=== PATIENT | male | born 1945 | race Caucasian/White ===

== ENCOUNTER 2018-12-28 10:47 | Emergency (ER) | payer MEDICARE, OTHER ==
[2018-12-28] MEDS ORDERED: Dextrose 50% Abboject 50 ML SYRINGE ONE (11:57)
[2018-12-28] MEDS ORDERED: Octreotide Acetate 100 MCG/ML VIAL ONE (12:07)
== END 2018-12-28 15:05 | disposition home or self-care (01) ==
LOC: ERS 10:47
DX: E11.649 Type 2 diabetes mellitus with hypoglycemia without coma (principal); I10 Essential (primary) hypertension; Z79.899 Other long term (current) drug therapy; Z79.4 Long term (current) use of insulin
CPT/HCPCS: 82962; J2354; 36416; 96372; 96374

== ENCOUNTER 2019-04-11 09:42 | Inpatient (IN) | payer MEDICARE, OTHER ==
[2019-04-11 11:02] LABS: Bacteria/HPF None Seen HPF (None Seen); Bilirubin Negative (Negative); Blood, Urine 1+ (Negative); Clarity Clear (Clear); Glucose, Urine (Dipstick) Greater than 1000 mg/dL (Negative); Leukocyte Negative Leu/uL (Negative); Nitrite Negative (Negative); Protein, Urine (Dipstick) 100 mg/dL (Neg-Trace); RBC/HPF 0-3 HPF (0-3); Squamous Epithelial 0-3 HPF (0-3); Urobilinogen Normal mg/dL (Less than 2); WBC/HPF 0-3 HPF (0-3)
[2019-04-11 11:43] LABS: #Eosinphils 0.1 thou/uL (0.0-0.7); #Lymphocytes 1.2 thou/uL (1.20-3.40); #Monocytes 0.7 thou/uL (0.11-0.59); %Basophils 0.4 % (0.0-1.0); %Eosinophils 0.9 % (0.0-10.0); %Lymphocytes 17.1 % (21.0-51.0); %Monocytes 10.6 % (0.0-10.0); %Neutrophils 71.1 % (42.0-75.0); Hemoglobin 13.8 g/dL (14.0-18.0); Mean Corpuscular HGB CONC 34.3 g/dL (32.0-36.0); Mean Corpuscular Volume 96.2 fL (78.0-98.0); Platelet Count 202 thou/uL (130-400); RBC Distribution Width 13.9 % (11.5-14.5)
--- NOTE | 2019-04-11 11:47 | CT ---
NONCONTRAST CT HEAD: Date: 04/11/19 HISTORY: Altered mental status. Recent fall. COMPARISON: 12/05/10. FINDINGS: Diminished attenuation is seen in the periventricular white matter, which is nonspecific, but likely attributable to chronic small vessel ischemic changes, which do appear progressed when compared to th e prior exam. There is a low density area in the left parietal lobe. While this could potentially rep resent volume averaging through a sulcus, this is worrisome for a small focal area of encephalomalaci a, likely related to remote area of infarction. There is no evidence of an acute cortical infarction, hemorrhage, mass effect, or midline shift. There is mild cerebral volume loss. The ventricular syste m is normal in size, shape, and position for the degree of sulcal atrophy. Calvarial structures have a normal appearance. The visualized paranasal sinuses and mastoid air cells are clear. IMPRESSION: No acute intracranial abnormality is demonstrated. POS: [facility]
[2019-04-11 12:14] LABS: ALT (SGPT) 13 U/L (8-55); AST (SGOT) 13 U/L (5-34); Albumin 3.5 g/dL (3.4-4.8); Alcohol Less than 10 mg/dL (Less than 10); Alkaline Phosphatase 85 U/L (40-150); Anion Gap 24 mmol/L (10-20); BUN (Urea Nitrogen) 12 mg/dL (8.4-25.7); Bilirubin, Total 0.8 mg/dL (0.2-1.2); CK (CPK) 80 U/L (30-200); Calc. Creatinine Clearance 0 mL/min (70-130); Calcium 8.8 mg/dL (7.8-10.44); Carbon Dioxide 15 mmol/L (23-31); Chloride 101 mmol/L (98-107); Estimated GFR-MDRD 56; Globulin 3.1 g/dL (2.4-3.5); Glucose 441 mg/dL (83-110); Protein, Total 6.6 g/dL (5.8-8.1); Sodium 137 mmol/L (136-145)
--- NOTE | 2019-04-11 12:16 | RAD ---
XR Chest 1 View Portable History: Trauma Comparison: Radiograph 2017 Findings: Heart size is enlarged. Mild pulmonary venous congestion. No pneumothorax. No effusion. No acute osseous abnormality. Impression: Cardiomegaly and pulmonary venous congestion.
[2019-04-11 12:20] LABS: Potassium 2.8 mmol/L (3.5-5.1)
[2019-04-11 12:26] LABS: CKMB 3.9 ng/mL (0-6.6)
[2019-04-11] MEDS ORDERED: Lorazepam 2 MG/ML VIAL ONE (13:07)
[2019-04-11] MEDS ORDERED: Insulin Regular 300 UNITS/3 ML VIAL ONE (13:30)
--- NOTE | 2019-04-11 13:36 | RAD ---
XR Wrist 3 Rt View STANDARD History: Wrist pain Comparison: None. Findings: No acute fracture or malalignment. Mild narrowing of the radiocarpal joint. Small wrist nick nt effusion. Impression: No acute fracture or malalignment. Mild radiocarpal joint space narrowing, degenerative i n nature.
[2019-04-11] MEDS ORDERED: HUMULIN R 100 UNITS in Sodium Chloride 0.9% 100 ML IVPB SCH (14:15)
--- NOTE | 2019-04-11 14:32 | HP ---
PRIMARY CARE PHYSICIAN: Gilberto Bell MD CHIEF COMPLAINT: "I fell at home." HISTORY OF PRESENT ILLNESS: Mr. Gray is a pleasant 73-year-old gentleman, who was brought in via EMS. Apparently, his called because he had a fall. The patient is a bit altered and therefore, it is unclear how reliable his history is. He knows where he is and what year it is, but he does not follow commands all the time and sometimes he will have a long delay when answering questions and does not always answer them. But apparently, he has a history of diabetes mellitus and hypertension and he was becoming lightheaded and falling. The patient says that he has been feeling unsteady for the last couple of weeks. He also notes trouble with his urine. He says that when he feels the urge to go to the bathroom, he has to go right then, but then he will not make it in time and will notice a lot of dribbling down his leg. He also says that he has been extremely thirsty for the last few weeks, but denies any fevers or chills or nausea or vomiting. He is unable to tell me how much insulin he normally takes for his diabetes, nor he is able to answer the question whether or not he has missed any doses, but when he arrived in the emergency room, his blood glucose was in the 400s. His CO2 level was low and he had a high anion gap. He is being admitted for DKA. The patient also had a CT scan of the head, which was negative and also had a chest x-ray showing some mild pulmonary vascular congestion. REVIEW OF SYSTEMS: CONSTITUTIONAL: The patient denies any fevers or chills. No night sweats. No weight loss. HEENT: He does admit to some mild headache, but no visual changes. No sore throat. No rhinorrhea. No neck pain. No adenopathy. PULMONARY: No hemoptysis. No cough. No wheezing. CARDIOVASCULAR: He denies any chest pain. No shortness of breath. No PND. No orthopnea. GASTROINTESTINAL: No abdominal pain. No nausea. No vomiting. No change in bowels. GENITOURINARY: He does admit to some urinary frequency and difficulty controlling his bladder. No dysuria. No hematuria. MUSCULOSKELETAL: No muscle pains, weakness, or joint pains. NEUROLOGIC: No focal weakness or numbness. No seizures. PSYCHIATRIC: No symptoms of anxiety or depression. SKIN AND INTEGUMENT: No skin changes. No rash. ENDOCRINE: He does admit to polyuria and polydipsia. PAST MEDICAL HISTORY: Significant for diabetes mellitus type 2 as well as hypertension. PAST SURGICAL HISTORY: He has had a cholecystectomy as well as surgery for an ingrown toe nail. ALLERGIES: NO KNOWN DRUG ALLERGIES. SOCIAL HISTORY: He is . He is a nonsmoker. He occasionally drinks. He has 2 children. FAMILY HISTORY: Negative for any heritable diseases. CURRENT MEDICATIONS: Unknown. PHYSICAL EXAMINATION: GENERAL: He is alert, but he is a bit disoriented even though he is able to tell me where he is and what he thought it was 2019, but he did know the month. He does appear altered and confused. VITAL SIGNS: The blood pressure was 183/92, heart rate 70, respiratory rate of 16, and temperature is 98.3. HEENT: His pupils are equal, round, and reactive to light. Extraocular muscles are intact. His sclerae are anicteric. Throat, there is no erythema. No exudates. NECK: No adenopathy. No bruits. LUNGS: Clear to auscultation. There is an occasional rhonchi, but no wheezing. No rales. CARDIOVASCULAR: He has a normal S1 and S2. There is no S3 or S4. No murmurs, clicks, or rubs. ABDOMEN: Soft. It is nontender and nondistended. Positive for bowel sounds. There is no rebound or guarding. EXTREMITIES: He has trace calf edema. No calf tenderness, however. No joint effusions. He does appear to have a scar on the knee, possibly a surgical scar. NEUROLOGIC: His cranial nerves II through XII are intact and his muscle strength is 5/5. SKIN AND INTEGUMENT: He has some excoriations on his right upper extremity with some mild erythema surrounding them. Multiple scratches and on his feet, he has mycotic nails and then excoriation under the plantar aspect of the right foot. LABORATORY DATA: The urinalysis was significant for glucose as well as ketones. On the CBC, the white blood cell count is 7.0, hemoglobin is 13.8, hematocrit is 40.4, and platelet count is 202. Sodium is 137, potassium 2.8, chloride is 101, CO2 is 15, BUN of 12, creatinine 1.26, and glucose is 441. Troponin is 0.040. Natriuretic peptide is 215, and hydroxybutyrate was 7.32. ASSESSMENT AND PLAN: 1. This is a pleasant 73-year-old gentleman, who presents with generalized weakness and falls as well as elevated blood glucose and elevated anion gap. He is a technically in diabetic ketoacidosis and with his alterations, which is unclear whether or not this is new or not, he will be treated as such and admitted to the [facility], started on the insulin drip protocol for diabetic ketoacidosis. 2. With regard to hypertension, for now, we will place him on p.r.n. medications for elevated blood pressure. Once he is more stabilized, then we can consider an MABEL inhibitor. We will also need to reconcile and restart his home medications as well. 3. Metabolic encephalopathy. This is likely due to the current illness. However, there he could have some baseline dementia as he does not appear to be very well cared for. This may be a chronic ongoing problem and for this reason, we will consult Case Management to see if we can investigate his home situation and he may need some additional help at home such as home health. Job ID: [id number]
[2019-04-11] MEDS ORDERED: Sodium Chloride 0.9% 1,000 ML IV PRN ×4 (16:50)
[2019-04-11] MEDS ORDERED: cloNIDine 0.1 MG TAB PO PRN (16:50)
[2019-04-11] MEDS ORDERED: NS 0.9% w/ 20 MEQ KCL 1,000 ML IV PRN ×2 (16:50)
[2019-04-11] MEDS ORDERED: CCU Electrolyte Replacement 1 EACH IVPB ONE (16:50)
[2019-04-11] MEDS ORDERED: Ondansetron PF 4 MG/2 ML Vial IVP PRN (16:50)
[2019-04-11] MEDS ORDERED: Dextrose 5 %-0.45 % NaCl 1,000 ML IV PRN (16:50)
[2019-04-11] MEDS ORDERED: Ondansetron ODT 4 MG TAB PO PRN (16:50)
[2019-04-11] MEDS ORDERED: Magnesium Oxide 400 MG TAB PO PRN ×2 (16:55)
[2019-04-11] MEDS ORDERED: Potassium Phosphate 9 MMOL in Sodium Chloride 0.9% 100 ML IVPB PRN (16:55)
[2019-04-11] MEDS ORDERED: Potassium Chloride 40 MEQ in Premix Bag 1 BAG IVPB PRN (16:55)
[2019-04-11] MEDS ORDERED: Potassium Phosphate 12 MMOL in Sodium Chloride 0.9% 250 ML 250 ML IV PRN (16:55)
[2019-04-11] MEDS ORDERED: PHOS-NAK 1 PKT PACK PO PRN ×2 (16:55)
[2019-04-11] MEDS ORDERED: Potassium Chloride 20 MEQ TAB PO PRN (16:55)
[2019-04-11] MEDS ORDERED: CCU ELECTROLYTE REPLACEMENT PROTOCOL FS PRN (16:55)
[2019-04-11] MEDS ORDERED: Potassium Phosphate 15 MMOL in Sodium Chloride 0.9% 250 ML 250 ML IV PRN (16:55)
[2019-04-11] MEDS ORDERED: Multivitamins, Adult 10 ML in Sodium Chloride 0.9% 500 ML IV SCH (17:15)
[2019-04-11 17:25] LABS: Anion Gap 23 mmol/L (10-20); BUN (Urea Nitrogen) 10 mg/dL (8.4-25.7); Calc. Creatinine Clearance 0 mL/min (70-130); Calcium 9.1 mg/dL (7.8-10.44); Carbon Dioxide 13 mmol/L (23-31); Chloride 106 mmol/L (98-107); Estimated GFR-MDRD 64; Glucose 166 mg/dL (83-110); Sodium 139 mmol/L (136-145)
[2019-04-11] MEDS: Lorazepam 2 MG/ML VIAL SLOW IVP PRN ×2 (17:31→23:42)
[2019-04-11 17:37] LABS: Potassium 2.9 mmol/L (3.5-5.1)
[2019-04-11] MEDS: Thiamine HCl 200 MG/2 ML VIAL SLOW IVP SCH (18:25)
[2019-04-11] MEDS: D5 1/2 NS w/20 mEq KCL 1,000 ML IV PRN ×2 (18:31→22:51)
[2019-04-11] MEDS: hydrALAZINE 20 MG/ML VIAL SLOW IVP PRN (19:22)
[2019-04-11] MEDS ORDERED: Acetaminophen 1,000 MG in Premix Bag 1 BAG IVPB SCH (20:45)
[2019-04-11] MEDS ORDERED: Metoprolol Tartrate 5 MG/5 ML VIAL IVP SCH (20:45)
[2019-04-11] MEDS ORDERED: Potassium Chloride 40 MEQ in Sodium Chloride 0.9% 500 ML IVPB SCH (21:00)
[2019-04-11 22:19] LABS: Anion Gap 24 mmol/L (10-20); BUN (Urea Nitrogen) 10 mg/dL (8.4-25.7); Calc. Creatinine Clearance 85 mL/min (70-130); Calcium 9.1 mg/dL (7.8-10.44); Carbon Dioxide 10 mmol/L (23-31); Chloride 107 mmol/L (98-107); Estimated GFR-MDRD 59; Glucose 289 mg/dL (83-110); Sodium 138 mmol/L (136-145)
[2019-04-11 22:22] LABS: Potassium 2.9 mmol/L (3.5-5.1)
[2019-04-11] MEDS: Famotidine 20 MG TAB PO SCH (22:24)
[2019-04-11] MEDS: Vancomycin HCl 1.5 GM in Sodium Chloride 0.9% 250 ML 300 ML IVPB SCH (22:55)
[2019-04-12 01:17] LABS: Anion Gap 18 mmol/L (10-20); BUN (Urea Nitrogen) 9 mg/dL (8.4-25.7); Calc. Creatinine Clearance 91 mL/min (70-130); Calcium 9.4 mg/dL (7.8-10.44); Carbon Dioxide 15 mmol/L (23-31); Chloride 111 mmol/L (98-107); Estimated GFR-MDRD 63; Glucose 178 mg/dL (83-110); Sodium 141 mmol/L (136-145)
[2019-04-12] MEDS: Piperacillin/Tazobactam 3.375 GM in Sodium Chloride 0.9% 100 ML IVPB SCH ×4 (01:17→18:23)
[2019-04-12 01:21] LABS: Potassium 2.9 mmol/L (3.5-5.1)
[2019-04-12] MEDS: Potassium Chloride 40 MEQ in Sodium Chloride 0.9% 250 ML 250 ML IVPB PRN ×2 (01:49→08:27)
[2019-04-12] MEDS: D5 1/2 NS w/20 mEq KCL 1,000 ML IV PRN ×5 (02:50→22:40)
[2019-04-12] MEDS: HUMULIN R 100 UNITS in Sodium Chloride 0.9% 100 ML IVPB SCH (03:05)
[2019-04-12] MEDS: Lorazepam 2 MG/ML VIAL SLOW IVP PRN ×2 (05:20→10:07)
[2019-04-12 06:08] LABS: #Lymphocytes 1.6 thou/uL (1.20-3.40); #Monocytes 1.3 thou/uL (0.11-0.59); #Neutrophils 9.3 thou/uL (1.40-6.50); %Eosinophils 0.1 % (0.0-10.0); %Lymphocytes 13.4 % (21.0-51.0); %Monocytes 10.6 % (0.0-10.0); %Neutrophils 75.8 % (42.0-75.0); Hemoglobin 12.9 g/dL (14.0-18.0); Mean Corpuscular HGB CONC 34.3 g/dL (32.0-36.0); Mean Corpuscular Hemoglobin 32.9 pg (27.0-31.0); Mean Corpuscular Volume 95.9 fL (78.0-98.0); Mean Platelet Volume 6.9 fL (7.4-10.4); Platelet Count 232 thou/uL (130-400); RBC Distribution Width 14.1 % (11.5-14.5); Red Blood Cell (RBC) Count 3.93 mill/uL (4.70-6.10); White Blood Cell (WBC) Count 12.3 thou/uL (4.8-10.8)
[2019-04-12 06:31] LABS: Anion Gap 14 mmol/L (10-20); BUN (Urea Nitrogen) 10 mg/dL (8.4-25.7); Calc. Creatinine Clearance 105 mL/min (70-130); Calcium 8.9 mg/dL (7.8-10.44); Carbon Dioxide 16 mmol/L (23-31); Chloride 113 mmol/L (98-107); Estimated GFR-MDRD 71; Glucose 203 mg/dL (83-110); Magnesium 1.2 mg/dL (1.6-2.6); Sodium 140 mmol/L (136-145)
[2019-04-12 06:32] LABS: Phosphorus 1.6 mg/dL (2.3-4.7)
[2019-04-12 06:36] LABS: Potassium 2.5 mmol/L (3.5-5.1)
[2019-04-12] MEDS: Magnesium 2 GM/50 ML 2 GM in Premix Bag 1 BAG IVPB PRN (06:46)
[2019-04-12] MEDS ORDERED: Magnesium Sulfate 3 GM in Sodium Chloride 0.9% 100 ML IVPB SCH (07:45)
[2019-04-12] MEDS: Potassium Chloride 20 MEQ in Sodium Chloride 0.9% 250 ML 250 ML IVPB SCH ×2 (08:55→15:03)
[2019-04-12 08:59] LABS: Actual Bicarbonate (HCO3a) 19.2 mEq/L (22-28); Base Excess (BEa) -5.1 mEq/L (-2.0 to +3.0); CO2 Tension 33.8 mmHg (35.0-45.0); Calcium, Ionized 1.22 mmol/L (1.12-1.30); Carboxyhemoglobin (COHb) 0.8 gm% (0.0-3.0); Hemoglobin (Hb) 14.1 g/dL (14.0-18.0); Potassium - ABG Lab 2.73 mmol/L (3.70-5.30); pH, Arterial 7.37 (7.35-7.45)
[2019-04-12 09:01] LABS: Puncture Site RR
[2019-04-12] MEDS: Enoxaparin Sodium 40 MG/0.4 ML SYRINGE SC SCH (10:08)
[2019-04-12] MEDS: Famotidine 20 MG TAB PO SCH ×2 (10:09→22:10)
[2019-04-12] MEDS: Vancomycin HCl 1.5 GM in Sodium Chloride 0.9% 250 ML 300 ML IVPB SCH ×2 (10:22→22:09)
--- NOTE | 2019-04-12 11:19 | CON ---
DATE OF CONSULTATION: HISTORY OF PRESENT ILLNESS: Dillon Tyson is a 73-year-old gentleman, who is in the MICU. Reason for consultation, he is encephalopathic, presented to the hospital yesterday with uncontrolled diabetes and hypertension after became lightheaded and apparently falling down. Blood sugar 320. Unable to give any history at this stage. Apparently, his is in the hospital. PAST MEDICAL HISTORY: Pertinent for apparently diabetes, hypertension, possibly some unknown pulmonary issues. PAST SURGICAL HISTORY: Cholecystectomy. SOCIAL HISTORY: History of alcohol intake. No smoking. From the history that we get, admitting physician apparently spoke to him at length. MEDICATIONS: His home medicine has included unknown medication. ALLERGIES: NOT KNOWN. REVIEW OF SYSTEMS: Otherwise unobtainable. Of note, the patient is clearly encephalopathic. Better contact family members to get additional information. He was last here in the ER in December. At that time, reviewing his medical records reveal that he presented with some swelling of his legs. They are painful. Right knee contusion was done. Once again, there was no list of his home medication at that time. PHYSICAL EXAMINATION: VITAL SIGNS: Blood pressure 154/75, temperature 97, pulse 101, and respirations 18. CHEST: Decreased breath sounds. No wheezing. CARDIAC: Normal S1 and S2. No gallops. ABDOMEN: No masses. EXTREMITIES: Trace edema. LABORATORY DATA: White count 12,000, hemoglobin and hematocrit of 12 and 37, platelet count is normal. PO2 is 81, pCO2 of 30, pH is 7.37. Glucose and lytes are normal. Potassium 2.5. Blood culture, gram-positive cocci. DIAGNOSTIC STUDIES: Chest x-ray shows no acute infiltrates. He had an x-ray taken of his wrist, which shows no acute fractures. He had a CT done of his brain, which showed no acute renal abnormality. Some low-density in left parietal lobe. ASSESSMENT: Metabolic encephalopathy, gram-positive sepsis, diabetes, obesity, and sleep apnea. PLAN: I will minimize any kind of sedation on the patient, needs to be covered for gram-positive sepsis. Continue diabetic care. Supportive care. We will try and get information from family as they arrive. This is a 70-minute consultation note, 50% direct patient care. Job ID: [id number]
[2019-04-12 13:22] LABS: Potassium 2.7 mmol/L (3.5-5.1)
--- NOTE | 2019-04-12 14:44 | PDOC.PN ---
- Subjective Encounter Start Date: 04/12/19 Encounter Start Time: 10:30 Subjective: pt up in bed very confused - Objective Resuscitation Status - Order Detail: 04/11/19 13:40 Resuscitation Status Routine Resuscitation Status: FULL: Full Resuscitation Vital Signs & Weight: Vital Signs (12 hours) Temp BP Pulse Ox 04/12/19 12:06 165/97 H 04/12/19 10:42 98.6 F 04/12/19 08:13 99 04/12/19 08:00 154/75 H 04/12/19 07:07 97.0 F L 04/12/19 05:15 99.2 F 04/12/19 04:39 100.7 F H Weight Weight 248 lb 11.2 oz Most Recent Monitor Data Heart Rate from ECG 78 NIBP 163/87 NIBP BP-Mean 112 Respiration from ECG 25 SpO2 100 I&O: 04/11/19 04/12/19 04/13/19 06:59 06:59 06:59 Intake Total 4050 1550 Output Total 2375 1100 Balance 1675 450 Result Diagrams: 04/12/19 05:52 04/12/19 12:35 Additional Labs: Accuchecks 04/12/19 04/12/19 04/12/19 14:01 13:18 11:49 POC Glucose 223 H 202 H 257 H 04/12/19 04/12/19 04/12/19 11:15 09:55 08:57 POC Glucose 225 H 224 H 215 H 04/12/19 04/12/19 04/12/19 07:08 05:26 04:18 POC Glucose 227 H 177 H 150 H 04/12/19 04/12/19 04/12/19 03:16 02:38 01:24 POC Glucose 123 H 125 H 172 H 04/12/19 04/11/19 04/11/19 00:41 23:26 22:20 POC Glucose 194 H 245 H 281 H 04/11/19 04/11/19 04/11/19 21:24 20:23 19:06 POC Glucose 308 H 291 H 250 H 04/11/19 04/11/19 04/11/19 18:40 17:45 16:32 POC Glucose 227 H 200 H 222 H 04/11/19 14:48 POC Glucose 387 H Phys Exam - Physical Examination Neck: no nodes, no JVD, supple, full ROM Respiratory: no wheezing, no rales, no rhonchi, wheezing present, clear to auscultation bilateral Cardiovascular: RRR, no significant murmur, no rub, gallop, irregular Gastrointestinal: soft, non-tender, no distention, positive bowel sounds Dx/Plan (1) Acute metabolic encephalopathy Code(s): G93.41 - METABOLIC ENCEPHALOPATHY Status: Acute (2) Bacteremia Code(s): R78.81 - BACTEREMIA Status: Acute (3) Alcohol abuse Code(s): F10.10 - ALCOHOL ABUSE, UNCOMPLICATED Status: Acute (4) Hypokalemia Code(s): E87.6 - HYPOKALEMIA Status: Acute (5) Hypomagnesemia Code(s): E83.42 - HYPOMAGNESEMIA Status: Acute (6) Dehydration Code(s): E86.0 - DEHYDRATION Status: Acute - Plan will continue iv abx, pt very confused not sure if he is drinking -: pt appears very dehydration -: unable to obtain any history * . Review of Systems - Review of Systems Other: unable to obtain - Medications/Allergies Allergies/Adverse Reactions: Allergies Allergy/AdvReac Type Severity Reaction Status Date / Time No Known Allergies Allergy Unverified 04/11/19 14:06 Medications: Current Medications Acetaminophen (Tylenol) 650 mg PO Q4H PRN PRN Reason: Headache/Fever/Mild Pain (1-3) Clonidine (Catapres) 0.1 mg PO Q4H PRN PRN Reason: SBP >= 180 Enoxaparin Sodium (Lovenox) 40 mg SC 0900 [facility] Last Admin: 04/12/19 10:08 Dose: Not Given Famotidine (Pepcid) 20 mg PO BID [facility] Last Admin: 04/12/19 10:09 Dose: Not Given Hydralazine HCl (Apresoline) 10 mg SLOW IVP Q4H PRN PRN Reason: SBP > 180 and HR < 70 Last Admin: 04/11/19 19:22 Dose: 10 mg Dextrose/Sodium Chloride (D5 1/2 Ns) 1,000 mls @ 250 mls/hr IV .Q4H PRN; Protocol PRN Reason: Step 4 of DKA Protocol Potassium Chloride/Dextrose/Sod Cl (D5 1/2 Ns W/20 Meq Kcl) 1,000 mls @ 250 mls /hr IV .Q4H PRN; Protocol PRN Reason: Step 4 of DKA Protocol Last Admin: 04/12/19 10:23 Dose: 1,000 mls Insulin Human Regular 100 (units/ Sodium Chloride) 101 mls @ 0 mls/hr IVPB INF CHASE; Protocol Last Admin: 04/12/19 03:05 Dose: 101 mls Sodium Chloride (Normal Saline 0.9%) 1,000 mls @ 500 mls/hr IV .Q2H PRN; Protocol PRN Reason: Step 1 of DKA Protocol Sodium Chloride (Normal Saline 0.9%) 1,000 mls @ 1,000 mls/hr IV .Q1H PRN; Protocol PRN Reason: Step 1 of DKA Protocol Sodium Chloride (Normal Saline 0.9%) 1,000 mls @ 250 mls/hr IV .Q4H PRN; Protocol PRN Reason: SEE STEP 3 OF DKA PROTOCOL Sodium Chloride (Normal Saline 0.9%) 1,000 mls @ 500 mls/hr IV .Q2H PRN; Protocol PRN Reason: Step 2 of DKA Protocol Potassium Chloride/Sodium Chloride (Ns 0.9% W/ 20 Meq Kcl) 1,000 mls @ 500 mls/ hr IV .Q2H PRN; Protocol PRN Reason: Step 2 of DKA Protocol Potassium Chloride/Sodium Chloride (Ns 0.9% W/ 20 Meq Kcl) 1,000 mls @ 250 mls/ hr IV .Q4H PRN; Protocol PRN Reason: SEE STEP 3 OF DKA PROTOCOL Potassium Chloride 40 meq/ (Sodium Chloride) 270 mls @ 135 mls/hr IVPB ASDIR PRN PRN Reason: FOR SERUM K+ 2.5 - 3.5 Last Admin: 04/12/19 08:27 Dose: 270 mls Potassium Chloride 40 meq/ (Device) 100 mls @ 50 mls/hr IVPB ASDIR PRN PRN Reason: FOR SERUM K+ 2.5 - 3.5 Magnesium Sulfate 1 gm/ Sodium (Chloride) 102 mls @ 102 mls/hr IV PRN PRN PRN Reason: MAG LEVEL 1.4 - 2.0 Magnesium Sulfate 2 gm/ Device 50 mls @ 50 mls/hr IVPB ASDIR PRN PRN Reason: MAGNESIUM < 1.4 Last Admin: 04/12/19 06:46 Dose: 50 mls Potassium Phosphate 9 mmol/ (Sodium Chloride) 103 mls @ 25.75 mls/hr IVPB ASDIR PRN PRN Reason: Phosphate 1.0-1.8 Last Admin: 04/12/19 08:27 Dose: 103 mls Potassium Phosphate 12 mmol/ (Sodium Chloride) 254 mls @ 63.5 mls/hr IV ASDIR PRN PRN Reason: Serum phosphate 0.5-0.9 Potassium Phosphate 15 mmol/ (Sodium Chloride) 255 mls @ 63.75 mls/hr IV ASDIR PRN PRN Reason: Serum Phos < 0.5 Piperacillin Sod/Tazobactam (Sod 3.375 gm/ Sodium Chloride) 100 mls @ 200 mls/ hr IVPB Q6HR [facility] Last Admin: 04/12/19 12:04 Dose: 100 mls Vancomycin HCl 1.5 gm/ Sodium (Chloride) 300 mls @ 200 mls/hr IVPB 1000,2200 [facility] Last Admin: 04/12/19 10:22 Dose: 300 mls Lorazepam (Ativan) 1 mg SLOW IVP Q4H PRN PRN Reason: Anxiety/Agitation Last Admin: 04/12/19 10:07 Dose: 1 mg Magnesium Oxide (Magnesium Oxide) 400 mg PO BIDPRN PRN PRN Reason: FOR SERUM MAG 1.4 - 2.0 Magnesium Oxide (Magnesium Oxide) 800 mg PO PRN PRN PRN Reason: FOR SERUM MAG < 1.4 Miscellaneous Medication (Phos-Nak) 1 pkt PO TIDPRN PRN PRN Reason: FOR PHOS LEVEL 1.0 - 1.8 Miscellaneous Medication (Phos-Nak) 2 pkt PO TIDPRN PRN PRN Reason: FOR PHOS LEVEL 0.5 - 1.0 Miscellaneous Medication (Pharmacy To Dose) 1 each IVPB PRN PRN PRN Reason: EMPIRIC Ccu Electrolyte (Replacement Protocol) 0 each FS PRN PRN PRN Reason: FOR ELECTROLYTE REPLACEMENT Ondansetron HCl (Zofran Odt) 4 mg PO Q6H PRN PRN Reason: Nausea/Vomiting Ondansetron HCl (Zofran) 4 mg IVP Q6H PRN PRN Reason: Nausea/Vomiting Potassium Chloride (K-Dur) 40 meq PO ASDIR PRN PRN Reason: FOR SERUM K+ 2.5 - 3.5 Potassium Chloride (Klor-Con) 40 meq PER TUBE ASDIR PRN PRN Reason: FOR SERUM K+ 2.5-3.5 Thiamine HCl (Thiamine Hcl) 100 mg SLOW IVP Q24HR [facility] Last Admin: 04/11/19 18:25 Dose: 100 mg
[2019-04-12] MEDS: Thiamine HCl 200 MG/2 ML VIAL SLOW IVP SCH (18:19)
[2019-04-12] MEDS: Atorvastatin Calcium 40 MG TAB PO SCH (22:09)
[2019-04-13] MEDS: HUMULIN R 100 UNITS in Sodium Chloride 0.9% 100 ML IVPB SCH (01:02)
[2019-04-13] MEDS: Piperacillin/Tazobactam 3.375 GM in Sodium Chloride 0.9% 100 ML IVPB SCH ×5 (01:07→23:44)
[2019-04-13] MEDS: D5 1/2 NS w/20 mEq KCL 1,000 ML IV PRN ×5 (02:45→23:44)
[2019-04-13 05:13] LABS: Anion Gap 12 mmol/L (10-20); BUN (Urea Nitrogen) 5 mg/dL (8.4-25.7); Calc. Creatinine Clearance 119 mL/min (70-130); Calcium 8.9 mg/dL (7.8-10.44); Carbon Dioxide 19 mmol/L (23-31); Chloride 113 mmol/L (98-107); Estimated GFR-MDRD 82; Glucose 163 mg/dL (83-110); Magnesium 1.3 mg/dL (1.6-2.6); Sodium 141 mmol/L (136-145)
[2019-04-13 05:24] LABS: Potassium 2.5 mmol/L (3.5-5.1)
[2019-04-13] MEDS: Magnesium 2 GM/50 ML 2 GM in Premix Bag 1 BAG IVPB PRN (05:34)
[2019-04-13 09:18] LABS: Vancomycin, Trough 24.3 ug/mL
[2019-04-13] MEDS: Famotidine 20 MG TAB PO SCH ×2 (09:45→19:57)
[2019-04-13] MEDS: Enoxaparin Sodium 40 MG/0.4 ML SYRINGE SC SCH (09:45)
[2019-04-13] MEDS: Aspirin Chewable 81 MG TAB PO SCH (09:45)
[2019-04-13] MEDS ORDERED: Potassium Phosphate 12 MMOL in Sodium Chloride 0.9% 100 ML IVPB SCH (10:15)
[2019-04-13 10:30] LABS: ALT (SGPT) 13 U/L (8-55); AST (SGOT) 25 U/L (5-34); Alkaline Phosphatase 68 U/L (40-150); Bilirubin, Direct 0.5 mg/dL (0.1-0.3); Protein, Total 6.2 g/dL (5.8-8.1)
--- NOTE | 2019-04-13 13:47 | PDOC.PN ---
- Subjective Encounter Start Date: 04/13/19 Encounter Start Time: 10:30 Subjective: pt up in bed more alert than yestarday - Objective Resuscitation Status - Order Detail: 04/11/19 13:40 Resuscitation Status Routine Resuscitation Status: FULL: Full Resuscitation Vital Signs & Weight: Vital Signs (12 hours) Temp Pulse Ox 04/13/19 11:08 98.1 F 04/13/19 08:00 97 04/13/19 07:32 98.0 F 04/13/19 03:57 97.8 F Weight Admit Weight 237 lb 14.4 oz Weight 254 lb 4.8 oz Most Recent Monitor Data Heart Rate from ECG 70 NIBP 143/81 NIBP BP-Mean 101 Respiration from ECG 27 SpO2 100 I&O: 04/12/19 04/13/19 04/14/19 06:59 06:59 06:59 Intake Total 4050 8100 1750 Output Total 2375 6225 Balance 1675 1875 1750 Result Diagrams: 04/12/19 05:52 04/13/19 04:25 Additional Labs: Accuchecks 04/13/19 04/13/19 04/13/19 13:03 12:26 11:17 POC Glucose 201 H 203 H 180 H 04/13/19 04/13/19 04/13/19 10:04 09:04 08:02 POC Glucose 173 H 190 H 166 H 04/13/19 04/13/19 04/13/19 07:02 05:52 05:02 POC Glucose 171 H 159 H 159 H 04/13/19 04/13/19 04/13/19 04:06 03:05 02:04 POC Glucose 162 H 168 H 173 H 04/13/19 04/12/19 04/12/19 01:08 23:02 21:57 POC Glucose 177 H 152 H 157 H 04/12/19 04/12/19 04/12/19 21:26 19:51 19:05 POC Glucose 145 H 172 H 159 H 04/12/19 04/12/19 04/12/19 17:48 16:07 14:57 POC Glucose 162 H 163 H 164 H 04/12/19 14:01 POC Glucose 223 H Phys Exam - Physical Examination Neck: no nodes, no JVD, supple, full ROM Respiratory: no wheezing, no rales, no rhonchi, wheezing present, clear to auscultation bilateral Cardiovascular: RRR, no significant murmur, no rub, gallop, irregular Gastrointestinal: soft, non-tender, no distention, positive bowel sounds Musculoskeletal: no edema, pulses present, edema present Dx/Plan (1) Acute metabolic encephalopathy Code(s): G93.41 - METABOLIC ENCEPHALOPATHY Status: Acute (2) Bacteremia Code(s): R78.81 - BACTEREMIA Status: Acute (3) Alcohol abuse Code(s): F10.10 - ALCOHOL ABUSE, UNCOMPLICATED Status: Acute (4) Hypokalemia Code(s): E87.6 - HYPOKALEMIA Status: Acute (5) Hypomagnesemia Code(s): E83.42 - HYPOMAGNESEMIA Status: Acute (6) Dehydration Code(s): E86.0 - DEHYDRATION Status: Acute - Plan will continue abx for now -: will replace electrolytes for now -: will advance diet * . Review of Systems - Review of Systems Respiratory: negative: Cough, Dry, Shortness of Breath, Hemoptysis, SOB with Excertion, Pleuritic Pain, Sputum, Wheezing Cardiovascular: negative: chest pain, palpitations, orthopnea, paroxysmal nocturnal dyspnea, edema, light headedness, other Gastrointestinal: negative: Nausea, Vomiting, Abdominal Pain, Diarrhea, Constipation, Melena, Hematochezia, Other - Medications/Allergies Allergies/Adverse Reactions: Allergies Allergy/AdvReac Type Severity Reaction Status Date / Time No Known Allergies Allergy Unverified 04/11/19 14:06 Medications: Current Medications Acetaminophen (Tylenol) 650 mg PO Q4H PRN PRN Reason: Headache/Fever/Mild Pain (1-3) Aspirin (Aspirin Chewable) 81 mg PO DAILY [facility] Last Admin: 04/13/19 09:45 Dose: 81 mg Atorvastatin Calcium (Lipitor) 40 mg PO HS [facility] Last Admin: 04/12/19 22:09 Dose: Not Given Clonidine (Catapres) 0.1 mg PO Q4H PRN PRN Reason: SBP >= 180 Enoxaparin Sodium (Lovenox) 40 mg SC 0900 [facility] Last Admin: 04/13/19 09:45 Dose: 40 mg Famotidine (Pepcid) 20 mg PO BID [facility] Last Admin: 04/13/19 09:45 Dose: 20 mg Hydralazine HCl (Apresoline) 10 mg SLOW IVP Q4H PRN PRN Reason: SBP > 180 and HR < 70 Last Admin: 04/11/19 19:22 Dose: 10 mg Dextrose/Sodium Chloride (D5 1/2 Ns) 1,000 mls @ 250 mls/hr IV .Q4H PRN; Protocol PRN Reason: Step 4 of DKA Protocol Potassium Chloride/Dextrose/Sod Cl (D5 1/2 Ns W/20 Meq Kcl) 1,000 mls @ 250 mls /hr IV .Q4H PRN; Protocol PRN Reason: Step 4 of DKA Protocol Last Admin: 04/13/19 06:39 Dose: 1,000 mls Insulin Human Regular 100 (units/ Sodium Chloride) 101 mls @ 0 mls/hr IVPB INF CHASE; Protocol Last Admin: 04/13/19 01:02 Dose: 101 mls Sodium Chloride (Normal Saline 0.9%) 1,000 mls @ 500 mls/hr IV .Q2H PRN; Protocol PRN Reason: Step 1 of DKA Protocol Sodium Chloride (Normal Saline 0.9%) 1,000 mls @ 1,000 mls/hr IV .Q1H PRN; Protocol PRN Reason: Step 1 of DKA Protocol Sodium Chloride (Normal Saline 0.9%) 1,000 mls @ 250 mls/hr IV .Q4H PRN; Protocol PRN Reason: SEE STEP 3 OF DKA PROTOCOL Sodium Chloride (Normal Saline 0.9%) 1,000 mls @ 500 mls/hr IV .Q2H PRN; Protocol PRN Reason: Step 2 of DKA Protocol Potassium Chloride/Sodium Chloride (Ns 0.9% W/ 20 Meq Kcl) 1,000 mls @ 500 mls/ hr IV .Q2H PRN; Protocol PRN Reason: Step 2 of DKA Protocol Potassium Chloride/Sodium Chloride (Ns 0.9% W/ 20 Meq Kcl) 1,000 mls @ 250 mls/ hr IV .Q4H PRN; Protocol PRN Reason: SEE STEP 3 OF DKA PROTOCOL Potassium Chloride 40 meq/ (Sodium Chloride) 270 mls @ 135 mls/hr IVPB ASDIR PRN PRN Reason: FOR SERUM K+ 2.5 - 3.5 Last Admin: 04/12/19 08:27 Dose: 270 mls Potassium Chloride 40 meq/ (Device) 100 mls @ 50 mls/hr IVPB ASDIR PRN PRN Reason: FOR SERUM K+ 2.5 - 3.5 Magnesium Sulfate 1 gm/ Sodium (Chloride) 102 mls @ 102 mls/hr IV PRN PRN PRN Reason: MAG LEVEL 1.4 - 2.0 Magnesium Sulfate 2 gm/ Device 50 mls @ 50 mls/hr IVPB ASDIR PRN PRN Reason: MAGNESIUM < 1.4 Last Admin: 04/13/19 05:34 Dose: 50 mls Potassium Phosphate 9 mmol/ (Sodium Chloride) 103 mls @ 25.75 mls/hr IVPB ASDIR PRN PRN Reason: Phosphate 1.0-1.8 Last Admin: 04/12/19 08:27 Dose: 103 mls Potassium Phosphate 12 mmol/ (Sodium Chloride) 254 mls @ 63.5 mls/hr IV ASDIR PRN PRN Reason: Serum phosphate 0.5-0.9 Potassium Phosphate 15 mmol/ (Sodium Chloride) 255 mls @ 63.75 mls/hr IV ASDIR PRN PRN Reason: Serum Phos < 0.5 Piperacillin Sod/Tazobactam (Sod 3.375 gm/ Sodium Chloride) 100 mls @ 200 mls/ hr IVPB Q6HR [facility] Last Admin: 04/13/19 10:43 Dose: 100 mls Potassium Phosphate 12 mmol/ (Sodium Chloride) 104 mls @ 25 mls/hr IVPB ONE [facility] Stop: 04/13/19 16:00 Last Admin: 04/13/19 10:42 Dose: 104 mls Vancomycin HCl 1.5 gm/ Sodium (Chloride) 300 mls @ 200 mls/hr IVPB 1000,2200 [facility] Lorazepam (Ativan) 1 mg SLOW IVP Q4H PRN PRN Reason: Anxiety/Agitation Last Admin: 04/12/19 10:07 Dose: 1 mg Magnesium Oxide (Magnesium Oxide) 400 mg PO BIDPRN PRN PRN Reason: FOR SERUM MAG 1.4 - 2.0 Magnesium Oxide (Magnesium Oxide) 800 mg PO PRN PRN PRN Reason: FOR SERUM MAG < 1.4 Miscellaneous Medication (Phos-Nak) 1 pkt PO TIDPRN PRN PRN Reason: FOR PHOS LEVEL 1.0 - 1.8 Miscellaneous Medication (Phos-Nak) 2 pkt PO TIDPRN PRN PRN Reason: FOR PHOS LEVEL 0.5 - 1.0 Miscellaneous Medication (Pharmacy To Dose) 1 each IVPB PRN PRN PRN Reason: EMPIRIC Ccu Electrolyte (Replacement Protocol) 0 each FS PRN PRN PRN Reason: FOR ELECTROLYTE REPLACEMENT Ondansetron HCl (Zofran Odt) 4 mg PO Q6H PRN PRN Reason: Nausea/Vomiting Ondansetron HCl (Zofran) 4 mg IVP Q6H PRN PRN Reason: Nausea/Vomiting Potassium Chloride (K-Dur) 40 meq PO ASDIR PRN PRN Reason: FOR SERUM K+ 2.5 - 3.5 Potassium Chloride (Klor-Con) 40 meq PER TUBE ASDIR PRN PRN Reason: FOR SERUM K+ 2.5-3.5 Last Admin: 04/13/19 06:33 Dose: 40 meq Thiamine HCl (Thiamine Hcl) 100 mg SLOW IVP Q24HR [facility] Last Admin: 04/12/19 18:19 Dose: 100 mg
[2019-04-13] MEDS: Vancomycin HCl 1.5 GM in Sodium Chloride 0.9% 250 ML 300 ML IVPB SCH (16:20)
[2019-04-13] MEDS: Thiamine HCl 200 MG/2 ML VIAL SLOW IVP SCH (18:06)
[2019-04-13] MEDS: Atorvastatin Calcium 40 MG TAB PO SCH (19:57)
--- NOTE | 2019-04-13 20:12 | PRG ---
DATE OF SERVICE: 04/13/2019 SUBJECTIVE: Mr. Gray had no complaints. He is awaken from sleep. OBJECTIVE: VITAL SIGNS: His blood pressure is 168/75 this afternoon, 176/100 this evening. Heart rate in the 70s, respiratory rate is in the 20s. LUNGS: Clear. HEART: Regular rhythm. ABDOMEN: Soft. EXTREMITIES: Without edema. LABORATORY DATA: There is no new lab except blood glucoses which are all less than 200. Liver enzymes and bilirubin were normal this morning. He did have a potassium of 2.5 at 4:30 this morning. Sodium 141, chloride 113, bicarb 19, BUN 5, and creatinine 0.9. IMPRESSION: 1. Encephalopathy. 2. Diabetes. 3. Hypertension. 4. Hyperglycemia. 5. Hyperchloremic acidosis, ? renal tubular acidosis associated with diabetes. Apparently, his mental status has improved since admission. It is unclear to me what his baseline functional status is. He has a normal anion gap at this time. He has 2/2 blood cultures positive for staph. He may need a PICC depending on sensitivities. He is probably stable to move out of the intermediate care unit at some point. Job ID: [id number] MTDD
[2019-04-13 21:55] LABS: Vancomycin, Trough 17.6 ug/mL
[2019-04-13] MEDS ORDERED: Vancomycin HCl 1.5 GM in Sodium Chloride 0.9% 250 ML 300 ML IVPB SCH (22:00)
[2019-04-14] MEDS: Vancomycin HCl 1.25 GM in Sodium Chloride 0.9% 250 ML 250 ML IVPB SCH ×2 (00:14→11:44)
[2019-04-14] MEDS: HUMULIN R 100 UNITS in Sodium Chloride 0.9% 100 ML IVPB SCH (00:14)
[2019-04-14 05:18] LABS: #Eosinphils 0.3 thou/uL (0.0-0.7); #Lymphocytes 1.9 thou/uL (1.20-3.40); #Monocytes 1.2 thou/uL (0.11-0.59); #Neutrophils 6.6 thou/uL (1.40-6.50); %Basophils 0.4 % (0.0-1.0); %Monocytes 11.4 % (0.0-10.0); %Neutrophils 66.2 % (42.0-75.0); Hemoglobin 15.1 g/dL (14.0-18.0); Mean Corpuscular HGB CONC 33.8 g/dL (32.0-36.0); Mean Corpuscular Hemoglobin 32.9 pg (27.0-31.0); Mean Corpuscular Volume 97.2 fL (78.0-98.0); Mean Platelet Volume 7.2 fL (7.4-10.4); Platelet Count 203 thou/uL (130-400); RBC Distribution Width 14.9 % (11.5-14.5); Red Blood Cell (RBC) Count 4.61 mill/uL (4.70-6.10)
[2019-04-14 05:41] LABS: Anion Gap 13 mmol/L (10-20); BUN (Urea Nitrogen) 6 mg/dL (8.4-25.7); Calc. Creatinine Clearance 78 mL/min (70-130); Calcium 8.5 mg/dL (7.8-10.44); Carbon Dioxide 16 mmol/L (23-31); Chloride 117 mmol/L (98-107); Estimated GFR-MDRD 49; Glucose 136 mg/dL (83-110); Potassium 2.8 mmol/L (3.5-5.1); Sodium 143 mmol/L (136-145)
[2019-04-14] MEDS: Piperacillin/Tazobactam 3.375 GM in Sodium Chloride 0.9% 100 ML IVPB SCH ×4 (06:18→23:28)
[2019-04-14] MEDS: Famotidine 20 MG TAB PO SCH ×2 (08:04→20:15)
[2019-04-14] MEDS: Lorazepam 2 MG/ML VIAL SLOW IVP PRN (08:04)
[2019-04-14] MEDS: Aspirin Chewable 81 MG TAB PO SCH (08:04)
[2019-04-14] MEDS: D5 1/2 NS w/20 mEq KCL 1,000 ML IV PRN (08:04)
[2019-04-14] MEDS: Enoxaparin Sodium 40 MG/0.4 ML SYRINGE SC SCH (08:05)
[2019-04-14] MEDS ORDERED: Dextrose 5% in Water 1,000 ML IV PRN (09:28)
[2019-04-14] MEDS ORDERED: Dextrose 50% Abboject 50 ML SYRINGE SLOW IVP PRN (09:28)
[2019-04-14] MEDS ORDERED: Potassium Chloride 20 MEQ in Premix Bag 1 BAG IVPB SCH ×2 (09:30→10:00)
[2019-04-14 09:56] LABS: Magnesium 1.7 mg/dL (1.6-2.6); Phosphorus 2.8 mg/dL (2.3-4.7)
[2019-04-14] MEDS: Potassium Chloride 40 MEQ in Sodium Chloride 0.45% 1,000 ML IV SCH (11:42)
[2019-04-14] MEDS: Insulin Glargine 8 UNITS in Pre-Filled Syringe 1 EACH SC SCH (12:04)
--- NOTE | 2019-04-14 15:22 | PRG ---
DATE OF SERVICE: 04/14/2019 SUBJECTIVE: Dillon Gray remains stable. He is quicker to answer questions today. He is more alert. OBJECTIVE: VITAL SIGNS: He is afebrile. Heart rate is 82, respiratory rate is in the 20s, oximetry is in the high 90s. LUNGS: Clear. HEART: Regular rhythm. ABDOMEN: Soft and nontender. EXTREMITIES: Without asymmetry or edema. LABORATORY DATA: White count is 10, hemoglobin is 15.1, and platelets are 203,000. Sodium 143, potassium 2.8, chloride 117, bicarb 16, BUN 6, creatinine 1.43. Creatinine was 0.91 yesterday. Intake and output were positive IMPRESSION: Staphylococcus hominis bacteremia, likely a skin source. His blood cultures need to be repeated to make sure that he has converted to negative. He needs an echocardiogram. Certainly, it could be endocarditis. Infectious Disease consult might be considered to determine duration of antibiotic therapy. It is very likely he will end up needing a PICC line. He is stable to move out of the intermediate care unit in my opinion. Hopefully, his hyperchloremic acidosis will correct with administration of more free water. We will sign off on transfer out of the intermediate care unit. Job ID: [id number]
--- NOTE | 2019-04-14 15:54 | PDOC.PN ---
- Subjective Encounter Start Date: 04/14/19 Encounter Start Time: 11:45 Subjective: pt up in bed more awake - Objective Resuscitation Status - Order Detail: 04/11/19 13:40 Resuscitation Status Routine Resuscitation Status: FULL: Full Resuscitation Vital Signs & Weight: Vital Signs (12 hours) Temp Pulse Ox 04/14/19 11:13 97.7 F 04/14/19 08:00 97 04/14/19 07:33 97.4 F L Weight Admit Weight 237 lb 14.4 oz Weight 256 lb 8 oz Most Recent Monitor Data Heart Rate from ECG 82 NIBP 142/85 NIBP BP-Mean 104 Respiration from ECG 30 SpO2 99 I&O: 04/13/19 04/14/19 04/15/19 06:59 06:59 06:59 Intake Total 8100 9320 1750 Output Total 6225 5275 Balance 1875 4045 1750 Result Diagrams: 04/14/19 04:50 04/14/19 04:50 Additional Labs: Accuchecks 04/14/19 04/14/19 04/14/19 12:10 10:08 09:07 POC Glucose 288 H 202 H 185 H 04/14/19 04/14/19 04/14/19 06:54 06:02 05:07 POC Glucose 131 H 119 H 146 H 04/14/19 04/14/19 04/14/19 04:10 03:05 02:03 POC Glucose 117 H 187 H 215 H 04/14/19 04/14/19 04/13/19 01:09 00:07 23:04 POC Glucose 245 H 247 H 246 H 04/13/19 04/13/19 04/13/19 22:04 21:01 20:07 POC Glucose 220 H 210 H 219 H 04/13/19 04/13/19 04/13/19 18:15 17:09 16:05 POC Glucose 192 H 169 H 148 H 04/12/19 04/12/19 08:00 06:17 POC Glucose 233 H 202 H Phys Exam - Physical Examination Neck: no nodes, no JVD, supple, full ROM Respiratory: no wheezing, no rales, no rhonchi, wheezing present, clear to auscultation bilateral Cardiovascular: RRR, no significant murmur, no rub, gallop, irregular Gastrointestinal: soft, non-tender, no distention, positive bowel sounds Dx/Plan (1) Acute metabolic encephalopathy Code(s): G93.41 - METABOLIC ENCEPHALOPATHY Status: Acute (2) Bacteremia Code(s): R78.81 - BACTEREMIA Status: Acute (3) Alcohol abuse Code(s): F10.10 - ALCOHOL ABUSE, UNCOMPLICATED Status: Acute (4) Hypokalemia Code(s): E87.6 - HYPOKALEMIA Status: Acute (5) Hypomagnesemia Code(s): E83.42 - HYPOMAGNESEMIA Status: Acute (6) Dehydration Code(s): E86.0 - DEHYDRATION Status: Acute - Plan will replace electrolytes -: ebonieletty david will consult ID, not sure if po abx would work -: pt was very ill on admission. will continue ativan for alcohol withdrawal * . Review of Systems - Review of Systems Respiratory: negative: Cough, Dry, Shortness of Breath, Hemoptysis, SOB with Excertion, Pleuritic Pain, Sputum, Wheezing Cardiovascular: negative: chest pain, palpitations, orthopnea, paroxysmal nocturnal dyspnea, edema, light headedness, other Gastrointestinal: negative: Nausea, Vomiting, Abdominal Pain, Diarrhea, Constipation, Melena, Hematochezia, Other - Medications/Allergies Allergies/Adverse Reactions: Allergies Allergy/AdvReac Type Severity Reaction Status Date / Time No Known Allergies Allergy Unverified 04/11/19 14:06 Medications: Current Medications Acetaminophen (Tylenol) 650 mg PO Q4H PRN PRN Reason: Headache/Fever/Mild Pain (1-3) Aspirin (Aspirin Chewable) 81 mg PO DAILY [facility] Last Admin: 04/14/19 08:04 Dose: 81 mg Atorvastatin Calcium (Lipitor) 40 mg PO HS [facility] Last Admin: 04/13/19 19:57 Dose: 40 mg Clonidine (Catapres) 0.1 mg PO Q4H PRN PRN Reason: SBP >= 180 Dextrose/Water (Dextrose 50%) 25 gm SLOW IVP PRN PRN PRN Reason: Hypoglycemia Enoxaparin Sodium (Lovenox) 40 mg SC 0900 [facility] Last Admin: 04/14/19 08:05 Dose: 40 mg Famotidine (Pepcid) 20 mg PO BID [facility] Last Admin: 04/14/19 08:04 Dose: 20 mg Glucagon (Glucagon) 1 mg IM PRN PRN PRN Reason: Hypoglycemia Hydralazine HCl (Apresoline) 10 mg SLOW IVP Q4H PRN PRN Reason: SBP > 180 and HR < 70 Last Admin: 04/11/19 19:22 Dose: 10 mg Sodium Chloride (Normal Saline 0.9%) 1,000 mls @ 500 mls/hr IV .Q2H PRN; Protocol PRN Reason: Step 1 of DKA Protocol Sodium Chloride (Normal Saline 0.9%) 1,000 mls @ 1,000 mls/hr IV .Q1H PRN; Protocol PRN Reason: Step 1 of DKA Protocol Sodium Chloride (Normal Saline 0.9%) 1,000 mls @ 250 mls/hr IV .Q4H PRN; Protocol PRN Reason: SEE STEP 3 OF DKA PROTOCOL Sodium Chloride (Normal Saline 0.9%) 1,000 mls @ 500 mls/hr IV .Q2H PRN; Protocol PRN Reason: Step 2 of DKA Protocol Potassium Chloride/Sodium Chloride (Ns 0.9% W/ 20 Meq Kcl) 1,000 mls @ 500 mls/ hr IV .Q2H PRN; Protocol PRN Reason: Step 2 of DKA Protocol Potassium Chloride/Sodium Chloride (Ns 0.9% W/ 20 Meq Kcl) 1,000 mls @ 250 mls/ hr IV .Q4H PRN; Protocol PRN Reason: SEE STEP 3 OF DKA PROTOCOL Potassium Chloride 40 meq/ (Sodium Chloride) 270 mls @ 135 mls/hr IVPB ASDIR PRN PRN Reason: FOR SERUM K+ 2.5 - 3.5 Last Admin: 04/12/19 08:27 Dose: 270 mls Potassium Chloride 40 meq/ (Device) 100 mls @ 50 mls/hr IVPB ASDIR PRN PRN Reason: FOR SERUM K+ 2.5 - 3.5 Magnesium Sulfate 1 gm/ Sodium (Chloride) 102 mls @ 102 mls/hr IV PRN PRN PRN Reason: MAG LEVEL 1.4 - 2.0 Magnesium Sulfate 2 gm/ Device 50 mls @ 50 mls/hr IVPB ASDIR PRN PRN Reason: MAGNESIUM < 1.4 Last Admin: 04/13/19 05:34 Dose: 50 mls Potassium Phosphate 9 mmol/ (Sodium Chloride) 103 mls @ 25.75 mls/hr IVPB ASDIR PRN PRN Reason: Phosphate 1.0-1.8 Last Admin: 04/12/19 08:27 Dose: 103 mls Potassium Phosphate 12 mmol/ (Sodium Chloride) 254 mls @ 63.5 mls/hr IV ASDIR PRN PRN Reason: Serum phosphate 0.5-0.9 Potassium Phosphate 15 mmol/ (Sodium Chloride) 255 mls @ 63.75 mls/hr IV ASDIR PRN PRN Reason: Serum Phos < 0.5 Piperacillin Sod/Tazobactam (Sod 3.375 gm/ Sodium Chloride) 100 mls @ 200 mls/ hr IVPB Q6HR [facility] Last Admin: 04/14/19 12:27 Dose: 100 mls Vancomycin HCl 1.25 gm/ Sodium (Chloride) 250 mls @ 166.667 mls/hr IVPB 1100, 2300 [facility] Last Admin: 04/14/19 11:44 Dose: 250 mls Insulin Glargine 8 units/ (Miscellaneous Medication) 0.08 mls @ 0 mls/hr SC QAM [facility] Last Admin: 04/14/19 12:04 Dose: 0.08 mls Potassium Chloride 40 meq/ (Sodium Chloride) 1,020 mls @ 75 mls/hr IV .[id number] [facility] Last Admin: 04/14/19 11:42 Dose: 1,020 mls Dextrose/Water (D5w) 1,000 mls @ 0 mls/hr IV .Q0M PRN PRN Reason: Hypoglycemia Lorazepam (Ativan) 1 mg SLOW IVP Q4H PRN PRN Reason: Anxiety/Agitation Last Admin: 04/14/19 08:04 Dose: 1 mg Magnesium Oxide (Magnesium Oxide) 400 mg PO BIDPRN PRN PRN Reason: FOR SERUM MAG 1.4 - 2.0 Magnesium Oxide (Magnesium Oxide) 800 mg PO PRN PRN PRN Reason: FOR SERUM MAG < 1.4 Miscellaneous Medication (Phos-Nak) 1 pkt PO TIDPRN PRN PRN Reason: FOR PHOS LEVEL 1.0 - 1.8 Miscellaneous Medication (Phos-Nak) 2 pkt PO TIDPRN PRN PRN Reason: FOR PHOS LEVEL 0.5 - 1.0 Miscellaneous Medication (Pharmacy To Dose) 1 each IVPB PRN PRN PRN Reason: EMPIRIC Ccu Electrolyte (Replacement Protocol) 0 each FS PRN PRN PRN Reason: FOR ELECTROLYTE REPLACEMENT Ondansetron HCl (Zofran Odt) 4 mg PO Q6H PRN PRN Reason: Nausea/Vomiting Ondansetron HCl (Zofran) 4 mg IVP Q6H PRN PRN Reason: Nausea/Vomiting Potassium Chloride (K-Dur) 40 meq PO ASDIR PRN PRN Reason: FOR SERUM K+ 2.5 - 3.5 Last Admin: 04/14/19 06:18 Dose: 40 meq Potassium Chloride (Klor-Con) 40 meq PER TUBE ASDIR PRN PRN Reason: FOR SERUM K+ 2.5-3.5 Last Admin: 04/13/19 06:33 Dose: 40 meq Thiamine HCl (Thiamine Hcl) 100 mg SLOW IVP Q24HR [facility] Last Admin: 04/13/19 18:06 Dose: 100 mg
[2019-04-14] MEDS ORDERED: Clopidogrel Bisulfate 75 MG TAB ONE (17:44)
[2019-04-14] MEDS ORDERED: Insulin Glargine 8 UNITS in Pre-Filled Syringe SC SCH (17:45)
[2019-04-14] MEDS: HumaLOG 300 UNITS/3 ML VIAL SC PRN ×2 (18:37→22:46)
[2019-04-14] MEDS: Thiamine HCl 200 MG/2 ML VIAL SLOW IVP SCH (18:39)
[2019-04-14] MEDS: Atorvastatin Calcium 40 MG TAB PO SCH (20:15)
[2019-04-14 22:24] LABS: Vancomycin, Trough 19.4 ug/mL
[2019-04-15] MEDS: Potassium Chloride 40 MEQ in Sodium Chloride 0.45% 1,000 ML IV SCH (01:02)
--- NOTE | 2019-04-15 01:07 | EKG ---
Test Reason : Blood Pressure : / mmHG Vent. Rate : 070 BPM Atrial Rate : 070 BPM P-R Int : 180 ms QRS Dur : 100 ms QT Int : 410 ms P-R-T Axes : 038 -30 063 degrees QTc Int : 442 ms Sinus rhythm with Premature atrial complexes Left axis deviation Minimal voltage criteria for LVH, may be normal variant Nonspecific T wave abnormality Abnormal ECG Confirmed by JAMES OLIVER ([id number]), multimedia editor KELVIN BORRERO ([id number]) on 04/15/2019 1:06:40 AM Referred By: Confirmed By:JAMES OLIVER
[2019-04-15] MEDS: Lorazepam 2 MG/ML VIAL SLOW IVP PRN (01:57)
[2019-04-15 05:01] LABS: Anion Gap 11 mmol/L (10-20); BUN (Urea Nitrogen) 7 mg/dL (8.4-25.7); Calc. Creatinine Clearance 69 mL/min (70-130); Carbon Dioxide 18 mmol/L (23-31); Chloride 114 mmol/L (98-107); Estimated GFR-MDRD 43; Glucose 303 mg/dL (83-110); Potassium 3.4 mmol/L (3.5-5.1); Sodium 140 mmol/L (136-145)
[2019-04-15] MEDS: Piperacillin/Tazobactam 3.375 GM in Sodium Chloride 0.9% 100 ML IVPB SCH ×2 (05:06→12:54)
[2019-04-15] MEDS: HumaLOG 300 UNITS/3 ML VIAL SC PRN ×3 (06:25→22:11)
[2019-04-15] MEDS: Enoxaparin Sodium 40 MG/0.4 ML SYRINGE SC SCH (08:07)
[2019-04-15] MEDS: Famotidine 20 MG TAB PO SCH ×2 (08:07→20:22)
[2019-04-15] MEDS: Aspirin Chewable 81 MG TAB PO SCH (08:07)
[2019-04-15] MEDS: Insulin Glargine 8 UNITS in Pre-Filled Syringe 1 EACH SC SCH (08:08)
[2019-04-15] MEDS ORDERED: Vancomycin HCl 1.75 GM in Sodium Chloride 0.9% 500 ML IVPB SCH (11:00)
[2019-04-15] MEDS ORDERED: HumaLOG 300 UNITS/3 ML VIAL SC SCH (12:45)
[2019-04-15] MEDS: hydrALAZINE 20 MG/ML VIAL SLOW IVP PRN (13:02)
[2019-04-15] MEDS ORDERED: Lorazepam 2 MG/ML VIAL SLOW IVP PRN (14:08)
--- NOTE | 2019-04-15 14:08 | PDOC.PN ---
- Subjective Encounter Start Date: 04/15/19 Encounter Start Time: 11:30 Subjective: pt up in bed appears a bit drowsy - Objective Resuscitation Status - Order Detail: 04/11/19 13:40 Resuscitation Status Routine Resuscitation Status: FULL: Full Resuscitation Vital Signs & Weight: Vital Signs (12 hours) Temp Pulse Resp BP BP Pulse Ox 04/15/19 13:02 68 194/106 H 04/15/19 08:00 162/81 H 99 04/15/19 07:26 98.0 F 79 20 162/81 H 97 04/15/19 04:00 98.4 F 83 18 160/87 H 160/87 H 96 Weight Admit Weight 237 lb 14.4 oz Weight 256 lb 8 oz Most Recent Monitor Data Heart Rate from ECG 82 NIBP 142/85 NIBP BP-Mean 104 Respiration from ECG 30 SpO2 99 I&O: 04/14/19 04/15/19 04/16/19 06:59 06:59 06:59 Intake Total 9320 7095 Output Total 5275 5400 Balance 4045 1695 Result Diagrams: 04/14/19 04:50 04/15/19 04:32 Additional Labs: Accuchecks 04/15/19 04/15/19 04/14/19 11:25 04:06 22:40 POC Glucose 331 H 260 H 333 H 04/14/19 04/14/19 04/14/19 19:11 15:52 11:19 POC Glucose 400 H 346 H 248 H Phys Exam - Physical Examination Neck: no nodes, no JVD, supple, full ROM Respiratory: no wheezing, no rales, no rhonchi, wheezing present, clear to auscultation bilateral Cardiovascular: RRR, no significant murmur, no rub, gallop, irregular Gastrointestinal: soft, non-tender, no distention, positive bowel sounds Dx/Plan (1) Acute metabolic encephalopathy Code(s): G93.41 - METABOLIC ENCEPHALOPATHY Status: Acute (2) Bacteremia Code(s): R78.81 - BACTEREMIA Status: Acute (3) Alcohol abuse Code(s): F10.10 - ALCOHOL ABUSE, UNCOMPLICATED Status: Acute (4) Hypokalemia Code(s): E87.6 - HYPOKALEMIA Status: Acute (5) Hypomagnesemia Code(s): E83.42 - HYPOMAGNESEMIA Status: Acute (6) Dehydration Code(s): E86.0 - DEHYDRATION Status: Acute (7) AURELIANO (acute kidney injury) Code(s): N17.9 - ACUTE KIDNEY FAILURE, UNSPECIFIED Status: Acute - Plan will get a cxr, pt was given ativan will change it -: will change abx to cipro -: pt's creatinine continues to worsen, will check bmp in am -: hubbard stop vanco. bladder scan * . Review of Systems - Review of Systems Respiratory: negative: Cough, Dry, Shortness of Breath, Hemoptysis, SOB with Excertion, Pleuritic Pain, Sputum, Wheezing Cardiovascular: negative: chest pain, palpitations, orthopnea, paroxysmal nocturnal dyspnea, edema, light headedness, other Gastrointestinal: negative: Nausea, Vomiting, Abdominal Pain, Diarrhea, Constipation, Melena, Hematochezia, Other - Medications/Allergies Allergies/Adverse Reactions: Allergies Allergy/AdvReac Type Severity Reaction Status Date / Time No Known Allergies Allergy Unverified 04/11/19 14:06 Medications: Current Medications Acetaminophen (Tylenol) 650 mg PO Q4H PRN PRN Reason: Headache/Fever/Mild Pain (1-3) Aspirin (Aspirin Chewable) 81 mg PO DAILY [facility] Last Admin: 04/15/19 08:07 Dose: 81 mg Atorvastatin Calcium (Lipitor) 40 mg PO HS [facility] Last Admin: 04/14/19 20:15 Dose: 40 mg Clonidine (Catapres) 0.1 mg PO Q4H PRN PRN Reason: SBP >= 180 Dextrose/Water (Dextrose 50%) 25 gm SLOW IVP PRN PRN PRN Reason: Hypoglycemia Enoxaparin Sodium (Lovenox) 40 mg SC 0900 [facility] Last Admin: 04/15/19 08:07 Dose: 40 mg Famotidine (Pepcid) 20 mg PO BID [facility] Last Admin: 04/15/19 08:07 Dose: 20 mg Glucagon (Glucagon) 1 mg IM PRN PRN PRN Reason: Hypoglycemia Hydralazine HCl (Apresoline) 10 mg SLOW IVP Q4H PRN PRN Reason: SBP > 180 and HR < 70 Last Admin: 04/15/19 13:02 Dose: 10 mg Insulin Glargine 8 units/ (Miscellaneous Medication) 0.08 mls @ 0 mls/[facility] Last Admin: 04/15/19 08:08 Dose: 0.08 mls Dextrose/Water (D5w) 1,000 mls @ 0 mls/hr IV .Q0M PRN PRN Reason: Hypoglycemia Insulin Glargine 8 units/ (Miscellaneous Medication) 0.08 mls @ 0 mls/hr SC HS [facility] Ciprofloxacin/Dextrose 400 mg/ (Device) 200 mls @ 200 mls/hr IVPB 1000,2200 [facility] Last Admin: 04/15/19 11:39 Dose: 200 mls Insulin Human Lispro (Humalog) 0 units SC .MODERATE SLIDING SC PRN; Protocol PRN Reason: MODERATE SLIDING SCALE Last Admin: 04/15/19 06:25 Dose: 8 unit Insulin Human Lispro (Humalog) 10 units SC NOW [facility] Stop: 04/15/19 14:45 Last Admin: 04/15/19 12:51 Dose: 10 units Insulin Human Lispro (Humalog) 5 units SC [facility] Lorazepam (Ativan) 1 mg SLOW IVP Q4H PRN PRN Reason: Anxiety/Agitation Last Admin: 04/15/19 01:57 Dose: 1 mg Miscellaneous Medication (Pharmacy To Dose) 1 each IVPB PRN PRN PRN Reason: EMPIRIC Ondansetron HCl (Zofran Odt) 4 mg PO Q6H PRN PRN Reason: Nausea/Vomiting Ondansetron HCl (Zofran) 4 mg IVP Q6H PRN PRN Reason: Nausea/Vomiting Thiamine HCl (Thiamine Hcl) 100 mg SLOW IVP Q24HR [facility] Last Admin: 04/14/19 18:39 Dose: 100 mg
--- NOTE | 2019-04-15 15:03 | CON ---
DATE OF CONSULTATION: 04/14/2019 REASON FOR CONSULTATION: Type 2 diabetes, health decline for the past few weeks before admission, altered mental status, fall, hyperglycemia, and bacteremia. HISTORY OF PRESENT ILLNESS: A 73-year-old with history of type 2 diabetes mellitus and hypertension who has experienced health decline for the past few weeks. He has developed confusional state and also noticed increased urinary frequency. Has noticed difficulty in holding back his urine and having some episodes of incontinence, increased thirst. No headaches. No visual symptoms, sore throat, odynophagia, or dysphagia. No dyspnea or chest pain. No abdominal pain. No diarrhea. No nausea, vomiting, or hematemesis. No hematochezia or melena. On arrival, he had evidence of diabetic ketoacidosis. CT of head showed no acute findings. Chest x-ray with vascular congestion. INITIAL LABORATORY DATA: White cell count 7.0, hemoglobin 13.8, and platelets 202 with 71% neutrophils. Arterial blood gas with pH 7.37, pCO2 is 33, and PO2 is 81. Chemistry with a sodium of 137, potassium 2.8, CO2 was 15, and glucose 441. BNP was 215. Urinalysis with protein of 100 and greater than 1000 glucose, and wbc 0 to 3. Beta hydroxybutyrate was 7.32. Alcohol less than 10. Initial impression was weakness, falls, hyperglycemia, possible ketoacidosis, delirium due to metabolic encephalopathy. Patient had a temp of 102 on arrival and was placed on antibiotic therapy broad spectrum. Two sets from admission positive for Staphylococcus hominis subspecies on this. Those were obtained about 10 minutes apart. Currently, Mr. Gray is awake. He knew he was in [facility], his name, the year, but he had some word-finding problems and he had some difficulty with recollection of events, slow speech during the interview. He had a Jordan catheter inserted on admission that is still in place and he denies headaches. REVIEW OF SYSTEMS: Other 10-point review of systems as above. PAST MEDICAL HISTORY: Including type 2 diabetes and hypertension. PAST SURGICAL HISTORY: Cholecystectomy and ingrown toe nail. ALLERGIES: NONE. SOCIAL HISTORY: , lives in a room. Drinks occasionally. Never smoker. FAMILY HISTORY: Noncontributory. CURRENT MEDS: 1. Tylenol. 2. Aspirin. 3. Lipitor. 4. Catapres. 5. Dextrose. 6. Lovenox. 7. Insulin. 8. Lorazepam. 9. Magnesium sulfate. 10. Zosyn. 11. Electrolytes. 12. Vancomycin. PHYSICAL EXAMINATION: VITAL SIGNS: After the initial temperature elevation, his temperature has been normal, blood pressure 160/70, hr 76, respirations 18, and O2 saturation 96. SKIN: Showed there is bruising in the right calf region. Other areas of bruising probably related to his fall. There is also an area of bruising in the right groin region. No lymphadenopathy. Patient has a peripheral IV access and Jordan catheter. HEENT: Ocular movements are conjugate. Sclerae are white. Pupils are equal. Oral cavity moist with quite a few teeth in place with no significant abnormality. NECK: Supple. No jugular vein distention. No carotid bruits. No thyromegaly. LUNGS: Symmetric. Clear breath sounds. HEART: S1, S2. Regular rate. No S3 or S4. ABDOMEN: Soft, nondistended, and nontender. No ascites. No bladder distention. RECTAL EXAM: Showed mildly enlarged prostate gland with normal consistency. No tenderness to palpation. EXTREMITIES: No joint inflammatory activity noted. Pulses 1+ in dorsalis pedis. No edema. Plantar response are flexor. No clonus. He is able to move all extremities. NEUROLOGIC: Cognitive function was abnormal since patient had difficulty with some elements of his speech difficulty with recollection of the events and had some confabulation. LABORATORY DATA: Followup; the white cell count went up to 12,000, down to 10; hemoglobin is up to 15; platelets 203; and neutrophil percentage went up briefly to 75, down to 66. Chemistry results: Sodium 143; potassium 2.8; chloride 117; carbon dioxide 16; creatinine 1.43, this is higher than what his previous creatinine had been. The microbiology has been discussed. IMAGING STUDIES: We have an echocardiogram with EF 55%. Severe mitral regurgitation. No vegetations noted. Patient had a wrist x-ray, no acute fracture. Chest x-ray with cardiomegaly and pulmonary venous congestion. The brain CT, no acute intracranial abnormality demonstrated. It does not appear there are any urine cultures that were submitted. ASSESSMENT: 1. Type 2 diabetes. 2. Hypertension. 3. Altered mental status. 4. Mild diabetic ketoacidosis. 5. Fever. 6. Transient neutrophilia. 7. Bacteremia with Staphylococcus hominis. DISCUSSION: The samples for the blood cultures were obtained from his external jugular vein and I doubt that those were properly obtained samples. He does not have IV access at the side and I am afraid that this sample was contaminated by skin organisms. It is more likely that his delirium is resulting from the metabolic process. He does have mild DKA, which seems like he is getting more and more volume depleted with increase in creatinine, he seems to be drinking frequently and we will have him on intensive insulin administration regimen to inessa the cycle of diabetic ketoacidosis. The question is if there is another precipitating factor, he did have fever on arrival and viral infection not yet disclosed process, will have to continue to be monitored for. Primary CADD MANAGER infection would be another concern and we may have to further evaluate this with spinal fluid evaluation to rule out some form of encephalitis if he continues to present with altered mental status. An intraabdominal inflammatory process or chest inflammatory process appears unlikely at this point in time. Job ID: [id number] MTDD
[2019-04-15] MEDS ORDERED: Amlodipine 10 MG TAB PO SCH (15:15)
[2019-04-15] MEDS ORDERED: Clopidogrel Bisulfate 75 MG TAB ONE (16:03)
--- NOTE | 2019-04-15 16:20 | RAD ---
RADIOGRAPH CHEST 1 VIEW: DATE: 04/15/2019 HISTORY: 73-year-old male with dyspnea FINDINGS: There is no airspace density, pulmonary edema, or pneumothorax. The lateral costophrenic angles are n ot effaced. IMPRESSION: No acute pulmonary findings.
[2019-04-15] MEDS: Thiamine HCl 200 MG/2 ML VIAL SLOW IVP SCH (17:40)
[2019-04-15] MEDS: HumaLOG 300 UNITS/3 ML VIAL SC SCH (17:42)
[2019-04-15] MEDS: Metoprolol Tartrate 25 MG TAB PO SCH (20:22)
[2019-04-15] MEDS: Heparin 5,000 UNITS/ML VIAL SC SCH (20:22)
[2019-04-15] MEDS: Atorvastatin Calcium 40 MG TAB PO SCH (20:22)
[2019-04-15] MEDS: glyBURIDE 5 MG TAB PO SCH (20:22)
[2019-04-15] MEDS ORDERED: Insulin Glargine 12 UNITS in Pre-Filled Syringe 1 EACH SC SCH (21:00)
[2019-04-15] MEDS ORDERED: Insulin Glargine 8 UNITS in Pre-Filled Syringe 1 EACH SC SCH (21:00)
[2019-04-16] MEDS: HumaLOG 300 UNITS/3 ML VIAL SC PRN ×2 (05:36→17:32)
[2019-04-16] MEDS: Acetaminophen 325 MG TAB PO PRN (06:46)
[2019-04-16 07:20] LABS: Anion Gap 14 mmol/L (10-20); BUN (Urea Nitrogen) 10 mg/dL (8.4-25.7); Calc. Creatinine Clearance 67 mL/min (70-130); Calcium 8.9 mg/dL (7.8-10.44); Carbon Dioxide 27 mmol/L (23-31); Chloride 104 mmol/L (98-107); Estimated GFR-MDRD 41; Glucose 303 mg/dL (83-110); Sodium 142 mmol/L (136-145)
[2019-04-16 07:24] LABS: Potassium 2.6 mmol/L (3.5-5.1)
[2019-04-16] MEDS ORDERED: Potassium Chloride 20 MEQ in Premix Bag 1 BAG IVPB SCH ×2 (08:00→18:30)
[2019-04-16] MEDS: Famotidine 20 MG TAB PO SCH ×2 (08:13→20:07)
[2019-04-16] MEDS: Potassium Chloride 20 MEQ TAB PO SCH ×3 (08:13→19:49)
[2019-04-16] MEDS: Clopidogrel Bisulfate 75 MG TAB PO SCH (08:13)
[2019-04-16] MEDS: glyBURIDE 5 MG TAB PO SCH ×2 (08:13→20:07)
[2019-04-16] MEDS: Amlodipine 10 MG TAB PO SCH (08:14)
[2019-04-16] MEDS: Metoprolol Tartrate 25 MG TAB PO SCH ×2 (08:14→20:07)
[2019-04-16] MEDS: HumaLOG 300 UNITS/3 ML VIAL SC SCH ×3 (08:14→16:44)
[2019-04-16] MEDS: Heparin 5,000 UNITS/ML VIAL SC SCH ×2 (08:15→20:08)
[2019-04-16] MEDS: Insulin Glargine 15 UNITS in Pre-Filled Syringe 1 EACH SC SCH (09:01)
--- NOTE | 2019-04-16 11:04 | ULT ---
Exam: Bilateral renal ultrasound complete: HISTORY: Acute kidney injury COMPARISON: None FINDINGS: Right kidney: 13.2 x 6.5 x 6.4 cm Left kidney: 13.8 x 7.1 x 5.8 cm 2.4 x 2.6 cm mid left renal cyst. No renal hydronephrosis. No evidence for abnormal perinephric process. No solid or cystic renal mass. Unremarkable appearing bladder. IMPRESSION: Prominent to minimally enlarged kidneys bilaterally without hydronephrosis or perinephric process. Left renal cyst.
--- NOTE | 2019-04-16 12:39 | PQF ---
CLINICAL DOCUMENTATION IMPROVEMENT CLARIFICATION FORM: ICD-10 Updated PLEASE DO AN ADDENDUM TO THE PROGRESS NOTE WITH ANY DOCUMENTATION UPDATES OR ADDITIONS AND CARRY THROUGH TO DC SUMMARY. THANK YOU. DATE: 04/16/2019 ATTN: Dr. Sotelo Please exercise your independent, professional judgment in responding to the clarification form. Clinical indicators are provided on the bottom of this form for your review Please check appropriate box(es): [ x] Sepsis due to Staphylococcus hominis. [ ] Sepsis due to other: [ ] Severe sepsis with acute organ dysfunction of: (Examples: encephalopathy, acute kidney failure, other) [ ] Localized infection without sepsis [ ] Other diagnosis [ ] Unable to determine In addition, please specify: Present on Admission (POA): [ x] Yes [ ] No [ ] Unable to determine For continuity of documentation, please document condition throughout progress notes and discharge summary. Thank You. CLINICAL INDICATORS - SIGNS / SYMPTOMS / LABS 04/12: (Burrell) White count 12,000 Blood culture gram-positive cocci. Metabolic encephalopathy, gram-positive sepsis 04/14 (Roman) Pt had temp of 102 on arrival Altered mental status Bacteremia with Staphylococcus hominis. PN 04/15: Bacteremia. Acute AURELIANO RISKS: H&P: Hx of DM and HTN. 73 yo who presents with generalized weakness and falls , elevated blood glucose and elevated anion gap. He is in diabetic ketoacidosis. Metabolic encephalopathy TREATMENT: MAR: Order 04/11-04/15: Zosyn 3.375 gm IV ID Consult. MAR: Order 04/15: Cipro 400mg IV Thank you, Cary (This form is maintained as a part of the permanent medical record) 2014 [employer]. All Rights Reserved Cary Sanford RN, BSN [email or web address] Office: [phone] [facility]
[2019-04-16 12:43] VITALS: BMI 32.9
--- NOTE | 2019-04-16 15:41 | PDOC.PN ---
- Subjective Encounter Start Date: 04/16/19 Encounter Start Time: 12:30 Subjective: pt up in bed no complains - Objective Resuscitation Status - Order Detail: 04/11/19 13:40 Resuscitation Status Routine Resuscitation Status: FULL: Full Resuscitation Vital Signs & Weight: Vital Signs (12 hours) Temp Pulse Resp BP BP Pulse Ox 04/16/19 12:11 188/74 H 04/16/19 12:00 76 180/74 H 04/16/19 08:14 63 156/84 H 04/16/19 08:00 97.6 F 69 18 155/79 H 98 04/16/19 04:00 97.7 F 63 16 156/84 H 156/84 H 98 Weight Admit Weight 237 lb 14.4 oz Weight 256 lb 8 oz Most Recent Monitor Data Heart Rate from ECG 82 NIBP 142/85 NIBP BP-Mean 104 Respiration from ECG 30 SpO2 99 I&O: 04/15/19 04/16/19 04/17/19 06:59 06:59 06:59 Intake Total 7095 4710 700 Output Total 5400 9050 Balance 1695 -4340 700 Result Diagrams: 04/14/19 04:50 04/16/19 06:08 Additional Labs: Accuchecks 04/16/19 04/16/19 04/15/19 11:30 04:19 19:18 POC Glucose 304 H 311 H 383 H 04/15/19 16:48 POC Glucose 450 H Phys Exam - Physical Examination Neck: no nodes, no JVD, supple, full ROM Respiratory: no wheezing, no rales, no rhonchi, wheezing present, clear to auscultation bilateral Cardiovascular: RRR, no significant murmur, no rub, gallop, irregular Gastrointestinal: soft, non-tender, no distention, positive bowel sounds Musculoskeletal: no edema, pulses present, edema present Dx/Plan (1) Acute metabolic encephalopathy Code(s): G93.41 - METABOLIC ENCEPHALOPATHY Status: Acute (2) Bacteremia Code(s): R78.81 - BACTEREMIA Status: Acute (3) Alcohol abuse Code(s): F10.10 - ALCOHOL ABUSE, UNCOMPLICATED Status: Acute (4) Hypokalemia Code(s): E87.6 - HYPOKALEMIA Status: Acute (5) Hypomagnesemia Code(s): E83.42 - HYPOMAGNESEMIA Status: Acute (6) Dehydration Code(s): E86.0 - DEHYDRATION Status: Acute (7) AURELIANO (acute kidney injury) Code(s): N17.9 - ACUTE KIDNEY FAILURE, UNSPECIFIED Status: Acute - Plan will get nephrology for worsening aureliano -: will continue cipro -: will increase his lantus, will replace k * . Review of Systems - Review of Systems Respiratory: negative: Cough, Dry, Shortness of Breath, Hemoptysis, SOB with Excertion, Pleuritic Pain, Sputum, Wheezing Cardiovascular: negative: chest pain, palpitations, orthopnea, paroxysmal nocturnal dyspnea, edema, light headedness, other - Medications/Allergies Allergies/Adverse Reactions: Allergies Allergy/AdvReac Type Severity Reaction Status Date / Time No Known Allergies Allergy Unverified 04/11/19 14:06 Medications: Current Medications Acetaminophen (Tylenol) 650 mg PO Q4H PRN PRN Reason: Headache/Fever/Mild Pain (1-3) Last Admin: 04/16/19 06:46 Dose: 650 mg Amlodipine Besylate (Norvasc) 10 mg PO DAILY [facility] Last Admin: 04/16/19 08:14 Dose: 10 mg Atorvastatin Calcium (Lipitor) 40 mg PO HS [facility] Last Admin: 04/15/19 20:22 Dose: 40 mg Atorvastatin Calcium (Lipitor) 20 mg PO HS [facility] Bupropion HCl (Wellbutrin Xl) 150 mg PO DAILY [facility] Clonidine (Catapres) 0.1 mg PO Q4H PRN PRN Reason: SBP >= 180 Last Admin: 04/16/19 12:11 Dose: 0.1 mg Clopidogrel Bisulfate (Plavix) 75 mg PO DAILY [facility] Last Admin: 04/16/19 08:13 Dose: 75 mg Dextrose/Water (Dextrose 50%) 25 gm SLOW IVP PRN PRN PRN Reason: Hypoglycemia Diltiazem HCl (Cardizem Cd) 120 mg PO DAILY [facility] Last Admin: 04/16/19 08:14 Dose: 120 mg Famotidine (Pepcid) 20 mg PO BID [facility] Last Admin: 04/16/19 08:13 Dose: 20 mg Glucagon (Glucagon) 1 mg IM PRN PRN PRN Reason: Hypoglycemia Glyburide (Diabeta) 5 mg PO BID [facility] Last Admin: 04/16/19 08:13 Dose: 5 mg Heparin Sodium (Porcine) (Heparin) 5,000 units SC BID [facility] Last Admin: 04/16/19 08:15 Dose: 5,000 units Hydralazine HCl (Apresoline) 10 mg SLOW IVP Q4H PRN PRN Reason: SBP > 180 and HR < 70 Last Admin: 04/15/19 13:02 Dose: 10 mg Hydralazine HCl (Apresoline) 25 mg PO TID [facility] Dextrose/Water (D5w) 1,000 mls @ 0 mls/hr IV .Q0M PRN PRN Reason: Hypoglycemia Ciprofloxacin/Dextrose 400 mg/ (Device) 200 mls @ 200 mls/hr IVPB 1000,2200 [facility] Last Admin: 04/16/19 08:17 Dose: 200 mls Insulin Glargine 12 units/ (Miscellaneous Medication) 0.12 mls @ 0 mls/hr SC HS [facility] Last Admin: 04/15/19 20:23 Dose: 0.12 mls Insulin Glargine 15 units/ (Miscellaneous Medication) 0.15 mls @ 0 mls/hr SC QAM [facility] Last Admin: 04/16/19 09:01 Dose: 0.15 mls Insulin Human Lispro (Humalog) 0 units SC .MODERATE SLIDING SC PRN; Protocol PRN Reason: MODERATE SLIDING SCALE Last Admin: 04/16/19 05:36 Dose: 8 unit Insulin Human Lispro (Humalog) 5 units SC AC [facility] Last Admin: 04/16/19 12:12 Dose: 5 units Lorazepam (Ativan) 1 mg SLOW IVP Q8H PRN PRN Reason: Alcohol Withdrawal Metoprolol Tartrate (Lopressor) 25 mg PO BID [facility] Last Admin: 04/16/19 08:14 Dose: 25 mg Ondansetron HCl (Zofran Odt) 4 mg PO Q6H PRN PRN Reason: Nausea/Vomiting Ondansetron HCl (Zofran) 4 mg IVP Q6H PRN PRN Reason: Nausea/Vomiting Potassium Chloride (K-Dur) 40 meq PO BID-[facility] Stop: 04/16/19 17:01 Last Admin: 04/16/19 08:13 Dose: 40 meq Sodium Chloride (Flush - Normal Saline) 10 ml IVF Q12HR [facility] Last Admin: 04/16/19 08:16 Dose: 10 ml Sodium Chloride (Flush - Normal Saline) 10 ml IVF PRN PRN PRN Reason: Saline Flush Tamsulosin HCl (Flomax) 0.4 mg PO DAILY [facility] Thiamine HCl (Thiamine Hcl) 100 mg SLOW IVP Q24HR [facility] Last Admin: 04/15/19 17:40 Dose: 100 mg
[2019-04-16] MEDS: Sodium Chloride 0.9% 1,000 ML IV SCH (16:40)
[2019-04-16] MEDS: Thiamine HCl 200 MG/2 ML VIAL SLOW IVP SCH (16:45)
[2019-04-16 16:47] LABS: Anion Gap 14 mmol/L (10-20); BUN (Urea Nitrogen) 11 mg/dL (8.4-25.7); Calc. Creatinine Clearance 68 mL/min (70-130); Calcium 8.5 mg/dL (7.8-10.44); Carbon Dioxide 24 mmol/L (23-31); Chloride 103 mmol/L (98-107); Estimated GFR-MDRD 42; Glucose 365 mg/dL (83-110); Magnesium 1.3 mg/dL (1.6-2.6); Sodium 138 mmol/L (136-145)
[2019-04-16 16:52] LABS: Potassium 2.7 mmol/L (3.5-5.1)
--- NOTE | 2019-04-16 17:32 | PRG ---
DATE OF SERVICE: 04/16/2019 HISTORY OF PRESENT ILLNESS: Mr. Gray is still confused. He could not use the cell phone, did not know how to operate it. He confused the student for his daughter and he did not know where he was. He did not have any headaches. No visual symptoms. No visual hallucinations. No shortness of breath or chest pain. No abdominal pain. OBJECTIVE: VITAL SIGNS: His temperature max was 98.0, BP 180/74, pulse 76, and O2 saturation 98%. GENERAL: He does not appear in distress, but he has sort of a dazed look in his face and sometimes with inappropriate humor. HEENT: Sclerae white. Pupils are equal. LUNGS: Symmetric air entry. S1 and S2. Regular rate. ABDOMEN: Soft. No asterixis. No bladder distention. LABORATORY DATA: White cell count 10,000, hemoglobin 15, platelets 203. Sodium 138 creatinine 1.64. ASSESSMENT AND DISCUSSION: Type 2 diabetes, delirium/altered mental status, mild diabetic ketoacidosis, fever, transient neutrophilia. Bacteremia. DISCUSSION: The patient still with inadequate resolution of the delirium. Dr. Sotelo has already ordered an MRI without contrast. We will add a CSF evaluation to the MRI order, rule out West Nile herpes simplex encephalitis. Check RPR. Check ammonium level. Urinary tract infection is not likely in view of his normal urinalysis. Job ID: [id number]
[2019-04-16] MEDS ORDERED: Potassium Chloride 20 MEQ TAB PO SCH ×2 (18:30→21:00)
[2019-04-16] MEDS ORDERED: Magnesium 2 GM/50 ML 2 GM in Premix Bag 1 BAG IVPB SCH (18:30)
[2019-04-16] MEDS: Potassium Chloride 20 MEQ in Premix Bag 1 BAG IVPB SCH ×2 (18:35→22:19)
[2019-04-16] MEDS: hydrALAZINE 25 MG TAB PO SCH (20:07)
[2019-04-16] MEDS: Atorvastatin Calcium 20 MG TAB PO SCH (20:07)
[2019-04-16 20:17] LABS: Syphilis Antibody Nonreactive (Nonreactive); Syphilis Antibody Index 0.04 S/CO (<1.00 Non-Reactive)
[2019-04-16] MEDS: Insulin Glargine 18 UNITS in Pre-Filled Syringe 1 EACH SC SCH (20:56)
[2019-04-16] MEDS ORDERED: Insulin Glargine 8 UNITS in Pre-Filled Syringe 1 EACH SC SCH (21:00)
--- NOTE | 2019-04-17 04:50 | CON ---
DATE OF CONSULTATION: 04/16/2019 CONSULTING PHYSICIAN: Lisa Sotelo MD REASON FOR CONSULTATION: Acute kidney injury. REASON FOR ADMISSION: Fall. HISTORY OF PRESENT ILLNESS: This is a 73-year-old male with history of type 2 diabetes, hypertension, came to the hospital after a fall and was found to have elevated creatinine. Creatinine was running 1.6 from his baseline of 0.9. The patient has been having No chest pain or palpitation reported. PAST MEDICAL HISTORY: Positive for type 2 diabetes and hypertension. PAST SURGICAL HISTORY: Cholecystectomy and nail surgery. HOME MEDICATIONS: Include, 1. Dyazide. 2. Fluoxetine. 3. Simvastatin. 4. Tamsulosin. 5. Amlodipine. 6. Wellbutrin. 7. Glucophage. 8. Benicar. 9. Plavix. 10. Cardizem. 11. Glyburide. 12. Levemir. ALLERGIES: NO KNOWN DRUG ALLERGIES. SOCIAL HISTORY: He is a nonsmoker. Occasional drinking. He has two kids. FAMILY HISTORY: No history of kidney disease. REVIEW OF SYSTEMS: CONSTITUTIONAL: Negative for weight loss or gain, ability to conduct usual activities. SKIN: Negative for rash, itching. EYES: Negative for double vision, pain. ENT/MOUTH: Negative for nose bleeding, neck stiffness, pain, tenderness. CARDIOVASCULAR: Negative for palpitations, dyspnea on exertion, orthopnea. RESPIRATORY: Negative for shortness of breath, wheezing, cough, hemoptysis, fever or night sweats. GASTROINTESTINAL: Negative for poor appetite, abdominal pain, heartburn, nausea, vomiting, constipation, or diarrhea. GENITOURINARY: Negative for urgency, frequency, dysuria, nocturia. MUSCULOSKELETAL: Negative for pain, swelling. NEUROLOGIC/PSYCHIATRIC: Negative for anxiety, depression. ALLERGY/IMMUNOLOGIC: Negative for skin rash, bleeding tendency. Rest all negative. PHYSICAL EXAMINATION: GENERAL: This is a well-built male, in no apparent distress. VITAL SIGNS: Temperature 98.3, pulse 78, respiratory rate 18, and blood pressure 135/79. HEENT: Atraumatic, normocephalic. Oral mucosa is moist. NECK: Supple. CVS: S1, S2 heard. Rate and rhythm regular. RESPIRATORY: Clear to auscultation. GASTROINTESTINAL: Abdomen is soft. MUSCULOSKELETAL: 1+ edema. DERMATOLOGIC: No skin rash. NEUROLOGIC: Alert and awake. PSYCHIATRIC: Normal mood and affect. LABORATORY DATA: Potassium is 2.7, BUN is 11, creatinine is 1.6, and glucose is 330. ASSESSMENT AND PLAN: 1. Acute kidney injury, most likely from diuresis. 2. Polyuria, most likely from hyperglycemia. We will start on IV fluids and monitor. 3. Hypokalemia. Replace and monitor. 4. . 5. Edema, controlled. 6. Anemia. 7. Hyperglycemia, recommend good control. 8. Most likely the patient is having polyuria from hyperglycemia. Osmotic diuresis. Plan is to start IV fluids and monitor. We will check urine studies including urine osmolalities and serum osmolality. We will follow. Thank you for the consult, avoid nephrotoxins. Job ID: [id number]
[2019-04-17] MEDS: HumaLOG 300 UNITS/3 ML VIAL SC PRN (05:33)
[2019-04-17] MEDS: Sodium Chloride 0.9% 1,000 ML IV SCH ×2 (05:38→20:50)
[2019-04-17 06:53] LABS: #Basophils 0.1 thou/uL (0.0-0.2); #Eosinphils 0.2 thou/uL (0.0-0.7); #Lymphocytes 1.8 thou/uL (1.20-3.40); #Monocytes 0.8 thou/uL (0.11-0.59); #Neutrophils 6.9 thou/uL (1.40-6.50); %Basophils 0.5 % (0.0-1.0); %Eosinophils 2.1 % (0.0-10.0); %Lymphocytes 18.7 % (21.0-51.0); %Monocytes 7.9 % (0.0-10.0); %Neutrophils 70.8 % (42.0-75.0); Hemoglobin 13.3 g/dL (14.0-18.0); Mean Corpuscular HGB CONC 33.3 g/dL (32.0-36.0); Mean Corpuscular Hemoglobin 32.8 pg (27.0-31.0); Mean Corpuscular Volume 98.4 fL (78.0-98.0); Mean Platelet Volume 7.3 fL (7.4-10.4); Platelet Count 260 thou/uL (130-400); RBC Distribution Width 14.2 % (11.5-14.5); Red Blood Cell (RBC) Count 4.06 mill/uL (4.70-6.10); White Blood Cell (WBC) Count 9.7 thou/uL (4.8-10.8)
[2019-04-17 07:14] LABS: Anion Gap 12 mmol/L (10-20); BUN (Urea Nitrogen) 14 mg/dL (8.4-25.7); Calc. Creatinine Clearance 65 mL/min (70-130); Calcium 8.5 mg/dL (7.8-10.44); Carbon Dioxide 27 mmol/L (23-31); Chloride 103 mmol/L (98-107); Estimated GFR-MDRD 39; Glucose 308 mg/dL (83-110); Hemoglobin A1c 9.6 % (4.0-6.0); Magnesium 1.8 mg/dL (1.6-2.6); Sodium 139 mmol/L (136-145)
[2019-04-17] MEDS: Metoprolol Tartrate 25 MG TAB PO SCH ×2 (08:27→20:34)
[2019-04-17] MEDS: Clopidogrel Bisulfate 75 MG TAB PO SCH (08:27)
[2019-04-17] MEDS: glyBURIDE 5 MG TAB PO SCH ×2 (08:27→20:35)
[2019-04-17] MEDS: hydrALAZINE 25 MG TAB PO SCH ×3 (08:27→20:35)
[2019-04-17] MEDS: Tamsulosin HCl 0.4 MG CAP PO SCH (08:27)
[2019-04-17] MEDS: Famotidine 20 MG TAB PO SCH ×2 (08:27→20:34)
[2019-04-17] MEDS: Amlodipine 10 MG TAB PO SCH (08:27)
[2019-04-17] MEDS: Bupropion 150 MG XL TAB PO SCH (08:28)
[2019-04-17] MEDS: Potassium Chloride 20 MEQ TAB PO SCH ×2 (08:29→17:44)
[2019-04-17] MEDS: HumaLOG 300 UNITS/3 ML VIAL SC SCH ×3 (08:29→17:17)
[2019-04-17] MEDS: Insulin Glargine 15 UNITS in Pre-Filled Syringe 1 EACH SC SCH (08:30)
[2019-04-17] MEDS: Heparin 5,000 UNITS/ML VIAL SC SCH ×2 (08:30→20:34)
[2019-04-17] MEDS ORDERED: Nystatin Powder 15 GM BOT TOP PRN (11:31)
[2019-04-17 11:50] LABS: CSF, Glucose 164 mg/dl (40-70); CSF, Protein 67 mg/dL (15-40)
[2019-04-17 11:57] LABS: CSF Source CSF; Clarity Clear (Clear); RBC Count - Manual 0 /cumm (None Seen); Tube # 4; WBC/NonHematics Count - Manual 1 /cumm (0-5)
--- NOTE | 2019-04-17 12:33 | RAD ---
LUMBAR PUNCTURE: HISTORY: Fever. Altered mental status. COMPARISON: None. FINDINGS: Successful fluoroscopic guided lumbar puncture. A total of 9 cc of clear CSF was collected. TECHNIQUE: Consent was obtained to perform a lumbar puncture. The L3-L4 level was deemed appropriate. Lidocain e 1%, buffered with sodium bicarbonate, was used for local anesthesia. Under fluoroscopic guidance, a 22-gauge spinal needle was advanced into the CSF space. Via a short tubing catheter, a t otal of 9 cc of clear CSF was collected. No immediate or postprocedure complications. IMPRESSION: Successful lumbar puncture with fluoroscopic guidance. Transcribed Date/Time: 04/17/2019 12:40 PM
--- NOTE | 2019-04-17 14:34 | PRG ---
DATE OF SERVICE: 04/17/2019 SUBJECTIVE: Patient was seen and examined at bedside and overnight events noted. Patient denies any shortness of breath or chest pain or palpitation. No history of nausea or vomiting or diarrhea or fever or chills or cramps. OBJECTIVE: GENERAL: This is a well-built male, in no apparent distress. VITAL SIGNS: Temperature 97.8. Pulse 81. Respiratory rate 18. Blood pressure 155/81. HEENT: Atraumatic, normocephalic. Oral mucosa is moist NECK: Supple. CARDIOVASCULAR: S1, S2 heard. Rate and rhythm regular. RESPIRATORY: Clear to auscultation. GASTROINTESTINAL: Abdomen is soft. MUSCULOSKELETAL: No tenderness. No edema. DERMATOLOGIC: No skin rash. NEUROLOGIC: Alert and awake and oriented X3. No focal neurologic deficits. Moving all the extremities. PSYCHIATRIC: Mood and affect normal. LABORATORY DATA: Potassium is 3.0, BUN is 14, and creatinine is 1.7. ASSESSMENT AND PLAN: 1. Acute kidney injury, most likely from osmotic diuresis. Continue IV fluids and continue glycemic control. 2. Polyuria, most likely from osmotic diuresis. 3. Hypokalemia. Replace and monitor. 4. Hypomagnesemia. 5. Edema. 6. History of anemia. 7. If the patient's renal function continues to get worse, replace potassium cautiously, and we will monitor. Avoid nephrotoxic. Job ID: [id number]
--- NOTE | 2019-04-17 15:54 | PDOC.PN ---
- Subjective Encounter Start Date: 04/17/19 Encounter Start Time: 11:30 Subjective: pt up in bed no complains - Objective Resuscitation Status - Order Detail: 04/11/19 13:40 Resuscitation Status Routine Resuscitation Status: FULL: Full Resuscitation Vital Signs & Weight: Vital Signs (12 hours) Temp Pulse Resp BP Pulse Ox 04/17/19 15:10 74 04/17/19 12:39 97.8 F 81 18 155/81 H 94 L 04/17/19 08:28 68 04/17/19 08:27 68 04/17/19 08:00 98 04/17/19 07:33 98.7 F 68 16 109/71 98 04/17/19 04:07 97.8 F 59 L 16 138/63 96 Weight Admit Weight 237 lb 14.4 oz Weight 256 lb 8 oz Most Recent Monitor Data Heart Rate from ECG 82 NIBP 142/85 NIBP BP-Mean 104 Respiration from ECG 30 SpO2 99 I&O: 04/16/19 04/17/19 04/18/19 06:59 06:59 06:59 Intake Total 4710 5115 880 Output Total 9050 3000 Balance -4340 2115 880 Result Diagrams: 04/17/19 06:18 04/17/19 06:18 Additional Labs: Accuchecks 04/17/19 04/17/19 04/16/19 11:55 04:11 19:13 POC Glucose 337 H 319 H 250 H 04/16/19 16:16 POC Glucose 330 H Phys Exam - Physical Examination Neck: no nodes, no JVD, supple, full ROM Respiratory: no wheezing, no rales, no rhonchi, wheezing present, clear to auscultation bilateral Cardiovascular: RRR, no significant murmur, no rub, gallop, irregular Gastrointestinal: soft, non-tender, no distention, positive bowel sounds Dx/Plan (1) Acute metabolic encephalopathy Code(s): G93.41 - METABOLIC ENCEPHALOPATHY Status: Acute (2) Bacteremia Code(s): R78.81 - BACTEREMIA Status: Acute (3) Alcohol abuse Code(s): F10.10 - ALCOHOL ABUSE, UNCOMPLICATED Status: Acute (4) Hypokalemia Code(s): E87.6 - HYPOKALEMIA Status: Acute (5) Hypomagnesemia Code(s): E83.42 - HYPOMAGNESEMIA Status: Acute (6) Dehydration Code(s): E86.0 - DEHYDRATION Status: Acute (7) AURELIANO (acute kidney injury) Code(s): N17.9 - ACUTE KIDNEY FAILURE, UNSPECIFIED Status: Acute - Plan s/p lp, wosening renal function. will increase his lantus and -: humalog. He may need rehab. will get MRi brain * . Review of Systems - Review of Systems Respiratory: negative: Cough, Dry, Shortness of Breath, Hemoptysis, SOB with Excertion, Pleuritic Pain, Sputum, Wheezing Cardiovascular: negative: chest pain, palpitations, orthopnea, paroxysmal nocturnal dyspnea, edema, light headedness, other Gastrointestinal: negative: Nausea, Vomiting, Abdominal Pain, Diarrhea, Constipation, Melena, Hematochezia, Other - Medications/Allergies Allergies/Adverse Reactions: Allergies Allergy/AdvReac Type Severity Reaction Status Date / Time No Known Allergies Allergy Unverified 04/11/19 14:06 Medications: Current Medications Acetaminophen (Tylenol) 650 mg PO Q4H PRN PRN Reason: Headache/Fever/Mild Pain (1-3) Last Admin: 04/16/19 06:46 Dose: 650 mg Amlodipine Besylate (Norvasc) 10 mg PO DAILY [facility] Last Admin: 04/17/19 08:27 Dose: 10 mg Atorvastatin Calcium (Lipitor) 20 mg PO HS [facility] Last Admin: 04/16/19 20:07 Dose: 20 mg Bupropion HCl (Wellbutrin Xl) 150 mg PO DAILY [facility] Last Admin: 04/17/19 08:28 Dose: 150 mg Clonidine (Catapres) 0.1 mg PO Q4H PRN PRN Reason: SBP >= 180 Last Admin: 04/16/19 12:11 Dose: 0.1 mg Clopidogrel Bisulfate (Plavix) 75 mg PO DAILY [facility] Last Admin: 04/17/19 08:27 Dose: 75 mg Dextrose/Water (Dextrose 50%) 25 gm SLOW IVP PRN PRN PRN Reason: Hypoglycemia Diltiazem HCl (Cardizem Cd) 120 mg PO DAILY [facility] Last Admin: 04/17/19 08:28 Dose: 120 mg Famotidine (Pepcid) 20 mg PO BID [facility] Last Admin: 04/17/19 08:27 Dose: 20 mg Glucagon (Glucagon) 1 mg IM PRN PRN PRN Reason: Hypoglycemia Glyburide (Diabeta) 5 mg PO BID [facility] Last Admin: 04/17/19 08:27 Dose: 5 mg Heparin Sodium (Porcine) (Heparin) 5,000 units SC BID [facility] Last Admin: 04/17/19 08:30 Dose: Not Given Hydralazine HCl (Apresoline) 10 mg SLOW IVP Q4H PRN PRN Reason: SBP > 180 and HR < 70 Last Admin: 04/15/19 13:02 Dose: 10 mg Hydralazine HCl (Apresoline) 25 mg PO TID [facility] Last Admin: 04/17/19 15:10 Dose: 25 mg Dextrose/Water (D5w) 1,000 mls @ 0 mls/hr IV .Q0M PRN PRN Reason: Hypoglycemia Insulin Glargine 15 units/ (Miscellaneous Medication) 0.15 mls @ 0 mls/hr SC QAM [facility] Last Admin: 04/17/19 08:30 Dose: 0.15 mls Sodium Chloride (Normal Saline 0.9%) 1,000 mls @ 75 mls/hr IV .[id number] [facility] Last Admin: 04/17/19 05:38 Dose: Not Given Insulin Glargine 18 units/ (Miscellaneous Medication) 0.18 mls @ 0 mls/hr SC HS [facility] Last Admin: 04/16/19 20:56 Dose: 0.18 mls Insulin Human Lispro (Humalog) 0 units SC .MODERATE SLIDING SC PRN; Protocol PRN Reason: MODERATE SLIDING SCALE Last Admin: 04/17/19 05:33 Dose: 8 unit Insulin Human Lispro (Humalog) 8 units SC AC [facility] Last Admin: 04/17/19 11:59 Dose: 8 unit Lorazepam (Ativan) 1 mg SLOW IVP Q8H PRN PRN Reason: Alcohol Withdrawal Metoprolol Tartrate (Lopressor) 25 mg PO BID [facility] Last Admin: 04/17/19 08:27 Dose: 25 mg Nystatin (Mycostatin Powder) 0 gm TOP QD PRN PRN Reason: Rash/Topical Irritation Ondansetron HCl (Zofran Odt) 4 mg PO Q6H PRN PRN Reason: Nausea/Vomiting Ondansetron HCl (Zofran) 4 mg IVP Q6H PRN PRN Reason: Nausea/Vomiting Potassium Chloride (K-Dur) 40 meq PO BID-[facility] Sodium Chloride (Flush - Normal Saline) 10 ml IVF Q12HR [facility] Last Admin: 04/17/19 08:30 Dose: Not Given Sodium Chloride (Flush - Normal Saline) 10 ml IVF PRN PRN PRN Reason: Saline Flush Tamsulosin HCl (Flomax) 0.4 mg PO DAILY [facility] Last Admin: 04/17/19 08:27 Dose: 0.4 mg Thiamine HCl (Thiamine Hcl) 100 mg SLOW IVP Q24HR [facility] Last Admin: 04/16/19 16:45 Dose: 100 mg
--- NOTE | 2019-04-17 16:44 | MRI ---
MRI OF THE BRAIN WITHOUT CONTRAST: 04/17/19 HISTORY: Altered mental status. COMPARISON: None. FINDINGS: Limited evaluation due to motion degradation on multiple sequences. No hemorrhage on the axial gradi ent sequence. The calvarium has an appropriate T1 marrow signal intensity. Midline brain parenchymal structures are unremarkable. Central arterial flow voids are maintained. Absent restricted diffusion. T2 and FLAIR white matter hyperintensity due to chronic small vessel ischemic change. Mild mucosa thi ckening of the paranasal sinuses. IMPRESSION: 1. Absent restricted diffusion. No acute infarct. 2. Minimal chronic small vessel ischemic change of the white matter. POS: TERESITA
[2019-04-17] MEDS: Thiamine HCl 200 MG/2 ML VIAL SLOW IVP SCH (17:17)
[2019-04-17] MEDS: Atorvastatin Calcium 20 MG TAB PO SCH (20:34)
[2019-04-17] MEDS: Insulin Glargine 18 UNITS in Pre-Filled Syringe 1 EACH SC SCH (20:35)
[2019-04-18] MEDS: Acetaminophen 325 MG TAB PO PRN (01:03)
[2019-04-18] MEDS: HumaLOG 300 UNITS/3 ML VIAL SC PRN ×3 (05:44→17:12)
[2019-04-18 07:19] LABS: Anion Gap 14 mmol/L (10-20); BUN (Urea Nitrogen) 12 mg/dL (8.4-25.7); Calc. Creatinine Clearance 72 mL/min (70-130); Calcium 8.9 mg/dL (7.8-10.44); Carbon Dioxide 25 mmol/L (23-31); Chloride 104 mmol/L (98-107); Estimated GFR-MDRD 44; Glucose 277 mg/dL (83-110); Potassium 3.7 mmol/L (3.5-5.1); Sodium 139 mmol/L (136-145)
[2019-04-18] MEDS: hydrALAZINE 25 MG TAB PO SCH ×3 (08:51→20:24)
[2019-04-18] MEDS: glyBURIDE 5 MG TAB PO SCH ×2 (08:51→20:23)
[2019-04-18] MEDS: Clopidogrel Bisulfate 75 MG TAB PO SCH (08:51)
[2019-04-18] MEDS: Bupropion 150 MG XL TAB PO SCH (08:51)
[2019-04-18] MEDS: Amlodipine 10 MG TAB PO SCH (08:51)
[2019-04-18] MEDS: Heparin 5,000 UNITS/ML VIAL SC SCH ×2 (08:51→20:23)
[2019-04-18] MEDS: Sodium Chloride 0.9% 1,000 ML IV SCH ×2 (08:52→21:38)
[2019-04-18] MEDS: Tamsulosin HCl 0.4 MG CAP PO SCH (08:52)
[2019-04-18] MEDS: Metoprolol Tartrate 25 MG TAB PO SCH ×2 (08:52→20:24)
[2019-04-18] MEDS: Insulin Glargine 15 UNITS in Pre-Filled Syringe 1 EACH SC SCH (08:52)
[2019-04-18] MEDS: Famotidine 20 MG TAB PO SCH ×2 (08:52→20:23)
[2019-04-18] MEDS: HumaLOG 300 UNITS/3 ML VIAL SC SCH ×3 (08:52→17:12)
[2019-04-18] MEDS: Potassium Chloride 20 MEQ TAB PO SCH ×2 (11:58→17:07)
--- NOTE | 2019-04-18 12:01 | PRG ---
DATE OF SERVICE: 04/18/2019 SUBJECTIVE: Patient was seen and examined at bedside and overnight events noted. Patient denies any shortness of breath or chest pain or palpitation. No history of nausea or vomiting or diarrhea or fever or chills or cramps. OBJECTIVE: GENERAL: This is a well-built male, in no apparent distress. VITAL SIGNS: Temperature 97.9, pulse 62, respiratory rate . HEENT: Atraumatic, normocephalic. Oral mucosa is moist NECK: Supple. CARDIOVASCULAR: S1, S2 heard. Rate and rhythm regular. RESPIRATORY: Clear to auscultation. GASTROINTESTINAL: Abdomen is soft. MUSCULOSKELETAL: No tenderness. No edema. DERMATOLOGIC: No skin rash. NEUROLOGIC: Alert and awake and oriented X3. No focal neurologic deficits. Moving all the extremities. PSYCHIATRIC: Mood and affect normal. LABORATORY DATA: Potassium is 3.7, BUN is 12, creatinine is 1.5. ASSESSMENT AND PLAN: 1. Acute kidney injury. Creatinine is better. 2. Hyperglycemia, need a tight glycemia control. 3. Polyuria. 4. Hypomagnesemia. 5. Edema, controlled. 6. History of anemia. 7. Overall labs are stable. We will follow. Continue IV fluids for one more day and need tight glycemic control. Job ID: [id number]
--- NOTE | 2019-04-18 13:21 | PDOC.PN ---
- Subjective Encounter Start Date: 04/18/19 Encounter Start Time: 10:15 Subjective: pt up in bed no complains, pt has some hematuria in his contreras - Objective Resuscitation Status - Order Detail: 04/11/19 13:40 Resuscitation Status Routine Resuscitation Status: FULL: Full Resuscitation Vital Signs & Weight: Vital Signs (12 hours) Temp Pulse Resp BP BP Pulse Ox 04/18/19 12:00 151/83 H 04/18/19 10:51 97.9 F 65 20 151/83 H 94 L 04/18/19 08:51 70 127/58 L 04/18/19 08:00 127/58 L 04/18/19 07:35 97.7 F 70 20 127/58 L 96 04/18/19 04:00 97.6 F 64 16 138/62 96 Weight Admit Weight 237 lb 14.4 oz Weight 256 lb 8 oz Most Recent Monitor Data Heart Rate from ECG 82 NIBP 142/85 NIBP BP-Mean 104 Respiration from ECG 30 SpO2 99 I&O: 04/17/19 04/18/19 04/19/19 06:59 06:59 06:59 Intake Total 5115 5865 Output Total 3000 6450 Balance 2115 -585 Result Diagrams: 04/17/19 06:18 04/18/19 06:18 Additional Labs: Accuchecks 04/18/19 04/18/19 04/17/19 10:53 04:20 18:54 POC Glucose 256 H 245 H 285 H 04/17/19 16:40 POC Glucose 324 H Phys Exam - Physical Examination Neck: no nodes, no JVD, supple, full ROM Respiratory: no wheezing, no rales, no rhonchi, clear to auscultation bilateral Cardiovascular: RRR, no significant murmur, no rub, gallop, irregular Gastrointestinal: soft, non-tender, no distention, positive bowel sounds Musculoskeletal: no edema, pulses present, edema present Dx/Plan (1) Acute metabolic encephalopathy Code(s): G93.41 - METABOLIC ENCEPHALOPATHY Status: Acute (2) Bacteremia Code(s): R78.81 - BACTEREMIA Status: Acute (3) Alcohol abuse Code(s): F10.10 - ALCOHOL ABUSE, UNCOMPLICATED Status: Acute (4) Hypokalemia Code(s): E87.6 - HYPOKALEMIA Status: Acute (5) Hypomagnesemia Code(s): E83.42 - HYPOMAGNESEMIA Status: Acute (6) Dehydration Code(s): E86.0 - DEHYDRATION Status: Acute (7) AURELIANO (acute kidney injury) Code(s): N17.9 - ACUTE KIDNEY FAILURE, UNSPECIFIED Status: Acute - Plan creatinine improving, per nephro will continue iv fluids -: pt will need snf, LP indicates elevated protein and glucose -: will increase his insulin * . Review of Systems - Review of Systems Respiratory: negative: Cough, Dry, Shortness of Breath, Hemoptysis, SOB with Excertion, Pleuritic Pain, Sputum, Wheezing Cardiovascular: negative: chest pain, palpitations, orthopnea, paroxysmal nocturnal dyspnea, edema, light headedness, other - Medications/Allergies Allergies/Adverse Reactions: Allergies Allergy/AdvReac Type Severity Reaction Status Date / Time No Known Allergies Allergy Unverified 04/11/19 14:06 Medications: Current Medications Acetaminophen (Tylenol) 650 mg PO Q4H PRN PRN Reason: Headache/Fever/Mild Pain (1-3) Last Admin: 04/18/19 01:03 Dose: 650 mg Amlodipine Besylate (Norvasc) 10 mg PO DAILY [facility] Last Admin: 04/18/19 08:51 Dose: 10 mg Atorvastatin Calcium (Lipitor) 20 mg PO HS [facility] Last Admin: 04/17/19 20:34 Dose: 20 mg Bupropion HCl (Wellbutrin Xl) 150 mg PO DAILY [facility] Last Admin: 04/18/19 08:51 Dose: 150 mg Clonidine (Catapres) 0.1 mg PO Q4H PRN PRN Reason: SBP >= 180 Last Admin: 04/16/19 12:11 Dose: 0.1 mg Clopidogrel Bisulfate (Plavix) 75 mg PO DAILY [facility] Last Admin: 04/18/19 08:51 Dose: 75 mg Dextrose/Water (Dextrose 50%) 25 gm SLOW IVP PRN PRN PRN Reason: Hypoglycemia Diltiazem HCl (Cardizem Cd) 120 mg PO DAILY [facility] Last Admin: 04/18/19 08:51 Dose: 120 mg Famotidine (Pepcid) 20 mg PO BID [facility] Last Admin: 04/18/19 08:52 Dose: 20 mg Glucagon (Glucagon) 1 mg IM PRN PRN PRN Reason: Hypoglycemia Glyburide (Diabeta) 5 mg PO BID [facility] Last Admin: 04/18/19 08:51 Dose: 5 mg Heparin Sodium (Porcine) (Heparin) 5,000 units SC BID [facility] Last Admin: 04/18/19 08:51 Dose: 5,000 units Hydralazine HCl (Apresoline) 10 mg SLOW IVP Q4H PRN PRN Reason: SBP > 180 and HR < 70 Last Admin: 04/15/19 13:02 Dose: 10 mg Hydralazine HCl (Apresoline) 25 mg PO TID [facility] Last Admin: 04/18/19 08:51 Dose: 25 mg Dextrose/Water (D5w) 1,000 mls @ 0 mls/hr IV .Q0M PRN PRN Reason: Hypoglycemia Insulin Glargine 15 units/ (Miscellaneous Medication) 0.15 mls @ 0 mls/hr SC QAM [facility] Last Admin: 04/18/19 08:52 Dose: 0.15 mls Sodium Chloride (Normal Saline 0.9%) 1,000 mls @ 75 mls/hr IV .[id number] [facility] Last Admin: 04/18/19 08:52 Dose: 1,000 mls Insulin Glargine 18 units/ (Miscellaneous Medication) 0.18 mls @ 0 mls/hr SC HS [facility] Last Admin: 04/17/19 20:35 Dose: 0.18 mls Insulin Human Lispro (Humalog) 0 units SC .MODERATE SLIDING SC PRN; Protocol PRN Reason: MODERATE SLIDING SCALE Last Admin: 04/18/19 11:59 Dose: 6 unit Insulin Human Lispro (Humalog) 8 units SC AC [facility] Last Admin: 04/18/19 11:58 Dose: 8 unit Lorazepam (Ativan) 1 mg SLOW IVP Q8H PRN PRN Reason: Alcohol Withdrawal Metoprolol Tartrate (Lopressor) 25 mg PO BID [facility] Last Admin: 04/18/19 08:52 Dose: 25 mg Nystatin (Mycostatin Powder) 0 gm TOP QD PRN PRN Reason: Rash/Topical Irritation Last Admin: 04/17/19 17:21 Dose: 1 applic Ondansetron HCl (Zofran Odt) 4 mg PO Q6H PRN PRN Reason: Nausea/Vomiting Ondansetron HCl (Zofran) 4 mg IVP Q6H PRN PRN Reason: Nausea/Vomiting Potassium Chloride (K-Dur) 40 meq PO BID-WM [facility] Last Admin: 04/18/19 11:58 Dose: 40 meq Sodium Chloride (Flush - Normal Saline) 10 ml IVF Q12HR [facility] Last Admin: 04/18/19 08:53 Dose: Not Given Sodium Chloride (Flush - Normal Saline) 10 ml IVF PRN PRN PRN Reason: Saline Flush Tamsulosin HCl (Flomax) 0.4 mg PO DAILY [facility] Last Admin: 04/18/19 08:52 Dose: 0.4 mg Thiamine HCl (Thiamine) 100 mg PO QPM [facility]
[2019-04-18] MEDS: Atorvastatin Calcium 20 MG TAB PO SCH (20:23)
[2019-04-18] MEDS: Insulin Glargine 18 UNITS in Pre-Filled Syringe 1 EACH SC SCH (20:24)
[2019-04-18] MEDS: Thiamine 100 MG TAB PO SCH (20:25)
[2019-04-19] MEDS: Sodium Chloride 0.9% 1,000 ML IV SCH ×3 (04:53→23:20)
[2019-04-19] MEDS: Acetaminophen 325 MG TAB PO PRN (05:01)
[2019-04-19] MEDS: HumaLOG 300 UNITS/3 ML VIAL SC PRN (05:40)
[2019-04-19 06:30] LABS: Anion Gap 13 mmol/L (10-20); BUN (Urea Nitrogen) 12 mg/dL (8.4-25.7); Calc. Creatinine Clearance 75 mL/min (70-130); Calcium 9.1 mg/dL (7.8-10.44); Carbon Dioxide 26 mmol/L (23-31); Chloride 104 mmol/L (98-107); Estimated GFR-MDRD 47; Glucose 245 mg/dL (83-110); Potassium 3.2 mmol/L (3.5-5.1); Sodium 140 mmol/L (136-145)
[2019-04-19] MEDS: Clopidogrel Bisulfate 75 MG TAB PO SCH (08:42)
[2019-04-19] MEDS: glyBURIDE 5 MG TAB PO SCH ×2 (08:42→20:06)
[2019-04-19] MEDS: hydrALAZINE 25 MG TAB PO SCH ×3 (08:42→20:06)
[2019-04-19] MEDS: Tamsulosin HCl 0.4 MG CAP PO SCH (08:42)
[2019-04-19] MEDS: Potassium Chloride 20 MEQ TAB PO SCH ×2 (08:42→17:06)
[2019-04-19] MEDS: HumaLOG 300 UNITS/3 ML VIAL SC SCH ×3 (08:42→17:07)
[2019-04-19] MEDS: Amlodipine 10 MG TAB PO SCH (08:43)
[2019-04-19] MEDS: Famotidine 20 MG TAB PO SCH ×2 (08:43→20:05)
[2019-04-19] MEDS: Metoprolol Tartrate 25 MG TAB PO SCH ×2 (08:43→20:06)
[2019-04-19] MEDS: Insulin Glargine 15 UNITS in Pre-Filled Syringe 1 EACH SC SCH (08:43)
[2019-04-19] MEDS: Bupropion 150 MG XL TAB PO SCH (08:44)
[2019-04-19] MEDS: Heparin 5,000 UNITS/ML VIAL SC SCH ×2 (08:44→20:12)
--- NOTE | 2019-04-19 11:48 | PRG ---
DATE OF SERVICE: 04/19/2019 SUBJECTIVE: Patient was seen and examined at bedside and overnight events noted. Patient denies any shortness of breath or chest pain or palpitation. No history of nausea or vomiting or diarrhea or fever or chills or cramps. OBJECTIVE: GENERAL: This is a well-built male, in no apparent distress. VITAL SIGNS: Temperature 97.7. Heart rate 71. Respiratory rate 18. Blood pressure 148/79. HEENT: Atraumatic, normocephalic. Oral mucosa is moist NECK: Supple. CARDIOVASCULAR: S1, S2 heard. Rate and rhythm regular. RESPIRATORY: Clear to auscultation. GASTROINTESTINAL: Abdomen is soft. MUSCULOSKELETAL: No tenderness. No edema. DERMATOLOGIC: No skin rash. NEUROLOGIC: Alert and awake and oriented X3. No focal neurologic deficits. Moving all the extremities. PSYCHIATRIC: Mood and affect normal. LABORATORY DATA: Potassium 3.2, BUN is 12, creatinine is 1.4. ASSESSMENT AND PLAN: 1. Acute kidney injury, getting better. 2. . 3. Polyuria. 4. Edema . 5. Continue tight glycemic control, and we will follow. Job ID: [id number]
[2019-04-19] MEDS: Atorvastatin Calcium 20 MG TAB PO SCH (20:05)
[2019-04-19] MEDS: Thiamine 100 MG TAB PO SCH (20:07)
[2019-04-19] MEDS: Insulin Glargine 18 UNITS in Pre-Filled Syringe 1 EACH SC SCH (20:15)
[2019-04-20] MEDS: Acetaminophen 325 MG TAB PO PRN ×2 (01:31→20:34)
[2019-04-20] MEDS: Sodium Chloride 0.9% 1,000 ML IV SCH ×2 (04:58→16:58)
[2019-04-20] MEDS: HumaLOG 300 UNITS/3 ML VIAL SC PRN (06:16)
[2019-04-20 06:31] LABS: Anion Gap 13 mmol/L (10-20); BUN (Urea Nitrogen) 14 mg/dL (8.4-25.7); Calc. Creatinine Clearance 75 mL/min (70-130); Carbon Dioxide 25 mmol/L (23-31); Chloride 105 mmol/L (98-107); Estimated GFR-MDRD 46; Glucose 196 mg/dL (83-110); Potassium 3.4 mmol/L (3.5-5.1); Sodium 140 mmol/L (136-145)
[2019-04-20] MEDS: Clopidogrel Bisulfate 75 MG TAB PO SCH (07:57)
[2019-04-20] MEDS: hydrALAZINE 25 MG TAB PO SCH ×3 (07:58→20:41)
[2019-04-20] MEDS: Potassium Chloride 20 MEQ TAB PO SCH ×2 (07:58→16:55)
[2019-04-20] MEDS: Amlodipine 10 MG TAB PO SCH (07:58)
[2019-04-20] MEDS: Tamsulosin HCl 0.4 MG CAP PO SCH (07:58)
[2019-04-20] MEDS: glyBURIDE 5 MG TAB PO SCH ×2 (07:58→20:40)
[2019-04-20] MEDS: Heparin 5,000 UNITS/ML VIAL SC SCH ×2 (07:59→20:40)
[2019-04-20] MEDS: HumaLOG 300 UNITS/3 ML VIAL SC SCH ×3 (07:59→16:55)
[2019-04-20] MEDS: Bupropion 150 MG XL TAB PO SCH (07:59)
[2019-04-20] MEDS: Metoprolol Tartrate 25 MG TAB PO SCH ×2 (07:59→20:42)
[2019-04-20] MEDS: Famotidine 20 MG TAB PO SCH ×2 (07:59→20:40)
[2019-04-20] MEDS: Insulin Glargine 15 UNITS in Pre-Filled Syringe 1 EACH SC SCH (09:36)
--- NOTE | 2019-04-20 14:23 | PRG ---
DATE OF SERVICE: 04/20/2019 SUBJECTIVE: Patient was seen and examined at bedside and overnight events noted. Patient denies any shortness of breath or chest pain or palpitation. No history of nausea or vomiting or diarrhea or fever or chills or cramps. OBJECTIVE: GENERAL: This is a well-built male in no apparent distress. VITAL SIGNS: Temperature 97.8. Heart rate 70. Respiratory rate . Blood pressure 126/66. HEENT: Atraumatic, normocephalic. Oral mucosa is moist NECK: Supple. CARDIOVASCULAR: S1, S2 heard. Rate and rhythm regular. RESPIRATORY: Clear to auscultation. GASTROINTESTINAL: Abdomen is soft. MUSCULOSKELETAL: No tenderness. No edema. DERMATOLOGIC: No skin rash. NEUROLOGIC: Alert and awake and oriented X3. No focal neurologic deficits. Moving all the extremities. PSYCHIATRIC: Mood and affect normal. LABORATORY DATA: Potassium is 3.4. Creatinine is 1.4. ASSESSMENT AND PLAN: 1. Acute kidney injury on chronic kidney disease, stage 3, stable labs. 2. Polyuria, might need workup with Endocrine as outpatient. 3. Osmotic diuresis. 4. Edema. 5. History of hypertension. 6. Hyperglycemia. 7. We will continue to follow. Job ID: [id number]
--- NOTE | 2019-04-20 16:58 | PDOC.PN ---
- Subjective Encounter Start Date: 04/20/19 Encounter Start Time: 09:00 Pt seen for followup re: acute metabolic encephalopathy. Says he feels better. - Objective Resuscitation Status - Order Detail: 04/11/19 13:40 Resuscitation Status Routine Resuscitation Status: FULL: Full Resuscitation Vital Signs & Weight: Vital Signs (12 hours) Temp Pulse Resp BP BP Pulse Ox 04/20/19 15:35 136/79 04/20/19 14:13 106/62 04/20/19 12:00 126/66 04/20/19 11:29 97.8 F 70 20 126/66 94 L 04/20/19 08:00 153/81 H 04/20/19 07:59 96 04/20/19 07:58 96 153/81 H 04/20/19 07:37 97 F L 96 20 153/81 H 96 Weight Admit Weight 237 lb 14.4 oz Weight 256 lb 8 oz Most Recent Monitor Data Heart Rate from ECG 82 NIBP 142/85 NIBP BP-Mean 104 Respiration from ECG 30 SpO2 99 I&O: 04/19/19 04/20/19 04/21/19 06:59 06:59 06:59 Intake Total 3965 3485 Output Total 3600 4950 Balance 365 -1465 Result Diagrams: 04/17/19 06:18 04/20/19 05:21 Additional Labs: Accuchecks 04/20/19 04/20/19 04/19/19 11:34 03:57 19:23 POC Glucose 189 H 196 H 213 H Phys Exam - Physical Examination Obese HEENT: moist MMs Neck: supple Respiratory: clear to auscultation bilateral Cardiovascular: RRR Gastrointestinal: soft Neurological: moves all 4 limbs Psychiatric: normal affect Dx/Plan (1) Acute metabolic encephalopathy Code(s): G93.41 - METABOLIC ENCEPHALOPATHY Status: Acute Comment: slowly improving (2) AURELIANO (acute kidney injury) Code(s): N17.9 - ACUTE KIDNEY FAILURE, UNSPECIFIED Status: Acute Comment: stabilizing, creatinine 1.49 (3) DM2 (diabetes mellitus, type 2) Status: Chronic Comment: continue Lantus insulin, accuchecks and insulin sliding scale (4) Bacteremia Code(s): R78.81 - BACTEREMIA Status: Ruled-out Comment: pt is off of antibiotics - Plan * . Discussed at length with pt re: need for SNU at discharge because he needs supervision with meds etc. Pt insistent on going home with home health, but will think about it. Risks vs benefits of various options discussed. Review of Systems - Review of Systems Respiratory: negative: Cough, Shortness of Breath, SOB with Excertion, Pleuritic Pain, Wheezing Cardiovascular: negative: chest pain, palpitations, orthopnea, paroxysmal nocturnal dyspnea, edema, light headedness - Medications/Allergies Allergies/Adverse Reactions: Allergies Allergy/AdvReac Type Severity Reaction Status Date / Time No Known Allergies Allergy Unverified 04/11/19 14:06 Medications: Current Medications Acetaminophen (Tylenol) 650 mg PO Q4H PRN PRN Reason: Headache/Fever/Mild Pain (1-3) Last Admin: 04/20/19 01:31 Dose: 650 mg Amlodipine Besylate (Norvasc) 10 mg PO DAILY [facility] Last Admin: 04/20/19 07:58 Dose: 10 mg Atorvastatin Calcium (Lipitor) 20 mg PO [facility] Last Admin: 04/19/19 20:05 Dose: 20 mg Bupropion HCl (Wellbutrin Xl) 150 mg PO DAILY [facility] Last Admin: 04/20/19 07:59 Dose: 150 mg Clonidine (Catapres) 0.1 mg PO Q4H PRN PRN Reason: SBP >= 180 Last Admin: 04/16/19 12:11 Dose: 0.1 mg Clopidogrel Bisulfate (Plavix) 75 mg PO DAILY [facility] Last Admin: 04/20/19 07:57 Dose: 75 mg Dextrose/Water (Dextrose 50%) 25 gm SLOW IVP PRN PRN PRN Reason: Hypoglycemia Diltiazem HCl (Cardizem Cd) 120 mg PO DAILY [facility] Last Admin: 04/20/19 07:58 Dose: 120 mg Famotidine (Pepcid) 20 mg PO BID [facility] Last Admin: 04/20/19 07:59 Dose: 20 mg Glucagon (Glucagon) 1 mg IM PRN PRN PRN Reason: Hypoglycemia Glyburide (Diabeta) 5 mg PO BID [facility] Last Admin: 04/20/19 07:58 Dose: 5 mg Heparin Sodium (Porcine) (Heparin) 5,000 units SC BID [facility] Last Admin: 04/20/19 07:59 Dose: 5,000 units Hydralazine HCl (Apresoline) 10 mg SLOW IVP Q4H PRN PRN Reason: SBP > 180 and HR < 70 Last Admin: 04/15/19 13:02 Dose: 10 mg Hydralazine HCl (Apresoline) 25 mg PO TID [facility] Last Admin: 04/20/19 15:35 Dose: 25 mg Dextrose/Water (D5w) 1,000 mls @ 0 mls/hr IV .Q0M PRN PRN Reason: Hypoglycemia Insulin Glargine 15 units/ (Miscellaneous Medication) 0.15 mls @ 0 mls/hr SC QAM [facility] Last Admin: 04/20/19 09:36 Dose: 0.15 mls Sodium Chloride (Normal Saline 0.9%) 1,000 mls @ 75 mls/hr IV .[id number] [facility] Last Admin: 04/20/19 04:58 Dose: 1,000 mls Insulin Glargine 18 units/ (Miscellaneous Medication) 0.18 mls @ 0 mls/hr SC [facility] Last Admin: 04/19/19 20:15 Dose: 0.18 mls Insulin Human Lispro (Humalog) 0 units SC .MODERATE SLIDING SC PRN; Protocol PRN Reason: MODERATE SLIDING SCALE Last Admin: 04/20/19 06:16 Dose: 2 unit Insulin Human Lispro (Humalog) 8 units SC AC [facility] Last Admin: 04/20/19 11:33 Dose: 8 unit Lorazepam (Ativan) 1 mg SLOW IVP Q8H PRN PRN Reason: Alcohol Withdrawal Metoprolol Tartrate (Lopressor) 25 mg PO BID [facility] Last Admin: 04/20/19 07:59 Dose: 25 mg Nystatin (Mycostatin Powder) 0 gm TOP QD PRN PRN Reason: Rash/Topical Irritation Last Admin: 04/17/19 17:21 Dose: 1 applic Ondansetron HCl (Zofran Odt) 4 mg PO Q6H PRN PRN Reason: Nausea/Vomiting Ondansetron HCl (Zofran) 4 mg IVP Q6H PRN PRN Reason: Nausea/Vomiting Potassium Chloride (K-Dur) 40 meq PO BID[facility] Last Admin: 04/20/19 07:58 Dose: 40 meq Sodium Chloride (Flush - Normal Saline) 10 ml IVF Q12HR [facility] Last Admin: 04/20/19 07:59 Dose: Not Given Sodium Chloride (Flush - Normal Saline) 10 ml IVF PRN PRN PRN Reason: Saline Flush Tamsulosin HCl (Flomax) 0.4 mg PO DAILY [facility] Last Admin: 04/20/19 07:58 Dose: 0.4 mg Thiamine HCl (Thiamine) 100 mg PO QPM [facility] Last Admin: 04/19/19 20:07 Dose: 100 mg
[2019-04-20] MEDS: Atorvastatin Calcium 20 MG TAB PO SCH (20:40)
[2019-04-20] MEDS: Insulin Glargine 18 UNITS in Pre-Filled Syringe 1 EACH SC SCH (20:41)
[2019-04-20] MEDS: Thiamine 100 MG TAB PO SCH (20:42)
[2019-04-21 03:09] LABS: Bacteria/HPF None Seen HPF (None Seen); Bilirubin Negative (Negative); Blood, Urine 3+ (Negative); Clarity Turbid (Clear); Glucose, Urine (Dipstick) Normal (Negative); Leukocyte 250 Leu/uL (Negative); Nitrite Negative (Negative); Protein, Urine (Dipstick) 30 mg/dL (Neg-Trace); RBC/HPF Greater than 50 HPF (0-3); Squamous Epithelial None Seen HPF (0-3); Urobilinogen Normal mg/dL (Less than 2); WBC/HPF Greater than 50 HPF (0-3)
[2019-04-21] MEDS: Sodium Chloride 0.9% 1,000 ML IV SCH ×2 (03:56→16:11)
--- NOTE | 2019-04-21 04:08 | PDOC.PN ---
- Subjective Encounter Start Date: 04/19/19 Encounter Start Time: 10:15 Subjective: pt up in bed no complains - Objective Resuscitation Status - Order Detail: 04/11/19 13:40 Resuscitation Status Routine Resuscitation Status: FULL: Full Resuscitation Vital Signs & Weight: Vital Signs (12 hours) Temp Pulse Resp BP BP Pulse Ox 04/21/19 00:00 97.6 F 77 18 134/83 94 L 04/20/19 20:41 90 147/87 H 04/20/19 20:00 94 L 04/20/19 19:21 98.2 F 90 20 147/87 H 94 L 04/20/19 17:24 98.1 F 76 18 158/83 H 95 Weight Admit Weight 237 lb 14.4 oz Weight 256 lb 8 oz Most Recent Monitor Data Heart Rate from ECG 82 NIBP 142/85 NIBP BP-Mean 104 Respiration from ECG 30 SpO2 99 I&O: 04/19/19 04/20/19 04/21/19 06:59 06:59 06:59 Intake Total 3965 3485 1740 Output Total 3600 4950 1650 Balance 365 -1465 90 Result Diagrams: 04/17/19 06:18 04/20/19 05:21 Additional Labs: Accuchecks 04/20/19 04/20/19 04/20/19 19:14 16:35 11:34 POC Glucose 204 H 212 H 189 H 04/20/19 03:57 POC Glucose 196 H Phys Exam - Physical Examination Neck: no nodes, no JVD, supple, full ROM Respiratory: no wheezing, no rales, no rhonchi, wheezing present, clear to auscultation bilateral Cardiovascular: RRR, no significant murmur, no rub, gallop, irregular Gastrointestinal: soft, non-tender, no distention, positive bowel sounds Dx/Plan (1) Acute metabolic encephalopathy Code(s): G93.41 - METABOLIC ENCEPHALOPATHY Status: Acute Comment: slowly improving (2) Bacteremia Code(s): R78.81 - BACTEREMIA Status: Ruled-out Comment: pt is off of antibiotics (3) Alcohol abuse Code(s): F10.10 - ALCOHOL ABUSE, UNCOMPLICATED Status: Acute (4) Hypokalemia Code(s): E87.6 - HYPOKALEMIA Status: Acute (5) Hypomagnesemia Code(s): E83.42 - HYPOMAGNESEMIA Status: Acute (6) Dehydration Code(s): E86.0 - DEHYDRATION Status: Acute (7) AURELIANO (acute kidney injury) Code(s): N17.9 - ACUTE KIDNEY FAILURE, UNSPECIFIED Status: Acute Comment: stabilizing, creatinine 1.49 - Plan spoke with ID no acute infection. per family pt is almost back to baseline -: He will need some rehab if pt agrees * . Review of Systems - Review of Systems Respiratory: negative: Cough, Dry, Shortness of Breath, Hemoptysis, SOB with Excertion, Pleuritic Pain, Sputum, Wheezing Cardiovascular: negative: chest pain, palpitations, orthopnea, paroxysmal nocturnal dyspnea, edema, light headedness, other - Medications/Allergies Allergies/Adverse Reactions: Allergies Allergy/AdvReac Type Severity Reaction Status Date / Time No Known Allergies Allergy Unverified 04/11/19 14:06 Medications: Current Medications Acetaminophen (Tylenol) 650 mg PO Q4H PRN PRN Reason: Headache/Fever/Mild Pain (1-3) Last Admin: 04/20/19 20:34 Dose: 650 mg Amlodipine Besylate (Norvasc) 10 mg PO DAILY [facility] Last Admin: 04/20/19 07:58 Dose: 10 mg Atorvastatin Calcium (Lipitor) 20 mg PO HS [facility] Last Admin: 04/20/19 20:40 Dose: 20 mg Bupropion HCl (Wellbutrin Xl) 150 mg PO DAILY [facility] Last Admin: 04/20/19 07:59 Dose: 150 mg Clonidine (Catapres) 0.1 mg PO Q4H PRN PRN Reason: SBP >= 180 Last Admin: 04/16/19 12:11 Dose: 0.1 mg Clopidogrel Bisulfate (Plavix) 75 mg PO DAILY [facility] Last Admin: 04/20/19 07:57 Dose: 75 mg Dextrose/Water (Dextrose 50%) 25 gm SLOW IVP PRN PRN PRN Reason: Hypoglycemia Diltiazem HCl (Cardizem Cd) 120 mg PO DAILY [facility] Last Admin: 04/20/19 07:58 Dose: 120 mg Famotidine (Pepcid) 20 mg PO BID [facility] Last Admin: 04/20/19 20:40 Dose: 20 mg Glucagon (Glucagon) 1 mg IM PRN PRN PRN Reason: Hypoglycemia Glyburide (Diabeta) 5 mg PO BID [facility] Last Admin: 04/20/19 20:40 Dose: 5 mg Heparin Sodium (Porcine) (Heparin) 5,000 units SC BID [facility] Last Admin: 04/20/19 20:40 Dose: 5,000 units Hydralazine HCl (Apresoline) 10 mg SLOW IVP Q4H PRN PRN Reason: SBP > 180 and HR < 70 Last Admin: 04/15/19 13:02 Dose: 10 mg Hydralazine HCl (Apresoline) 25 mg PO TID [facility] Last Admin: 04/20/19 20:41 Dose: 25 mg Dextrose/Water (D5w) 1,000 mls @ 0 mls/hr IV .Q0M PRN PRN Reason: Hypoglycemia Insulin Glargine 15 units/ (Miscellaneous Medication) 0.15 mls @ 0 mls/hr SC QAM [facility] Last Admin: 04/20/19 09:36 Dose: 0.15 mls Sodium Chloride (Normal Saline 0.9%) 1,000 mls @ 75 mls/hr IV .[id number] [facility] Last Admin: 04/21/19 03:56 Dose: 1,000 mls Insulin Glargine 18 units/ (Miscellaneous Medication) 0.18 mls @ 0 mls/hr SC HS [facility] Last Admin: 04/20/19 20:41 Dose: 0.18 mls Insulin Human Lispro (Humalog) 0 units SC .MODERATE SLIDING SC PRN; Protocol PRN Reason: MODERATE SLIDING SCALE Last Admin: 04/20/19 06:16 Dose: 2 unit Insulin Human Lispro (Humalog) 8 units SC AC [facility] Last Admin: 04/20/19 16:55 Dose: 8 unit Lorazepam (Ativan) 1 mg SLOW IVP Q8H PRN PRN Reason: Alcohol Withdrawal Metoprolol Tartrate (Lopressor) 25 mg PO BID [facility] Last Admin: 04/20/19 20:42 Dose: 25 mg Nystatin (Mycostatin Powder) 0 gm TOP QD PRN PRN Reason: Rash/Topical Irritation Last Admin: 04/17/19 17:21 Dose: 1 applic Ondansetron HCl (Zofran Odt) 4 mg PO Q6H PRN PRN Reason: Nausea/Vomiting Ondansetron HCl (Zofran) 4 mg IVP Q6H PRN PRN Reason: Nausea/Vomiting Potassium Chloride (K-Dur) 40 meq PO BID-[facility] Last Admin: 04/20/19 16:55 Dose: 40 meq Sodium Chloride (Flush - Normal Saline) 10 ml IVF Q12HR [facility] Last Admin: 04/20/19 20:42 Dose: Not Given Sodium Chloride (Flush - Normal Saline) 10 ml IVF PRN PRN PRN Reason: Saline Flush Tamsulosin HCl (Flomax) 0.4 mg PO DAILY [facility] Last Admin: 04/20/19 07:58 Dose: 0.4 mg Thiamine HCl (Thiamine) 100 mg PO QPM [facility] Last Admin: 04/20/19 20:42 Dose: 100 mg
[2019-04-21] MEDS: HumaLOG 300 UNITS/3 ML VIAL SC PRN (06:00)
[2019-04-21 06:55] LABS: Anion Gap 13 mmol/L (10-20); BUN (Urea Nitrogen) 14 mg/dL (8.4-25.7); Calc. Creatinine Clearance 72 mL/min (70-130); Calcium 9.4 mg/dL (7.8-10.44); Carbon Dioxide 25 mmol/L (23-31); Chloride 105 mmol/L (98-107); Estimated GFR-MDRD 45; Glucose 192 mg/dL (83-110); Potassium 3.3 mmol/L (3.5-5.1); Sodium 140 mmol/L (136-145)
[2019-04-21] MEDS: HumaLOG 300 UNITS/3 ML VIAL SC SCH ×3 (07:39→16:37)
[2019-04-21] MEDS: Bupropion 150 MG XL TAB PO SCH (07:40)
[2019-04-21] MEDS: Famotidine 20 MG TAB PO SCH ×2 (07:40→21:03)
[2019-04-21] MEDS: hydrALAZINE 25 MG TAB PO SCH ×3 (07:40→21:02)
[2019-04-21] MEDS: Tamsulosin HCl 0.4 MG CAP PO SCH (07:40)
[2019-04-21] MEDS: Heparin 5,000 UNITS/ML VIAL SC SCH ×2 (07:40→21:05)
[2019-04-21] MEDS: glyBURIDE 5 MG TAB PO SCH ×2 (07:40→21:03)
[2019-04-21] MEDS: Amlodipine 10 MG TAB PO SCH (07:41)
[2019-04-21] MEDS: Potassium Chloride 20 MEQ TAB PO SCH ×2 (07:41→16:37)
[2019-04-21] MEDS: Clopidogrel Bisulfate 75 MG TAB PO SCH (07:41)
[2019-04-21] MEDS: Metoprolol Tartrate 25 MG TAB PO SCH ×2 (07:43→21:03)
[2019-04-21] MEDS: Insulin Glargine 15 UNITS in Pre-Filled Syringe 1 EACH SC SCH (08:19)
--- NOTE | 2019-04-21 13:22 | PRG ---
DATE OF SERVICE: 04/21/2019 SUBJECTIVE: Patient was seen and examined at bedside and overnight events noted. Patient denies any shortness of breath or chest pain or palpitation. No history of nausea or vomiting or diarrhea or fever or chills or cramps. OBJECTIVE: GENERAL: This is a well-built male, in no apparent distress. VITAL SIGNS: Temperature 97.7. Heart rate 80. Respiratory rate 18. Blood pressure 131/61. HEENT: Atraumatic, normocephalic. Oral mucosa is moist NECK: Supple. CARDIOVASCULAR: S1, S2 heard. Rate and rhythm regular. RESPIRATORY: Clear to auscultation. GASTROINTESTINAL: Abdomen is soft. MUSCULOSKELETAL: No tenderness. No edema. DERMATOLOGIC: No skin rash. NEUROLOGIC: Alert and awake and oriented X3. No focal neurologic deficits. Moving all the extremities. PSYCHIATRIC: Mood and affect normal. LABORATORY DATA: Potassium 3.3, BUN is 14, and creatinine is 1.5. ASSESSMENT AND PLAN: 1. Acute kidney injury, stable. Continue IV hydration. 2. Polyuria, most likely from osmotic diuresis. 3. Edema. 4. Hypertension. 5. Hyperglycemia, better. seems to be slowing down, continue IV fluids. Job ID: [id number]
--- NOTE | 2019-04-21 13:37 | PDOC.PN ---
- Subjective Encounter Start Date: 04/21/19 Encounter Start Time: 08:40 Pt seen for followup re: acute metabolic encephalopathy. Denies any complaints. - Objective Resuscitation Status - Order Detail: 04/11/19 13:40 Resuscitation Status Routine Resuscitation Status: FULL: Full Resuscitation MAR Reviewed: Yes Vital Signs & Weight: Vital Signs (12 hours) Temp Pulse Resp BP Pulse Ox 04/21/19 08:00 96 04/21/19 07:41 83 04/21/19 07:40 83 04/21/19 07:23 97.7 F 83 18 131/61 96 04/21/19 04:00 97.7 F 76 18 153/80 H 94 L Weight Admit Weight 237 lb 14.4 oz Weight 256 lb 8 oz Most Recent Monitor Data Heart Rate from ECG 82 NIBP 142/85 NIBP BP-Mean 104 Respiration from ECG 30 SpO2 99 I&O: 04/20/19 04/21/19 04/22/19 06:59 06:59 06:59 Intake Total 3485 3390 360 Output Total 4950 3600 1650 Balance -1260 -210 -9760 Result Diagrams: 04/17/19 06:18 04/21/19 06:15 Additional Labs: Accuchecks 04/21/19 04/21/19 04/20/19 11:29 04:19 19:14 POC Glucose 247 H 183 H 204 H 04/20/19 16:35 POC Glucose 212 H Labs reviewed by me Phys Exam - Physical Examination Obese HEENT: moist MMs Neck: supple Respiratory: clear to auscultation bilateral Cardiovascular: RRR Gastrointestinal: soft Neurological: moves all 4 limbs Psychiatric: normal affect Dx/Plan (1) Acute metabolic encephalopathy Code(s): G93.41 - METABOLIC ENCEPHALOPATHY Status: Acute Comment: slowly improving, pt does not wish to go to SNU (discussed with him) (2) AURELIANO (acute kidney injury) Code(s): N17.9 - ACUTE KIDNEY FAILURE, UNSPECIFIED Status: Acute Comment: creatinine slightly worse, 1.54 today (3) DM2 (diabetes mellitus, type 2) Status: Chronic Comment: reasonable control (4) Bacteremia Code(s): R78.81 - BACTEREMIA Status: Ruled-out - Plan * . Review of Systems - Review of Systems Cardiovascular: negative: chest pain, palpitations, orthopnea, paroxysmal nocturnal dyspnea, edema, light headedness Gastrointestinal: negative: Nausea, Vomiting, Abdominal Pain, Diarrhea, Constipation, Melena, Hematochezia - Medications/Allergies Allergies/Adverse Reactions: Allergies Allergy/AdvReac Type Severity Reaction Status Date / Time No Known Allergies Allergy Unverified 04/11/19 14:06 Medications: Current Medications Acetaminophen (Tylenol) 650 mg PO Q4H PRN PRN Reason: Headache/Fever/Mild Pain (1-3) Last Admin: 04/20/19 20:34 Dose: 650 mg Amlodipine Besylate (Norvasc) 10 mg PO DAILY [facility] Last Admin: 04/21/19 07:41 Dose: 10 mg Atorvastatin Calcium (Lipitor) 20 mg PO HS [facility] Last Admin: 04/20/19 20:40 Dose: 20 mg Bupropion HCl (Wellbutrin Xl) 150 mg PO DAILY [facility] Last Admin: 04/21/19 07:40 Dose: 150 mg Clonidine (Catapres) 0.1 mg PO Q4H PRN PRN Reason: SBP >= 180 Last Admin: 04/16/19 12:11 Dose: 0.1 mg Clopidogrel Bisulfate (Plavix) 75 mg PO DAILY [facility] Last Admin: 04/21/19 07:41 Dose: 75 mg Dextrose/Water (Dextrose 50%) 25 gm SLOW IVP PRN PRN PRN Reason: Hypoglycemia Diltiazem HCl (Cardizem Cd) 120 mg PO DAILY [facility] Last Admin: 04/21/19 07:41 Dose: 120 mg Famotidine (Pepcid) 20 mg PO BID [facility] Last Admin: 04/21/19 07:40 Dose: 20 mg Glucagon (Glucagon) 1 mg IM PRN PRN PRN Reason: Hypoglycemia Glyburide (Diabeta) 5 mg PO BID [facility] Last Admin: 04/21/19 07:40 Dose: 5 mg Heparin Sodium (Porcine) (Heparin) 5,000 units SC BID [facility] Last Admin: 04/21/19 07:40 Dose: 5,000 units Hydralazine HCl (Apresoline) 10 mg SLOW IVP Q4H PRN PRN Reason: SBP > 180 and HR < 70 Last Admin: 04/15/19 13:02 Dose: 10 mg Hydralazine HCl (Apresoline) 25 mg PO TID [facility] Last Admin: 04/21/19 07:40 Dose: 25 mg Dextrose/Water (D5w) 1,000 mls @ 0 mls/hr IV .Q0M PRN PRN Reason: Hypoglycemia Insulin Glargine 15 units/ (Miscellaneous Medication) 0.15 mls @ 0 mls/hr SC QAM [facility] Last Admin: 04/21/19 08:19 Dose: 0.15 mls Sodium Chloride (Normal Saline 0.9%) 1,000 mls @ 75 mls/hr IV .[id number] [facility] Last Admin: 04/21/19 03:56 Dose: 1,000 mls Insulin Glargine 18 units/ (Miscellaneous Medication) 0.18 mls @ 0 mls/hr SC HS [facility] Last Admin: 04/20/19 20:41 Dose: 0.18 mls Insulin Human Lispro (Humalog) 0 units SC .MODERATE SLIDING SC PRN; Protocol PRN Reason: MODERATE SLIDING SCALE Last Admin: 04/21/19 06:00 Dose: 2 unit Insulin Human Lispro (Humalog) 8 units SC AC [facility] Last Admin: 04/21/19 11:11 Dose: 8 unit Lorazepam (Ativan) 1 mg SLOW IVP Q8H PRN PRN Reason: Alcohol Withdrawal Metoprolol Tartrate (Lopressor) 25 mg PO BID [facility] Last Admin: 04/21/19 07:43 Dose: 25 mg Nystatin (Mycostatin Powder) 0 gm TOP QD PRN PRN Reason: Rash/Topical Irritation Last Admin: 04/17/19 17:21 Dose: 1 applic Ondansetron HCl (Zofran Odt) 4 mg PO Q6H PRN PRN Reason: Nausea/Vomiting Ondansetron HCl (Zofran) 4 mg IVP Q6H PRN PRN Reason: Nausea/Vomiting Potassium Chloride (K-Dur) 40 meq PO BID-[facility] Last Admin: 04/21/19 07:41 Dose: 40 meq Sodium Chloride (Flush - Normal Saline) 10 ml IVF Q12HR [facility] Last Admin: 04/21/19 07:41 Dose: 10 ml Sodium Chloride (Flush - Normal Saline) 10 ml IVF PRN PRN PRN Reason: Saline Flush Tamsulosin HCl (Flomax) 0.4 mg PO DAILY [facility] Last Admin: 04/21/19 07:40 Dose: 0.4 mg Thiamine HCl (Thiamine) 100 mg PO QPM [facility] Last Admin: 04/20/19 20:42 Dose: 100 mg
[2019-04-21] MEDS: Thiamine 100 MG TAB PO SCH (21:03)
[2019-04-21] MEDS: Insulin Glargine 18 UNITS in Pre-Filled Syringe 1 EACH SC SCH (21:03)
[2019-04-21] MEDS: Atorvastatin Calcium 20 MG TAB PO SCH (21:03)
[2019-04-22] MEDS: HumaLOG 300 UNITS/3 ML VIAL SC PRN (05:16)
[2019-04-22] MEDS: Sodium Chloride 0.9% 1,000 ML IV SCH (05:20)
[2019-04-22 06:07] LABS: Anion Gap 14 mmol/L (10-20); BUN (Urea Nitrogen) 14 mg/dL (8.4-25.7); Calc. Creatinine Clearance 72 mL/min (70-130); Calcium 9.1 mg/dL (7.8-10.44); Carbon Dioxide 26 mmol/L (23-31); Chloride 104 mmol/L (98-107); Estimated GFR-MDRD 45; Glucose 229 mg/dL (83-110); Potassium 3.7 mmol/L (3.5-5.1); Sodium 140 mmol/L (136-145)
[2019-04-22 07:36] VITALS: BP 151/84; TEMP 98.3
[2019-04-22] MEDS: glyBURIDE 5 MG TAB PO SCH (07:55)
[2019-04-22] MEDS: Bupropion 150 MG XL TAB PO SCH (07:55)
[2019-04-22] MEDS: HumaLOG 300 UNITS/3 ML VIAL SC SCH ×2 (07:55→11:24)
[2019-04-22] MEDS: Clopidogrel Bisulfate 75 MG TAB PO SCH (07:56)
[2019-04-22] MEDS: hydrALAZINE 25 MG TAB PO SCH ×2 (07:56→14:37)
[2019-04-22] MEDS: Famotidine 20 MG TAB PO SCH (07:56)
[2019-04-22] MEDS: Amlodipine 10 MG TAB PO SCH (07:56)
[2019-04-22] MEDS: Metoprolol Tartrate 25 MG TAB PO SCH (07:56)
[2019-04-22] MEDS: Tamsulosin HCl 0.4 MG CAP PO SCH (07:57)
[2019-04-22] MEDS: Heparin 5,000 UNITS/ML VIAL SC SCH (08:02)
[2019-04-22] MEDS: Potassium Chloride 20 MEQ TAB PO SCH (08:02)
[2019-04-22] MEDS: Insulin Glargine 15 UNITS in Pre-Filled Syringe 1 EACH SC SCH (08:56)
--- NOTE | 2019-04-22 14:38 | PRG ---
DATE OF SERVICE: 04/22/2019 SUBJECTIVE: Patient was seen and examined at bedside and overnight events noted. Patient denies any shortness of breath or chest pain or palpitation. No history of nausea or vomiting or diarrhea or fever or chills or cramps. OBJECTIVE: GENERAL: This is a well-built in no apparent distress. VITAL SIGNS: Temperature 98.3. Heart rate 71. Respiratory rate 18. Blood pressure 151/84. HEENT: Atraumatic, normocephalic. Oral mucosa is moist NECK: Supple. CARDIOVASCULAR: S1, S2 heard. Rate and rhythm regular. RESPIRATORY: Clear to auscultation. GASTROINTESTINAL: Abdomen is soft. MUSCULOSKELETAL: No tenderness. No edema. DERMATOLOGIC: No skin rash. NEUROLOGIC: Alert and awake and oriented X3. No focal neurologic deficits. Moving all the extremities. PSYCHIATRIC: Mood and affect normal. LABORATORY DATA: Potassium is 3.7, BUN is 14, and creatinine is 1.5. ASSESSMENT/PLAN: 1. Acute kidney injury, stable. 2. . 3. Polyuria. 4. Hypertension. 5. Hyperglycemia, better. The patient will need close monitoring as outpatient. The patient was advised to follow up with Job ID: [id number]
--- NOTE | 2019-04-22 21:02 | DIS ---
DATE OF ADMISSION: 04/11/2019 DATE OF DISCHARGE: 04/22/2019 PRIMARY CARE PROVIDER: Dr. Gilberto Bell. DISCHARGE DIAGNOSES: 1. Acute metabolic encephalopathy. 2. Diabetic ketoacidosis. 3. Sepsis due to bacteremia secondary to Staphylococcus hominis. 4. Acute kidney injury. CONDITION OF PATIENT ON THE DAY OF DISCHARGE: I assessed Mr. Gray on the day of discharge. He denies any chest pain or shortness of breath. Vital signs are stable. S1 and S2 are heard, regular. Lungs are clear to auscultation bilaterally. CONSULTATIONS DURING THIS HOSPITALIZATION: Pulmonary and Critical Care Medicine, Dr. Burrell. Infectious Diseases, Dr. Owens and Nephrology, Dr. Meyer. DISCHARGE MEDICATIONS: 1. Wellbutrin XL 150 mg daily. 2. Plavix 75 mg daily. 3. Cardizem CD 120 mg daily. 4. Fluoxetine 40 mg daily. 5. Glyburide 5 mg 2 times a day. 6. Simvastatin 40 mg at bedtime. 7. Tamsulosin 0.4 mg daily. 8. Amlodipine 10 mg daily. 9. Hydralazine 25 mg 3 times a day. 10. Levemir insulin 15 units in the morning and 18 units in the evening. 11. Lopressor 25 mg 2 times a day. HOSPITAL COURSE: Mr. Gray is a pleasant 73-year-old gentleman, who was admitted to [facility] on 04/11/2019, for acute metabolic encephalopathy and diabetic ketoacidosis. Please refer to Dr. Mccullough's history and physical note dated 04/11/2019, for further details. He was treated with intravenous fluids and insulin. He improved clinically. In terms of encephalopathy, no clear etiology was found. His blood cultures were positive for Staphylococcus hominis, 2/2 samples. He was treated with antibiotics. Infectious Disease Service was consulted. He had syphilis serology, which was nonreactive. He also had CSF studies, which were unremarkable. He continued to improve slowly. He was also seen by Nephrology Service for acute kidney injury. His creatinine improved and stabilized, 1.54 on the day of discharge. He also has polyuria, most likely secondary to elevated blood sugars. Nephrology Service will follow up with him as outpatient. He was seen by Therapy Services. He was recommended nursing home placement. He refused to go to nursing home facility. After discussing risks and benefits of nursing home facility, the patient wanted to go home with home health. Risks and benefits of home with home health were also discussed. The patient and family are insistent that they will only go home with home health. They will follow up with primary care provider for arrangement of home health services. On the day of discharge, Mr. Gray has normal electrolytes, creatinine 1.54, calcium 9.1, and blood urea nitrogen of 14. Many thanks for allowing me to participate in your patient's care. Please feel free to contact me with any questions or concerns. DISCHARGE DESTINATION: Home. TIME SPENT: Total amount of time spent coordinating this discharge: 32 minutes. Job ID: [id number]
== END 2019-04-22 15:01 | disposition home health service (06) | DRG 871 ==
LOC: ERS 09:42 → IMCU/EMU 12:57 → T4-B 04-14 15:01
PROVIDERS: ADMIT Internal Medicine; ATTEND Internal Medicine
PROC: 009U3ZX Drainage of Spinal Canal, Percutaneous Approach, Diagnostic (ICD-10-PCS; principal; 2019-04-17)
PROC: B01BZZZ Fluoroscopy of Spinal Cord (ICD-10-PCS; 2019-04-17)
DX: A41.1 Sepsis due to other specified staphylococcus (principal); G93.41 Metabolic encephalopathy; E11.10 Type 2 diabetes mellitus with ketoacidosis without coma; N17.9 Acute kidney failure, unspecified; E66.9 Obesity, unspecified; G47.30 Sleep apnea, unspecified; F10.10 Alcohol abuse, uncomplicated; E87.6 Hypokalemia; E83.42 Hypomagnesemia; E86.0 Dehydration; I12.9 Hypertensive chronic kidney disease with stage 1 through stage 4 chronic kidney disease, or unspecified chronic kidney disease; N18.3 Chronic kidney disease, stage 3 (moderate); E11.22 Type 2 diabetes mellitus with diabetic chronic kidney disease; Z90.49 Acquired absence of other specified parts of digestive tract; Z68.32 Body mass index [BMI] 32.0-32.9, adult
CPT/HCPCS: 36415; 36416; 62270; 70450; 70551; 71045; 76770; 80048; 80053; 80076; 80202; 80307; 81001; 81003; 81015; 82010; 82140; 82550; 82553; 82805; 82945; 83036; 83605; 83735; 83880; 83930; 83935; 84100; 84157; 84300; 84484; 85025; 86780; 87040; 87077; 87086; 87149; 87186; 89051; 93005; 93010; 93306; 96361; 96365; 96367; 96375; 96376; J0131; J0360; J0744; J1644; J1650; J1815; J2060; J2543; J3370; J3411; J3475; J3480; J3490; J7050

== ENCOUNTER 2019-07-20 14:12 | Inpatient (IN) | payer MEDICARE, OTHER ==
[2019-07-20] MEDS ORDERED: Acetaminophen/Codeine 30-300mg Tablet ONE (14:40)
--- NOTE | 2019-07-20 15:12 | RAD ---
Right knee 4 views HISTORY: Fall. Right knee injury. FINDINGS: Interval progression of tricompartmental osteophytosis. Joint spaces are preserved. No acut e fracture, dislocation, or fluid distention of the suprapatellar bursa. Calcification over the arterial structures. IMPRESSION: Mild osteoarthritic changes right knee. No acute osseous abnormalities are demonstrated. Atherosclerosis.
--- NOTE | 2019-07-20 15:13 | RAD ---
Right hip 2 views HISTORY: Fall. Right hip injury. FINDINGS: Mild joint space narrowing, osteophytosis, and subchondral sclerosis. Femoral head contour is maintained. No acute fracture, dislocation, or aggressive osseous erosions. IMPRESSION: Osteoarthritis right hip. No acute osseous abnormalities are demonstrated.
--- NOTE | 2019-07-20 15:20 | RAD ---
Radiograph pelvis one view: DATE: 73-year-old male with persistent posttraumatic right hip pain after fall several days ago. FINDINGS: Pelvic ring appears to be intact with no evidence of fracture or dislocation. IMPRESSION: Negative
--- NOTE | 2019-07-20 15:53 | CT ---
CT CERVICAL SPINE: Axial tomograms were obtained with multiplanar reconstruction. INDICATION: Fall. FINDINGS: Cervical vertebrae maintain height and alignment. There are mild degenerative changes of the cervica l spine. Loss of disk space at C6-7 an dC7-T1. Posterior spondylosis is prominent at C6-7. No evidence of fracture identified. IMPRESSION: No evidence of cervical spine fracture. Degenerative changes as described. POS: [facility]
--- NOTE | 2019-07-20 15:55 | CT ---
CT BRAIN 07/20/19 PROVIDED CLINICAL HISTORY: Fall. FINDINGS: Comparison 04/11/19. There is a large amount of intraventricular hemorrhage predominantly within the body of the right lat eral ventricle with some in both occipital horns as well as within the third ventricle. There is mild displacement of the interventricular septum leftwards. There is no evidence for parenchymal or extra -axial hemorrhage. The extracranial soft tissues and osseous structures appear unremarkable. IMPRESSION: Large amount of intraventricular hemorrhage as described. Findings communicated to Dr. Demarco in the Emergency Department, 3:50 p.m., 07/20/19. Code CR POS: [facility]
--- NOTE | 2019-07-20 16:05 | RAD ---
EXAM: CHEST ONE VIEW HISTORY: Altered mental status COMPARISON: 04/15/2019 FINDINGS: Cardiac silhouette is magnified projection and shallow depth of inspiration. Pulmonary vasculature is within normal limits. There is bibasilar atelectasis. Lungs otherwise appear clear. A calcified granuloma overlies medial aspect left upper lung zone at the level of the aortic arch. The osseous st ructures are intact. IMPRESSION: No acute cardiopulmonary process.
[2019-07-20 16:22] LABS: #Basophils 0.1 thou/uL (0.0-0.2); #Lymphocytes 1.1 thou/uL (1.20-3.40); #Monocytes 0.6 thou/uL (0.11-0.59); %Basophils 0.9 % (0.0-1.0); %Eosinophils 0.4 % (0.0-10.0); %Lymphocytes 16.6 % (21.0-51.0); %Monocytes 8.5 % (0.0-10.0); %Neutrophils 73.6 % (42.0-75.0); Hemoglobin 11.9 g/dL (14.0-18.0); Mean Corpuscular HGB CONC 37.2 g/dL (32.0-36.0); Mean Corpuscular Hemoglobin 37.6 pg (27.0-31.0); Mean Platelet Volume 7.4 fL (7.4-10.4); Platelet Count 181 thou/uL (130-400); Red Blood Cell (RBC) Count 3.15 mill/uL (4.70-6.10); White Blood Cell (WBC) Count 6.7 thou/uL (4.8-10.8)
[2019-07-20 16:27] LABS: INR-International Normal Ratio 1.1; PTT 28.8 SEC (22.9-36.1); Prothrombin Time 14.5 SEC (12.0-14.7)
[2019-07-20 16:43] LABS: ALT (SGPT) 12 U/L (8-55); AST (SGOT) 16 U/L (5-34); Albumin 3.7 g/dL (3.4-4.8); Alkaline Phosphatase 78 U/L (40-110); Anion Gap 23 mmol/L (10-20); BUN (Urea Nitrogen) 17 mg/dL (8.4-25.7); CK (CPK) 92 U/L (30-200); Calc. Creatinine Clearance 0 mL/min (70-130); Calcium 8.9 mg/dL (7.8-10.44); Carbon Dioxide 17 mmol/L (23-31); Chloride 99 mmol/L (98-107); Estimated GFR-MDRD 69; Globulin 3.4 g/dL (2.4-3.5); Glucose 381 mg/dL (83-110); Potassium 3.2 mmol/L (3.5-5.1); Protein, Total 7.1 g/dL (5.8-8.1); Sodium 136 mmol/L (136-145)
[2019-07-20] MEDS ORDERED: Dextrose 5% in Water 1,000 ML IV PRN (18:16)
[2019-07-20] MEDS ORDERED: Dextrose 50% Abboject 50 ML SYRINGE SLOW IVP PRN (18:16)
[2019-07-20] MEDS ORDERED: HumaLOG 300 UNITS/3 ML VIAL SC PRN (18:16)
[2019-07-20] MEDS: hydrALAZINE 20 MG/ML VIAL SLOW IVP PRN ×2 (19:03→23:12)
--- NOTE | 2019-07-20 19:59 | CON ---
DATE OF CONSULTATION: 07/20/2019 HISTORY OF PRESENT ILLNESS: Mr. Gray is a pleasant 73-year-old gentleman, who presented to the emergency department for severe right hip pain. While he was here, there was noted ecchymosis to the right supraorbital brow and frontal scalp as well as temporal scalp. He reports heavy fall roughly 1 week ago and this prompted CT scanning of the head, which reveals unexpectedly a large right intraventricular hemorrhage, where essentially the entire right lateral ventricle is casted with blood. None of this appears to be in the early stages of resolution, so this likely represents hemorrhage. It has been present for less than 72 hours. He does not recall any significant change in mental status nor does his family who was present at bedside. He denies any headache at present. Interestingly, his neurologic examination is at baseline. There is no sign of hydrocephalus on the CT scan at present, though with the amount of blood that is significant concern. Upon my arrival to his bedside, he is awake, alert, and oriented x4. He understands where he is, the situation. He describes me as to why he is on Plavix and aspirin. He additionally takes aspirin daily for pain control, full 325 dose, but takes this several times a day. Starting today, he has already had 3 and yesterday anywhere from 5 to 7, he just does not keep track. In the ER, he has already ordered platelets for replacement here. PHYSICAL EXAMINATION: Pupils are equal, round, and reactive to light. Extraocular movements are intact. The noted ecchymosis from the office is again seen on my examination to the right supraorbital brow and temporal scalp. This looks like it is in the mid to later stages of resolution. He has no coordination issues. He is able to do perform [id number] exam with minimal difficulty. He has great strength in bilateral upper and lower extremities. From Neurosurgery's perspective, this does not represent a surgical hemorrhage, but will need to be closely watched preferably in the ICU, particularly for the concern of development of hydrocephalus. This was discussed with the patient's family at bedside. I discussed the possibility of inserting an EVD if he become unconscious and everyone expressed their understanding. Again, he will be receiving platelets shortly. He will need to remain off Plavix and aspirin for the time being. We will repeat a CT scan this evening perhaps around 8 or 9 o'clock just to be on top of the possibility of developing hydrocephalus and then likely be scanned sometime tomorrow morning as well. Job ID: [id number]
[2019-07-20 20:14] LABS: Lactic Acid 0.9 mmol/L (0.5-2.2)
[2019-07-20 20:42] VITALS: BMI 33.7
[2019-07-20] MEDS: HumaLOG 300 UNITS/3 ML VIAL SC PRN (21:20)
[2019-07-20] MEDS: Famotidine 20 MG TAB PO SCH (21:20)
--- NOTE | 2019-07-20 21:40 | HP ---
PATIENT'S PRIMARY CARE PHYSICIAN: Gilberto Bell MD. CHIEF COMPLAINT: "I fell and could not get up." HISTORY OF PRESENT ILLNESS: Mr. Gray is a 73-year-old gentleman, who has a history of hypertension and diabetes. He also has a history of frequent falling. He says he was doing fine until this morning. His is disabled and he said he went to bring her some food from the kitchen to the bedroom and he says he is not really sure what happened. He says he slipped and fell. He did not lose consciousness. He says that after he fell, he was having severe pain in his hip and could not get up. He says prior to this he denies having any headache, but he has been feeling wobbly, but he says he has been feeling like this for the past month. He usually uses his 's walker to get around, but since he was carrying the food he was not using the walker at the time. He was brought to the ER where he was evaluated and a CT scan of the C-spine was negative. He had a CT scan of the brain, which showed a large right intraventricular hemorrhage. X-rays of the hip, pelvis and knees were negative for fracture. He was evaluated by Neurosurgery in the ER and felt that they did not need to do any emergent surgery, but need him to be monitored in the ICU. The patient denies any chest pain. No shortness of breath. No nausea, no vomiting. His only complaint is some pain in the right hip. He currently denies any headache at this time. REVIEW OF SYSTEMS: CONSTITUTIONAL: There has been no fevers, chills. No night sweats, no weight loss. HEENT: No headache. He does complain of sometimes feeling dizzy and a bit wobbly. No sore throat. He says he does have dry mouth constantly. NECK: No neck pain. No adenopathy. PULMONARY: No hemoptysis. No cough. No wheezing. CARDIOVASCULAR: He denies any chest pain. No shortness of breath. No PND. No orthopnea. GASTROINTESTINAL: No abdominal pain. No nausea. No vomiting. No change in bowels. GENITOURINARY: No urinary frequency, no hematuria, no hesitancy. MUSCULOSKELETAL: He complains of having difficulty with falling and his balance and now he has hip pain. SKIN AND INTEGUMENT: No skin changes. No rash. PSYCHIATRIC: No symptoms of anxiety or depression. PAST MEDICAL HISTORY: Significant for diabetes and hypertension. PAST SURGICAL HISTORY: He has had a cholecystectomy and surgery for ingrown toenail. ALLERGIES: NO KNOWN DRUG ALLERGIES. SOCIAL HISTORY: He is . He is a nonsmoker, nondrinker and has 2 children. FAMILY HISTORY: Negative for any heritable diseases. CURRENT MEDICATIONS: For Mr. Gray include: 1. Metformin 1000 mg daily. 2. Glyburide 2.5 mg 2 tablets daily. 3. Plavix 75 mg daily. 4. Simvastatin 40 mg daily. PHYSICAL EXAMINATION: GENERAL: He is alert and oriented. He appears to be in no acute distress. Some of the answers to his questions are a bit delayed, however. VITAL SIGNS: Blood pressure is 152/75, heart rate 87, respiratory rate of 16, temperature is 98.1. HEENT: He is normocephalic. Again, bruising on the right side of the face. However, his pupils are equal, round, and reactive. Extraocular muscles are intact. Throat, he has dry mucous membranes. He has poor dentition. NECK: There is no adenopathy. No bruits. LUNGS: Clear to auscultation. There is no wheezing, no rales, no rhonchi. CARDIOVASCULAR: He had a normal S1 and S2. There is no S3 or S4. No murmurs, clicks, or rubs. ABDOMEN: Soft, nontender, slightly obese. No rebound, no guarding, no organomegaly. EXTREMITIES: He has 1 to 2+ edema and some chronic venous stasis changes. No joint effusions. NEUROLOGIC: Grossly intact. His muscle strength is 5/5 in both his upper and lower extremities and normal size maker strength. SKIN AND INTEGUMENT: He does have some dry scaling skin on the lower extremities and some mycotic toenails. LABORATORY DATA AND IMAGING: His white blood cell count is 6.7, hemoglobin 11.9, hematocrit is 31.9, and platelet count is 181. INR is 1.1. Chemistry: Sodium 136, potassium 3.2, chloride is 99, CO2 of 17, BUN of 17, creatinine of 1.06, glucose is 131. Lactic acid was 2.9. ASSESSMENT: This is a 73-year-old gentleman, who had a fall and has developed a fairly large interventricular hemorrhage. He will be admitted to the ICU. Neurosurgery has been consulted and with regard to the intraventricular hemorrhage, this will be left to the expertise of the Neurosurgery team. 1. History of hypertension. We will continue his home medications and have p.r.n. medications as needed. 2. Diabetes mellitus. This appears to be not very well controlled. We will continue glyburide, but hold metformin at this time, and place him on a sliding scale insulin. 3. Plavix and all anti-platelet agents will be held. He was given 6 units of single donor platelets in the ER due to a history of excessive aspirin intake and concern for significant platelet dysfunction. 4. He appears to be volume depleted. We will go ahead and give a liter of saline over several hours and then reassess in the a.m. We will be careful not to volume expand him significantly. Job ID: [id number]
--- NOTE | 2019-07-20 23:29 | CT ---
Exam: Brain CT without IV contrast: HISTORY: Follow-up intraventricular hemorrhage FINDINGS: Extensive right-sided ventricular hemorrhage involving the right lateral ventricle as well as the thi rd ventricle and minimal hemorrhage in the left lateral ventricle occipital horn. No significant mass effect. No evidence for other new hemorrhage. IMPRESSION: Extensive stable right ventricular hemorrhage with some hemorrhage in the left lateral ventricle occi pital horn and third ventricle. No intraparenchymal hemorrhage or extra-axial hemorrhage.
[2019-07-21] MEDS: Labetalol HCl 100 MG/20 ML VIAL SLOW IVP PRN (02:52)
[2019-07-21] MEDS: HumaLOG 300 UNITS/3 ML VIAL SC PRN ×5 (05:03→20:47)
[2019-07-21 07:10] LABS: Anion Gap 20 mmol/L (10-20); BUN (Urea Nitrogen) 15 mg/dL (8.4-25.7); Calc. Creatinine Clearance 98 mL/min (70-130); Calcium 8.6 mg/dL (7.8-10.44); Carbon Dioxide 17 mmol/L (23-31); Chloride 101 mmol/L (98-107); Estimated GFR-MDRD 65; Glucose 364 mg/dL (83-110); Sodium 136 mmol/L (136-145)
[2019-07-21 07:18] LABS: Potassium 2.4 mmol/L (3.5-5.1)
[2019-07-21] MEDS ORDERED: Magnesium Oxide 400 MG TAB PO PRN ×2 (07:36)
[2019-07-21] MEDS ORDERED: CCU ELECTROLYTE REPLACEMENT PROTOCOL FS PRN (07:36)
[2019-07-21] MEDS ORDERED: Potassium Chloride 40 MEQ in Premix Bag 1 BAG IVPB PRN (07:36)
[2019-07-21] MEDS ORDERED: Potassium Phosphate 9 MMOL in Sodium Chloride 0.9% 100 ML IVPB PRN (07:36)
[2019-07-21] MEDS ORDERED: Potassium Phosphate 12 MMOL in Sodium Chloride 0.9% 250 ML 250 ML IV PRN (07:36)
[2019-07-21] MEDS ORDERED: Magnesium 2 GM/50 ML 2 GM in Premix Bag 1 BAG IVPB PRN (07:36)
[2019-07-21] MEDS ORDERED: Potassium Phosphate 15 MMOL in Sodium Chloride 0.9% 250 ML 250 ML IV PRN (07:36)
[2019-07-21] MEDS ORDERED: PHOS-NAK 1 PKT PACK PO PRN ×2 (07:36)
[2019-07-21] MEDS ORDERED: Potassium Chloride 40 MEQ in Sodium Chloride 0.9% 250 ML 250 ML IVPB PRN (07:36)
[2019-07-21] MEDS: Potassium Chloride 20 MEQ TAB PO PRN (08:14)
[2019-07-21 08:29] LABS: #Basophils 0.1 thou/uL (0.0-0.2); #Eosinphils 0.1 thou/uL (0.0-0.7); #Lymphocytes 1.7 thou/uL (1.20-3.40); #Monocytes 0.7 thou/uL (0.11-0.59); #Neutrophils 4.4 thou/uL (1.40-6.50); %Basophils 0.9 % (0.0-1.0); %Eosinophils 0.8 % (0.0-10.0); %Lymphocytes 24.6 % (21.0-51.0); %Monocytes 10.1 % (0.0-10.0); %Neutrophils 63.6 % (42.0-75.0); Hemoglobin 11.4 g/dL (14.0-18.0); MDiff Complete? YES; Macrocytosis SLIGHT = 6-15 cells (100X) (0-5/hpf); Mean Corpuscular HGB CONC 36.7 g/dL (32.0-36.0); Mean Corpuscular Hemoglobin 37.3 pg (27.0-31.0); Platelet Count 202 thou/uL (130-400); RBC Distribution Width 12.9 % (11.5-14.5); Red Blood Cell (RBC) Count 3.05 mill/uL (4.70-6.10)
[2019-07-21] MEDS ORDERED: Thiamine 100 MG TAB PO SCH (10:00)
[2019-07-21] MEDS ORDERED: Cyanocobalamin 1000 MCG/ML VIAL IM SCH (10:00)
[2019-07-21] MEDS ORDERED: Magnesium 2 GM/50 ML 2 GM in Premix Bag 1 BAG IVPB SCH (10:15)
[2019-07-21] MEDS ORDERED: Insulin Glargine 20 UNITS in Pre-Filled Syringe 1 EACH SC SCH (10:15)
--- NOTE | 2019-07-21 10:17 | CON ---
DATE OF CONSULTATION: 07/21/2019 SERVICE: Pulmonary Medicine. REASON FOR CONSULTATION: ICU patient. HISTORY OF PRESENT ILLNESS: The patient is a 73-year-old white male, who sustained a fall 4 days ago. This was in his usual state of health at home. He injured his hip. As such, he presented to the emergency department. He had significant ecchymosis over his face. As such, a CT of the head was performed. This demonstrated extensive intraventricular hemorrhage. All hip x-rays were unremarkable. The patient denies having headache, fevers, chills, nausea, vomiting, or diarrhea. Otherwise, he is in his usual state of health. PAST MEDICAL HISTORY: 1. Type 2 diabetes mellitus. 2. Hypertension. 3. Intraventricular hemorrhage following a traumatic fall. PAST SURGICAL HISTORY: 1. Cholecystectomy. 2. Toe surgery for ingrown toenail. SOCIAL HISTORY: Negative for tobacco or illicit drug use. He has 2 children. He admits to using 6 to 8 ounces of vodka on a daily basis. It took him over 5 minutes for him to tell me this. He has no exposure to chemicals, dust, asbestos, or tuberculosis. FAMILY HISTORY: Noncontributory. ALLERGIES: NO KNOWN DRUG ALLERGIES. MEDICATIONS: List of his inpatient medications were reviewed. No specific updates were made at this time. REVIEW OF SYSTEMS: General, head, ears, eyes, nose, throat, cardiovascular, respiratory, GI, , musculoskeletal, neurologic, and skin is negative except as mentioned in the HPI. PHYSICAL EXAMINATION: VITAL SIGNS: Afebrile, pulse 69, blood pressure 182/89, respirations 12, and saturation 100% on room air. GENERAL: The patient is awake and alert, in no apparent distress. LUNGS: Very good air entry. No prolonged expiratory phase. Wheezing, rhonchi , or crackles are appreciated. HEART: Normal rate, regular. ABDOMEN: Soft, nontender, and nondistended. Bowel sounds are positive. MUSCULOSKELETAL: No cyanosis or clubbing. No pitting in bilateral lower extremities. NEUROLOGIC: Grossly nonfocal. LABORATORY DATA: WBC 7.0, hemoglobin 11.4, and platelets 202,000. INR 1.1. Potassium 2.4. Basic metabolic profile is otherwise unremarkable/stable. Creatinine 1.11 and likely at baseline. Folate and B12 are both low. Liver function studies are essentially unremarkable. IMAGIN. CT of the brain demonstrates a large right-sided intraventricular hemorrhage. 2. Chest x-ray demonstrates minimal atelectasis in the right base. Otherwise, no acute cardiopulmonary abnormality appreciated. 3. Knee x-ray, pelvic x-ray, and hip x-ray are without acute osseous abnormality. 4. C-spine demonstrates no evidence of subluxation, or osseous abnormality. ASSESSMENT: 1. Intraventricular hemorrhage. 2. Type 2 diabetes mellitus. 3. Alcohol abuse. 4. Hypokalemia. 5. Electrolyte abnormalities. DISCUSSION AND PLAN: I will replace the patient's potassium aggressively. I will check a magnesium and phosphorus with tomorrow morning's laboratories. We will replace B12 and folate. I will put him on ASE scale. I am going to change him over to a clear liquid diet as the patient has significant potential for getting worse and not better. In the event that he gets worse, I certainly do not want to have any solid particles in his stomach. Pulmonary/Critical Care will continue to follow along while he remains in this location. 70 minutes have been devoted to this patient in various activities. I personally reviewed all imaging studies and laboratory data noted within this document. For fifty percent of this time, I was interacting with the patient at the bedside or coordinating care with the care team. For the remainder of the time I was immediately available to the patient in the hospital unit. Job ID: [id number] [facility]ENTER[facility]eg[facility]
[2019-07-21] MEDS: Potassium Chloride 20 MEQ TAB PO SCH ×2 (11:13→14:59)
[2019-07-21] MEDS: Famotidine 20 MG TAB PO SCH ×2 (11:13→20:49)
[2019-07-21] MEDS: Acetaminophen 325 MG TAB PO PRN (11:32)
--- NOTE | 2019-07-21 15:26 | PDOC.HOSPP ---
- Subjective Encounter Date: 07/21/19 Encounter Time: 10:30 Subjective: pt up in bed no complains - Objective Vital Signs & Weight: Vital Signs (12 hours) Temp Pulse Ox 07/21/19 12:00 98.5 F 07/21/19 08:00 98.0 F 99 07/21/19 04:00 98.1 F Weight Weight 249 lb 1.957 oz Most Recent Monitor Data Heart Rate from ECG 66 NIBP 155/83 NIBP BP-Mean 107 Respiration from ECG 19 SpO2 98 I&O: 07/20/19 07/21/19 07/22/19 06:59 06:59 06:59 Intake Total 850 1320 Output Total 775 1035 Balance 75 285 Result Diagrams: 07/21/19 06:28 07/21/19 06:28 Additional Labs: Accuchecks 07/21/19 07/21/19 07/20/19 11:30 05:05 21:18 POC Glucose 416 H 410 H 330 H Hospitalist ROS - Review of Systems Respiratory: denies: cough, dry, shortness of breath, hemoptysis, SOB with excertion, pleuritic pain, sputum, wheezing, other Cardiovascular: denies: chest pain, palpitations, orthopnea, paroxysmal noc. dyspnea, edema, light headedness, other Gastrointestinal: denies: nausea, vomiting, abdominal pain, diarrhea, constipation, melena, hematochezia, other - Medication Medications: Active Medications Generic Name Dose Route Start Last Admin Trade Name Freq PRN Reason Stop Dose Admin Acetaminophen 650 mg 07/20/19 18:16 07/21/19 11:32 Tylenol PO 650 mg Q4H PRN Administration Headache/Fever/Mild Pain (1-3) Famotidine 20 mg 07/20/19 21:00 07/21/19 11:13 Pepcid PO 20 mg BID CHASE Administration Hydralazine HCl 10 mg 07/20/19 18:16 07/20/19 23:12 Apresoline SLOW IVP 10 mg Q4H PRN Administration SBP Greater Than 170 Magnesium Sulfate 2 gm/ Device 50 mls @ 50 mls/hr 07/21/19 07:36 07/21/19 11: 16 IVPB 50 mls ASDIR PRN Administration MAGNESIUM < 1.4 Insulin Human Lispro 0 units 07/20/19 18:16 07/21/19 11:29 Humalog SC 10 unit .MODERATE SLIDING SC PRN Administration Moderate Correctional Scale Labetalol HCl 10 mg 07/21/19 00:12 07/21/19 02:52 Normodyne SLOW IVP 10 mg Q4H PRN Administration TO KEEP SBP<160 Potassium Chloride 40 meq 07/21/19 07:36 07/21/19 08:14 K-Dur PO 40 meq ASDIR PRN Administration FOR SERUM K+ 2.5 - 3.5 Sodium Chloride 10 ml 07/21/19 09:00 07/21/19 11:13 Flush - Normal Saline IVF 10 ml Q12HR CHASE Administration - Exam Neck: negative: supple, symmetric, no JVD, no thyromegaly, no lymphadenopathy, no carotid bruit, JVD Heart: negative: RRR, no murmur, no gallops, no rubs, normal peripheral pulses, irregular, diminshed peripheral pulses, murmur present, II/IV, III/IV Respiratory: negative: CTAB, no wheezes, no rales, no ronchi, normal chest expansion, no tachypnea, normal percussion, rales, rhonchi, tachypneic, wheezes Hosp A/P (1) Intraventricular hemorrhage Code(s): I61.5 - NONTRAUMATIC INTRACEREBRAL HEMORRHAGE, INTRAVENTRICULAR Status: Acute (2) AURELIANO (acute kidney injury) Code(s): N17.9 - ACUTE KIDNEY FAILURE, UNSPECIFIED Status: Acute (3) Acute metabolic encephalopathy Code(s): G93.41 - METABOLIC ENCEPHALOPATHY Status: Acute (4) Alcohol abuse Code(s): F10.10 - ALCOHOL ABUSE, UNCOMPLICATED Status: Acute (5) Dehydration Code(s): E86.0 - DEHYDRATION Status: Acute (6) DM2 (diabetes mellitus, type 2) Status: Chronic (7) Fall Code(s): W19.XXXA - UNSPECIFIED FALL, INITIAL ENCOUNTER Status: Acute - Plan will put pt on ASE protocol, thiamine and folic acid. [facility]. pt uses walker and has been having multiple falls.
--- NOTE | 2019-07-21 15:40 | PRG ---
DATE OF SERVICE: 07/21/2019 SUBJECTIVE: Mr. Gray was admitted yesterday after CT scan revealed a large right-sided intraventricular hemorrhage, although he appeared to be more or less asymptomatic. This remains to be the case. This morning, he is minimally symptomatic, although he is hypokalemic and this is being corrected by Medicine Service. Additionally, he has a rather high blood glucose levels and this is being corrected as well. When I see him this morning, he is essentially stable to our discussion yesterday, though does not recall being specifically, but does recall some of the bits of our conversation. PLAN: We are going to repeat a CT scan around 4:30 or 5:00 this afternoon, so that we have a 24-hour span between the first and second scan. We can better assess the progression or presentation of any possible hydrocephalus. Otherwise, the Neurosurgery would likely sign off tomorrow with followup planned. Job ID: [id number]
--- NOTE | 2019-07-21 16:28 | CT ---
Brain CT without IV contrast: HISTORY: Follow-up intraventricular hemorrhage COMPARISON: 07/20/2019 FINDINGS: Stable intraventricular hemorrhage is again noted. No mass effect or midline shift. No evidence for n ew hemorrhage. IMPRESSION: Stable intraventricular hemorrhage.
[2019-07-21] MEDS: Atorvastatin Calcium 20 MG TAB PO SCH (20:48)
[2019-07-21] MEDS: hydrALAZINE 20 MG/ML VIAL SLOW IVP PRN (20:48)
[2019-07-22] MEDS: Acetaminophen 325 MG TAB PO PRN ×3 (01:05→21:48)
[2019-07-22] MEDS: hydrALAZINE 20 MG/ML VIAL SLOW IVP PRN ×2 (01:05→08:51)
[2019-07-22 07:13] LABS: Hemoglobin A1c 8.6 % (4.0-6.0)
[2019-07-22 07:29] LABS: Anion Gap 18 mmol/L (10-20); BUN (Urea Nitrogen) 13 mg/dL (8.4-25.7); Calc. Creatinine Clearance 115 mL/min (70-130); Calcium 8.5 mg/dL (7.8-10.44); Carbon Dioxide 19 mmol/L (23-31); Chloride 101 mmol/L (98-107); Estimated GFR-MDRD 79; Glucose 342 mg/dL (83-110); Magnesium 1.9 mg/dL (1.6-2.6); Phosphorus 2.7 mg/dL (2.3-4.7); Sodium 135 mmol/L (136-145)
[2019-07-22 07:32] LABS: Potassium 2.8 mmol/L (3.5-5.1)
--- NOTE | 2019-07-22 07:41 | PRG ---
DATE OF SERVICE: 07/22/2019 Mr. Gray is now on hospital day 3. He was admitted predominantly for right hip pain. A CT examination performed at the time of his admission revealed intraventricular blood with acute to subacute products. He has had a repeat CT examination since his admission, which shows that the blood product is stable. Neurologically, he is at baseline. At this time, there are no plans to treat him from a neurosurgical perspective. There is no evidence of hydrocephalus. After he recovers from the events of this hospitalization, he will be re-evaluated in the outpatient setting to try to further determine the source of this hemorrhage. Job ID: [id number]
--- NOTE | 2019-07-22 08:15 | PRG ---
DATE OF SERVICE: 07/22/2019 Mr. Gray this morning is still in the ICU, but doing quite well. CT scan from yesterday afternoon looked stable to the other two that were already performed. At this point, he can be transferred from the ICU to the Stroke floor or other floor at any time whenever the Primary Team feels comfortable doing so. From our perspective, he stabilized to a point where we are not concerned about any other additional interventions and we will sign off at this time with outpatient followup at 4 to 6 weeks. Job ID: [id number]
[2019-07-22] MEDS: Thiamine 100 MG TAB PO SCH (08:34)
[2019-07-22] MEDS: FLUoxetine HCl 20 MG CAP PO SCH (08:35)
[2019-07-22] MEDS: Bupropion 150 MG XL TAB PO SCH (08:35)
[2019-07-22] MEDS: Potassium Chloride 20 MEQ TAB PO PRN (08:36)
[2019-07-22] MEDS: Folic Acid 1 MG TAB PO SCH (08:36)
[2019-07-22] MEDS: Famotidine 20 MG TAB PO SCH ×2 (08:36→21:48)
[2019-07-22] MEDS: HumaLOG 300 UNITS/3 ML VIAL SC SCH ×3 (08:37→21:49)
[2019-07-22] MEDS: Cyanocobalamin (Vitamin B-12) 1,000 MCG TAB PO SCH (08:51)
[2019-07-22] MEDS: Insulin Glargine 20 UNITS in Pre-Filled Syringe 1 EACH SC SCH (08:52)
[2019-07-22] MEDS ORDERED: INSULIN DETEMIR 15 UNIT SQ SCH (09:00)
--- NOTE | 2019-07-22 10:33 | PRG ---
DATE OF SERVICE: 07/22/2019 SERVICE: Pulmonary Medicine. INTERVAL HISTORY: The patient is doing really well from respiratory standpoint. Breathing comfortably. He denies any chest discomfort, nausea, vomiting, fevers, or chills. Otherwise, he had an uneventful evening. Neurologically, he has been stable. PHYSICAL EXAMINATION: VITAL SIGNS: Afebrile, pulse 75, blood pressure 178/79, respirations 19, saturation 100%, currently on room air. GENERAL: The patient is awake and alert, in no apparent distress. LUNGS: Decent air entry. No prolonged expiratory phase. No wheezing or rhonchi are present. HEART: Normal rate and regular. ABDOMEN: Soft, nontender, nondistended. Bowel sounds are positive. MUSCULOSKELETAL: No cyanosis or clubbing. No pitting in the bilateral lower extremities. NEUROLOGIC: Grossly nonfocal. LABORATORY DATA: Potassium 2.8, sodium 135. Basic metabolic profile; magnesium and phosphorus are otherwise unremarkable. IMAGING: CT of the brain demonstrates stable intraventricular hemorrhage. ASSESSMENT: 1. Intraventricular hemorrhage. 2. Type 2 diabetes mellitus. 3. Alcohol abuse. 4. Hypokalemia, improving. DISCUSSION AND PLAN: We will once again aggressively replace the potassium. We will follow his ASE scale. We will continue our vitamins. At this point, he is stable for transition out of the ICU to the stroke unit. I will advance his diet. When he arrives on the floor, he will have no further requirements for inpatient Pulmonary Critical Care opinion and I will sign off. If he has a significant decline in mental status, please give us a phone call. Job ID: [id number]
[2019-07-22] MEDS: HumaLOG 300 UNITS/3 ML VIAL SC PRN ×2 (11:25→18:47)
[2019-07-22] MEDS: Potassium Chloride 20 MEQ TAB PO SCH ×3 (11:28→18:49)
[2019-07-22] MEDS: Atorvastatin Calcium 20 MG TAB PO SCH (21:48)
[2019-07-22] MEDS: Insulin Glargine 8 UNITS in Pre-Filled Syringe 1 EACH SC SCH (21:49)
[2019-07-23] MEDS: hydrALAZINE 20 MG/ML VIAL SLOW IVP PRN ×3 (00:19→16:04)
[2019-07-23] MEDS: Acetaminophen 325 MG TAB PO PRN ×4 (02:02→16:02)
[2019-07-23 05:50] LABS: Anion Gap 14 mmol/L (10-20); BUN (Urea Nitrogen) 13 mg/dL (8.4-25.7); Calc. Creatinine Clearance 122 mL/min (70-130); Calcium 8.8 mg/dL (7.8-10.44); Carbon Dioxide 21 mmol/L (23-31); Chloride 103 mmol/L (98-107); Estimated GFR-MDRD 84; Glucose 277 mg/dL (83-110); Sodium 135 mmol/L (136-145)
[2019-07-23] MEDS: Labetalol HCl 100 MG/20 ML VIAL SLOW IVP PRN ×3 (05:50→21:19)
[2019-07-23] MEDS: Thiamine 100 MG TAB PO SCH (09:24)
[2019-07-23] MEDS: Folic Acid 1 MG TAB PO SCH (09:24)
[2019-07-23] MEDS: Famotidine 20 MG TAB PO SCH ×2 (09:24→21:21)
[2019-07-23] MEDS: Bupropion 150 MG XL TAB PO SCH (09:24)
[2019-07-23] MEDS: FLUoxetine HCl 20 MG CAP PO SCH (09:24)
[2019-07-23] MEDS: Cyanocobalamin (Vitamin B-12) 1,000 MCG TAB PO SCH (09:25)
[2019-07-23] MEDS: Insulin Glargine 20 UNITS in Pre-Filled Syringe 1 EACH SC SCH (09:25)
[2019-07-23] MEDS: HumaLOG 300 UNITS/3 ML VIAL SC SCH ×3 (09:25→21:20)
--- NOTE | 2019-07-23 09:57 | PDOC.HOSPP ---
- Subjective Encounter Date: 07/22/19 Encounter Time: 15:00 Subjective: pt up in bed no complains - Objective Vital Signs & Weight: Vital Signs (12 hours) Temp Pulse Resp BP BP Pulse Ox 07/23/19 09:35 73 186/86 H 07/23/19 08:41 97 07/23/19 07:38 97.7 F 70 20 179/92 H 97 07/23/19 05:50 80 175/81 H 07/23/19 04:37 74 180/81 H 07/23/19 03:41 97.6 F 75 18 177/83 H 95 07/23/19 01:02 77 16 143/63 H 07/23/19 00:19 72 171/81 H 07/22/19 23:56 97.8 F 72 22 H 163/88 H 96 Weight Weight 249 lb 1.957 oz Most Recent Monitor Data Heart Rate from ECG 90 NIBP 117/88 NIBP BP-Mean 97 Respiration from ECG 18 SpO2 100 I&O: 07/22/19 07/23/19 07/24/19 06:59 06:59 06:59 Intake Total 2398 460 Output Total 1385 300 175 Balance 1013 160 -175 Result Diagrams: 07/21/19 06:28 07/23/19 04:49 Additional Labs: Accuchecks 07/23/19 07/22/19 07/22/19 06:19 20:06 17:24 POC Glucose 289 H 348 H 246 H 07/22/19 11:25 POC Glucose 351 H Hospitalist ROS - Review of Systems Cardiovascular: denies: chest pain, palpitations, orthopnea, paroxysmal noc. dyspnea, edema, light headedness, other Gastrointestinal: denies: nausea, vomiting, abdominal pain, diarrhea, constipation, melena, hematochezia, other Genitourinary: denies: dysuria, frequency, incontinence, hematuria, retention, other - Medication Medications: Active Medications Generic Name Dose Route Start Last Admin Trade Name Freq PRN Reason Stop Dose Admin Acetaminophen 650 mg 07/20/19 18:16 07/23/19 09:24 Tylenol PO 650 mg Q4H PRN Administration Headache/Fever/Mild Pain (1-3) Atorvastatin Calcium 20 mg 07/21/19 21:00 07/22/19 21:48 Lipitor PO 20 mg HS CHASE Administration Bupropion HCl 150 mg 07/22/19 09:00 07/23/19 09:24 Wellbutrin Xl PO 150 mg DAILY CHASE Administration Cyanocobalamin 1,000 mcg 07/22/19 09:00 07/23/19 09:25 Vitamin B-12 PO 1,000 mcg DAILY CHASE Administration Famotidine 20 mg 07/20/19 21:00 07/23/19 09:24 Pepcid PO 20 mg BID CHASE Administration Fluoxetine HCl 40 mg 07/22/19 09:00 07/23/19 09:24 Prozac PO 40 mg DAILY CHASE Administration Folic Acid 1 mg 07/22/19 09:00 07/23/19 09:24 Folvite PO 1 mg DAILY CHASE Administration Hydralazine HCl 10 mg 07/20/19 18:16 07/23/19 04:37 Apresoline SLOW IVP 10 mg Q4H PRN Administration SBP Greater Than 170 Insulin Glargine 20 units/ 0.2 mls @ 0 mls/hr 07/22/19 09:00 07/23/19 09:25 Miscellaneous Medication SC 0.2 mls QAM CHASE Administration Insulin Glargine 8 units/ 0.08 mls @ 0 mls/hr 07/22/19 21:00 07/22/19 21:49 Miscellaneous Medication SC 0.08 mls HS CHASE Administration Insulin Human Lispro 0 units 07/21/19 17:45 07/22/19 18:47 Humalog SC 6 units .AGGRESSIVE SLIDING PRN Administration AGGRESSIVE SLIDING SCALE Protocol Insulin Human Lispro 6 units 07/22/19 09:00 07/23/19 09:25 Humalog SC 6 unit TID CHASE Administration Labetalol HCl 10 mg 07/21/19 00:12 07/23/19 09:35 Normodyne SLOW IVP 10 mg Q4H PRN Administration TO KEEP SBP<160 Sodium Chloride 10 ml 07/21/19 09:00 07/23/19 09:25 Flush - Normal Saline IVF 10 ml Q12HR CHASE Administration Sodium Chloride 10 ml 07/21/19 07:37 07/23/19 05:51 Flush - Normal Saline IVF 10 ml PRN PRN Administration Saline Flush Thiamine HCl 100 mg 07/22/19 09:00 07/23/19 09:24 Thiamine PO 100 mg DAILY CHASE Administration - Exam Neck: negative: supple, symmetric, no JVD, no thyromegaly, no lymphadenopathy, no carotid bruit, JVD Heart: negative: RRR, no murmur, no gallops, no rubs, normal peripheral pulses, irregular, diminshed peripheral pulses, murmur present, II/IV, III/IV Respiratory: negative: CTAB, no wheezes, no rales, no ronchi, normal chest expansion, no tachypnea, normal percussion, rales, rhonchi, tachypneic, wheezes Hosp A/P (1) Intraventricular hemorrhage Code(s): I61.5 - NONTRAUMATIC INTRACEREBRAL HEMORRHAGE, INTRAVENTRICULAR Status: Acute (2) AURELIANO (acute kidney injury) Code(s): N17.9 - ACUTE KIDNEY FAILURE, UNSPECIFIED Status: Acute (3) Acute metabolic encephalopathy Code(s): G93.41 - METABOLIC ENCEPHALOPATHY Status: Acute (4) Alcohol abuse Code(s): F10.10 - ALCOHOL ABUSE, UNCOMPLICATED Status: Acute (5) Dehydration Code(s): E86.0 - DEHYDRATION Status: Acute (6) DM2 (diabetes mellitus, type 2) Status: Chronic (7) Fall Code(s): W19.XXXA - UNSPECIFIED FALL, INITIAL ENCOUNTER Status: Acute - Plan will put pt on ASE protocol, thiamine and folic acid. will [facility] to [facility]. PT/OT for eval. pt uses walker and has been having multiple falls. 07/22 pt up in bed eating, no new complains will monitor. continue current meds. will titrate his insulin for better blood sugar control.
[2019-07-23] MEDS ORDERED: Amlodipine 10 MG TAB PO SCH ×2 (10:00→10:30)
[2019-07-23] MEDS ORDERED: Losartan 25 MG TAB PO SCH (10:30)
[2019-07-23] MEDS ORDERED: Triamterene/Hydrochlorothiazide 37.5 mg/25 mg Tablet PO SCH (10:30)
[2019-07-23] MEDS: HumaLOG 300 UNITS/3 ML VIAL SC PRN (10:45)
[2019-07-23] MEDS ORDERED: Potassium Chloride 10 MEQ in Premix Bag 1 BAG IVPB SCH ×2 (11:45→14:30)
[2019-07-23] MEDS: metFORMIN 500 MG TAB PO SCH (16:02)
--- NOTE | 2019-07-23 16:56 | PDOC.HOSPP ---
- Subjective Encounter Date: 07/23/19 Encounter Time: 10:15 Subjective: pt up in bed no complains - Objective Vital Signs & Weight: Vital Signs (12 hours) Temp Pulse Resp BP BP Pulse Ox 07/23/19 16:04 76 170/81 H 07/23/19 15:34 97.7 F 78 20 170/81 H 94 L 07/23/19 13:10 66 07/23/19 11:08 97.7 F 66 20 169/83 H 95 07/23/19 10:45 69 173/92 H 07/23/19 09:35 73 186/86 H 07/23/19 08:41 97 07/23/19 07:38 97.7 F 70 20 179/92 H 97 07/23/19 05:50 80 175/81 H Weight Weight 249 lb 1.957 oz Most Recent Monitor Data Heart Rate from ECG 90 NIBP 117/88 NIBP BP-Mean 97 Respiration from ECG 18 SpO2 100 I&O: 07/22/19 07/23/19 07/24/19 06:59 06:59 06:59 Intake Total 2398 460 Output Total 1385 300 175 Balance 1013 160 -175 Result Diagrams: 07/21/19 06:28 07/23/19 04:49 Additional Labs: Accuchecks 07/23/19 07/23/19 07/22/19 10:41 06:19 20:06 POC Glucose 395 H 289 H 348 H 07/22/19 17:24 POC Glucose 246 H Hospitalist ROS - Review of Systems Respiratory: denies: cough, dry, shortness of breath, hemoptysis, SOB with excertion, pleuritic pain, sputum, wheezing, other Cardiovascular: denies: chest pain, palpitations, orthopnea, paroxysmal noc. dyspnea, edema, light headedness, other Gastrointestinal: denies: nausea, vomiting, abdominal pain, diarrhea, constipation, melena, hematochezia, other - Medication Medications: Active Medications Generic Name Dose Route Start Last Admin Trade Name Freq PRN Reason Stop Dose Admin Acetaminophen 650 mg 07/20/19 18:16 07/23/19 16:02 Tylenol PO 650 mg Q4H PRN Administration Headache/Fever/Mild Pain (1-3) Atorvastatin Calcium 20 mg 07/21/19 21:00 07/22/19 21:48 Lipitor PO 20 mg HS CHASE Administration Bupropion HCl 150 mg 07/22/19 09:00 07/23/19 09:24 Wellbutrin Xl PO 150 mg DAILY CHASE Administration Cyanocobalamin 1,000 mcg 07/22/19 09:00 07/23/19 09:25 Vitamin B-12 PO 1,000 mcg DAILY CHASE Administration Famotidine 20 mg 07/20/19 21:00 07/23/19 09:24 Pepcid PO 20 mg BID CHASE Administration Fluoxetine HCl 40 mg 07/22/19 09:00 07/23/19 09:24 Prozac PO 40 mg DAILY CHASE Administration Folic Acid 1 mg 07/22/19 09:00 07/23/19 09:24 Folvite PO 1 mg DAILY CHASE Administration Hydralazine HCl 10 mg 07/20/19 18:16 07/23/19 16:04 Apresoline SLOW IVP 10 mg Q4H PRN Administration SBP Greater Than 170 Insulin Glargine 20 units/ 0.2 mls @ 0 mls/hr 07/22/19 09:00 07/23/19 09:25 Miscellaneous Medication SC 0.2 mls QAM CHASE Administration Insulin Glargine 8 units/ 0.08 mls @ 0 mls/hr 07/22/19 21:00 07/22/19 21:49 Miscellaneous Medication SC 0.08 mls HS CHASE Administration Insulin Human Lispro 0 units 07/21/19 17:45 07/23/19 10:45 Humalog SC 13 units .AGGRESSIVE SLIDING PRN Administration AGGRESSIVE SLIDING SCALE Protocol Insulin Human Lispro 6 units 07/22/19 09:00 07/23/19 16:02 Humalog SC 6 unit TID CHASE Administration Labetalol HCl 10 mg 07/21/19 00:12 07/23/19 09:35 Normodyne SLOW IVP 10 mg Q4H PRN Administration TO KEEP SBP<160 Metformin HCl 1,000 mg 07/23/19 17:00 07/23/19 16:02 Glucophage PO 1,000 mg BID-WM CHASE Administration Sodium Chloride 10 ml 07/21/19 09:00 07/23/19 09:25 Flush - Normal Saline IVF 10 ml Q12HR CHASE Administration Sodium Chloride 10 ml 07/21/19 07:37 07/23/19 05:51 Flush - Normal Saline IVF 10 ml PRN PRN Administration Saline Flush Thiamine HCl 100 mg 07/22/19 09:00 07/23/19 09:24 Thiamine PO 100 mg DAILY CHASE Administration - Exam ENT: normocephalic atraumatic Heart: RRR, no murmur Respiratory: CTAB, no wheezes Gastrointestinal: soft, non-tender, non-distended Hosp A/P (1) Intraventricular hemorrhage Code(s): I61.5 - NONTRAUMATIC INTRACEREBRAL HEMORRHAGE, INTRAVENTRICULAR Status: Acute (2) AURELIANO (acute kidney injury) Code(s): N17.9 - ACUTE KIDNEY FAILURE, UNSPECIFIED Status: Acute (3) Acute metabolic encephalopathy Code(s): G93.41 - METABOLIC ENCEPHALOPATHY Status: Acute (4) Alcohol abuse Code(s): F10.10 - ALCOHOL ABUSE, UNCOMPLICATED Status: Acute (5) Dehydration Code(s): E86.0 - DEHYDRATION Status: Acute (6) DM2 (diabetes mellitus, type 2) Status: Chronic (7) Fall Code(s): W19.XXXA - UNSPECIFIED FALL, INITIAL ENCOUNTER Status: Acute - Plan will put pt on ASE protocol, thiamine and folic acid. will continue to [facility]. PT/OT for eval. pt uses walker and has been having multiple falls. 07/22 pt up in bed eating, no new complains will monitor. continue current meds. will titrate his insulin for better blood sugar control. 07/23 pt up in bed no complains, will adjust bp meds and insulin. will get PT to see pt possible rehab.
[2019-07-23] MEDS ORDERED: cloNIDine 0.1 MG TAB PO SCH (17:00)
[2019-07-23] MEDS ORDERED: HumaLOG 300 UNITS/3 ML VIAL SC SCH (17:00)
[2019-07-23] MEDS: glyBURIDE 5 MG TAB PO SCH (21:21)
[2019-07-23] MEDS: Atorvastatin Calcium 20 MG TAB PO SCH (21:21)
[2019-07-23] MEDS: Insulin Glargine 8 UNITS in Pre-Filled Syringe 1 EACH SC SCH (21:21)
[2019-07-24 05:20] LABS: Anion Gap 17 mmol/L (10-20); BUN (Urea Nitrogen) 11 mg/dL (8.4-25.7); Calc. Creatinine Clearance 126 mL/min (70-130); Carbon Dioxide 22 mmol/L (23-31); Chloride 95 mmol/L (98-107); Estimated GFR-MDRD 88; Glucose 319 mg/dL (83-110); Sodium 131 mmol/L (136-145)
[2019-07-24 05:23] LABS: Potassium 2.8 mmol/L (3.5-5.1)
[2019-07-24] MEDS ORDERED: Potassium Chloride 20 MEQ TAB PO SCH (07:45)
[2019-07-24] MEDS ORDERED: Potassium Chloride 20 MEQ in Premix Bag 1 BAG IVPB SCH ×2 (07:45→08:15)
[2019-07-24] MEDS: glyBURIDE 5 MG TAB PO SCH ×2 (08:15→22:15)
[2019-07-24] MEDS: metFORMIN 500 MG TAB PO SCH ×2 (08:15→17:27)
[2019-07-24] MEDS: Thiamine 100 MG TAB PO SCH (08:17)
[2019-07-24] MEDS: FLUoxetine HCl 20 MG CAP PO SCH (08:17)
[2019-07-24] MEDS: Losartan 25 MG TAB PO SCH (08:17)
[2019-07-24] MEDS: Famotidine 20 MG TAB PO SCH ×2 (08:18→22:15)
[2019-07-24] MEDS: Amlodipine 10 MG TAB PO SCH (08:18)
[2019-07-24] MEDS: Tamsulosin HCl 0.4 MG CAP PO SCH (08:18)
[2019-07-24] MEDS: Bupropion 150 MG XL TAB PO SCH (08:18)
[2019-07-24] MEDS: Cyanocobalamin (Vitamin B-12) 1,000 MCG TAB PO SCH (08:18)
[2019-07-24] MEDS: Folic Acid 1 MG TAB PO SCH (08:18)
[2019-07-24] MEDS: Triamterene/Hydrochlorothiazide 37.5 mg/25 mg Tablet PO SCH (08:19)
[2019-07-24] MEDS: HumaLOG 300 UNITS/3 ML VIAL SC SCH ×3 (08:20→22:15)
[2019-07-24] MEDS: Insulin Glargine 20 UNITS in Pre-Filled Syringe 1 EACH SC SCH (08:21)
[2019-07-24] MEDS: Acetaminophen 325 MG TAB PO PRN (08:48)
[2019-07-24 11:15] LABS: #Basophils 0.1 thou/uL (0.0-0.2); #Eosinphils 0.1 thou/uL (0.0-0.7); #Lymphocytes 1.5 thou/uL (1.20-3.40); #Monocytes 0.7 thou/uL (0.11-0.59); #Neutrophils 5.7 thou/uL (1.40-6.50); %Basophils 0.7 % (0.0-1.0); %Lymphocytes 18.3 % (21.0-51.0); %Monocytes 8.5 % (0.0-10.0); %Neutrophils 71.5 % (42.0-75.0); Hemoglobin 13.5 g/dL (14.0-18.0); Mean Corpuscular HGB CONC 36.1 g/dL (32.0-36.0); Mean Corpuscular Hemoglobin 36.6 pg (27.0-31.0); Mean Platelet Volume 6.4 fL (7.4-10.4); Platelet Count 253 thou/uL (130-400); Red Blood Cell (RBC) Count 3.68 mill/uL (4.70-6.10); White Blood Cell (WBC) Count 7.9 thou/uL (4.8-10.8)
[2019-07-24 17:23] LABS: Bilirubin Negative (Negative); Blood, Urine Trace (Negative); Clarity Clear (Clear); Glucose, Urine (Dipstick) Greater than 1000 mg/dL (Negative); Leukocyte Negative Leu/uL (Negative); Nitrite Negative (Negative); Protein, Urine (Dipstick) 50 mg/dL (Neg-Trace); Squamous Epithelial None Seen HPF (0-3); Urobilinogen Normal mg/dL (Less than 2); WBC/HPF 0-3 HPF (0-3)
[2019-07-24 17:27] LABS: Bacteria/HPF 1+ HPF (None Seen); Urine Culture Reflex No No
[2019-07-24] MEDS: HumaLOG 300 UNITS/3 ML VIAL SC PRN (17:27)
[2019-07-24] MEDS: Labetalol HCl 100 MG/20 ML VIAL SLOW IVP PRN (18:03)
--- NOTE | 2019-07-24 20:07 | CT ---
CT Brain WO Con: 07/24/2019 6:03 PM CLINICAL HISTORY: Confusion. COMPARISON: 07/21/2019 FINDINGS: Large volume intraventricular hemorrhage remains, most notable within the right lateral wilder tricle. Dependent, layering hemorrhage of each occipital horn remains, as well. Persistent ventriculomegaly. No additional significant interval change. IMPRESSION: Persistent intraventricular hemorrhage with associated ventriculomegaly. Continued imaging follow-up is warranted.
[2019-07-24] MEDS: Atorvastatin Calcium 20 MG TAB PO SCH (22:15)
[2019-07-24] MEDS: Insulin Glargine 8 UNITS in Pre-Filled Syringe 1 EACH SC SCH (22:15)
[2019-07-25] MEDS: Acetaminophen 325 MG TAB PO PRN (02:24)
[2019-07-25] MEDS: Labetalol HCl 100 MG/20 ML VIAL SLOW IVP PRN ×3 (02:24→23:59)
[2019-07-25 05:23] LABS: Anion Gap 17 mmol/L (10-20); BUN (Urea Nitrogen) 15 mg/dL (8.4-25.7); Calc. Creatinine Clearance 141 mL/min (70-130); Calcium 9.2 mg/dL (7.8-10.44); Carbon Dioxide 22 mmol/L (23-31); Chloride 97 mmol/L (98-107); Estimated GFR-MDRD Greater than 90; Glucose 305 mg/dL (83-110); Sodium 133 mmol/L (136-145)
[2019-07-25 05:26] LABS: Potassium 2.7 mmol/L (3.5-5.1)
[2019-07-25] MEDS ORDERED: Potassium Chloride 20 MEQ TAB PO SCH (05:45)
[2019-07-25] MEDS ORDERED: Potassium Chloride 40 MEQ in Sodium Chloride 0.9% 250 ML 250 ML IVPB SCH (06:00)
[2019-07-25] MEDS: HumaLOG 300 UNITS/3 ML VIAL SC PRN ×3 (06:09→18:05)
[2019-07-25] MEDS: metFORMIN 500 MG TAB PO SCH ×2 (09:10→18:01)
[2019-07-25] MEDS: Losartan 25 MG TAB PO SCH (09:12)
[2019-07-25] MEDS: Folic Acid 1 MG TAB PO SCH (09:13)
[2019-07-25] MEDS: glyBURIDE 5 MG TAB PO SCH ×2 (09:15→21:48)
[2019-07-25] MEDS: Amlodipine 10 MG TAB PO SCH (09:15)
[2019-07-25] MEDS: Cyanocobalamin (Vitamin B-12) 1,000 MCG TAB PO SCH (09:15)
[2019-07-25] MEDS: Thiamine 100 MG TAB PO SCH (09:15)
[2019-07-25] MEDS: HumaLOG 300 UNITS/3 ML VIAL SC SCH ×3 (09:17→21:50)
[2019-07-25] MEDS: Insulin Glargine 20 UNITS in Pre-Filled Syringe 1 EACH SC SCH (09:18)
[2019-07-25] MEDS: Bupropion 150 MG XL TAB PO SCH (09:19)
[2019-07-25] MEDS: FLUoxetine HCl 20 MG CAP PO SCH (09:20)
[2019-07-25] MEDS: Famotidine 20 MG TAB PO SCH ×2 (09:20→21:48)
[2019-07-25] MEDS: Triamterene/Hydrochlorothiazide 37.5 mg/25 mg Tablet PO SCH (09:20)
[2019-07-25] MEDS: Potassium Chloride 20 MEQ TAB PO SCH ×2 (09:32→12:24)
[2019-07-25] MEDS: Tamsulosin HCl 0.4 MG CAP PO SCH (09:33)
[2019-07-25] MEDS ORDERED: Magnesium 2 GM/50 ML 2 GM in Premix Bag 1 BAG IVPB SCH (11:15)
--- NOTE | 2019-07-25 16:44 | PDOC.HOSPP ---
- Subjective Encounter Date: 07/25/19 Encounter Time: 09:00 Subjective: Pt up in bed awake but has been confused at times - Objective Vital Signs & Weight: Vital Signs (12 hours) Temp Pulse Resp BP BP Pulse Ox 07/25/19 15:49 99.3 F 83 20 140/90 07/25/19 13:16 84 161/78 H 07/25/19 12:19 163/94 H 07/25/19 11:52 98.6 F 77 20 163/94 H 92 L 07/25/19 09:21 152/81 H 95 07/25/19 09:15 73 152/81 H 07/25/19 07:00 98.5 F 73 18 152/81 H 95 Weight Weight 249 lb 1.957 oz Most Recent Monitor Data Heart Rate from ECG 90 NIBP 117/88 NIBP BP-Mean 97 Respiration from ECG 18 SpO2 100 I&O: 07/24/19 07/25/19 07/26/19 06:59 06:59 06:59 Intake Total 602 Output Total 375 Balance -375 602 Result Diagrams: 07/24/19 10:48 07/25/19 04:18 Additional Labs: Accuchecks 07/25/19 07/25/19 07/24/19 10:48 06:04 20:07 POC Glucose 284 H 315 H 294 H 07/24/19 16:35 POC Glucose 248 H Hospitalist ROS - Review of Systems Respiratory: denies: cough, dry, shortness of breath, hemoptysis, SOB with excertion, pleuritic pain, sputum, wheezing, other Cardiovascular: denies: chest pain, palpitations, orthopnea, paroxysmal noc. dyspnea, edema, light headedness, other Gastrointestinal: denies: nausea, vomiting, abdominal pain, diarrhea, constipation, melena, hematochezia, other - Medication Medications: Active Medications Generic Name Dose Route Start Last Admin Trade Name Freq PRN Reason Stop Dose Admin Acetaminophen 650 mg 07/20/19 18:16 07/25/19 02:24 Tylenol PO 650 mg Q4H PRN Administration Headache/Fever/Mild Pain (1-3) Amlodipine Besylate 10 mg 07/24/19 09:00 07/25/19 09:15 Norvasc PO 10 mg DAILY CHASE Administration Atorvastatin Calcium 20 mg 07/21/19 21:00 07/24/19 22:15 Lipitor PO 20 mg HS CHASE Administration Bupropion HCl 150 mg 07/22/19 09:00 07/25/19 09:19 Wellbutrin Xl PO 150 mg DAILY CHASE Administration Cyanocobalamin 1,000 mcg 07/22/19 09:00 07/25/19 09:15 Vitamin B-12 PO 1,000 mcg DAILY CHASE Administration Famotidine 20 mg 07/20/19 21:00 07/25/19 09:20 Pepcid PO 20 mg BID CHASE Administration Fluoxetine HCl 40 mg 07/22/19 09:00 07/25/19 09:20 Prozac PO 40 mg DAILY CHASE Administration Folic Acid 1 mg 07/22/19 09:00 07/25/19 09:13 Folvite PO 1 mg DAILY CHASE Administration Glyburide 5 mg 07/23/19 21:00 07/25/19 09:15 Diabeta PO 5 mg BID CHASE Administration Hydralazine HCl 10 mg 07/20/19 18:16 07/23/19 16:04 Apresoline SLOW IVP 10 mg Q4H PRN Administration SBP Greater Than 170 Insulin Glargine 20 units/ 0.2 mls @ 0 mls/hr 07/22/19 09:00 07/25/19 09:18 Miscellaneous Medication SC 0.2 mls QAM CHASE Administration Insulin Glargine 8 units/ 0.08 mls @ 0 mls/hr 07/22/19 21:00 07/24/19 22:15 Miscellaneous Medication SC 0.08 mls HS CHASE Administration Insulin Human Lispro 0 units 07/20/19 18:16 07/24/19 11:11 Humalog SC 4 unit .BEDTIME SLIDING SC PRN Administration Bedtime Correctional Scale Insulin Human Lispro 0 units 07/21/19 17:45 07/25/19 11:49 Humalog SC 9 units .AGGRESSIVE SLIDING PRN Administration AGGRESSIVE SLIDING SCALE Protocol Insulin Human Lispro 6 units 07/22/19 09:00 07/25/19 14:34 Humalog SC 6 unit TID CHASE Administration Labetalol HCl 10 mg 07/21/19 00:12 07/25/19 13:16 Normodyne SLOW IVP 10 mg Q4H PRN Administration TO KEEP SBP<160 Losartan Potassium 100 mg 07/24/19 09:00 07/25/19 09:12 Cozaar PO 100 mg DAILY CHASE Administration Metformin HCl 1,000 mg 07/23/19 17:00 07/25/19 09:10 Glucophage PO 1,000 mg BID-WM CHASE Administration Sodium Chloride 10 ml 07/21/19 09:00 07/25/19 09:16 Flush - Normal Saline IVF Not Given Q12HR CHASE Sodium Chloride 10 ml 07/21/19 07:37 07/23/19 05:51 Flush - Normal Saline IVF 10 ml PRN PRN Administration Saline Flush Tamsulosin HCl 0.4 mg 07/24/19 09:00 07/25/19 09:33 Flomax PO 0.4 mg DAILY CHASE Administration Thiamine HCl 100 mg 07/22/19 09:00 07/25/19 09:15 Thiamine PO 100 mg DAILY CHASE Administration Triamterene/HCTZ 1 tab 07/24/19 09:00 07/25/19 09:20 Maxzide-25 PO 1 tab QAM CHASE Administration - Exam Neck: negative: supple, symmetric, no JVD, no thyromegaly, no lymphadenopathy, no carotid bruit, JVD Heart: negative: RRR, no murmur, no gallops, no rubs, normal peripheral pulses, irregular, diminshed peripheral pulses, murmur present, II/IV, III/IV Respiratory: negative: CTAB, no wheezes, no rales, no ronchi, normal chest expansion, no tachypnea, normal percussion, rales, rhonchi, tachypneic, wheezes Hosp A/P (1) Intraventricular hemorrhage Code(s): I61.5 - NONTRAUMATIC INTRACEREBRAL HEMORRHAGE, INTRAVENTRICULAR Status: Acute (2) AURELIANO (acute kidney injury) Code(s): N17.9 - ACUTE KIDNEY FAILURE, UNSPECIFIED Status: Acute (3) Acute metabolic encephalopathy Code(s): G93.41 - METABOLIC ENCEPHALOPATHY Status: Acute (4) Alcohol abuse Code(s): F10.10 - ALCOHOL ABUSE, UNCOMPLICATED Status: Acute (5) Dehydration Code(s): E86.0 - DEHYDRATION Status: Acute (6) DM2 (diabetes mellitus, type 2) Status: Chronic (7) Fall Code(s): W19.XXXA - UNSPECIFIED FALL, INITIAL ENCOUNTER Status: Acute (8) Hypokalemia Code(s): E87.6 - HYPOKALEMIA Status: Acute (9) Hypomagnesemia Code(s): E83.42 - HYPOMAGNESEMIA Status: Acute - Plan will put pt on ASE protocol, thiamine and folic acid. will continue to [facility]. PT/OT for eval. pt uses walker and has been having multiple falls. 07/22 pt up in bed eating, no new complains will monitor. continue current meds. will titrate his insulin for better blood sugar control. 07/23 pt up in bed no complains, will adjust bp meds and insulin. will get PT to see pt possible rehab. 07/24 pt seemed more confused and was not answering his daughter last night. ct head did not show any new changes. pt at times will not answer question not sure if this is secondary to his underlying bleed vs ?cognitive impairment vs both. He did have a hx of alcohol use. Per daughter he has been taking care of his and has been driving. Ua negative, no elevated wbc no fever. will get a repeat cxr. I did speak with Neurosurgery PA who did not think. I did have a conversation with his daughter who was concerned about his mental status. I updated her on what we had done and will monitor him closely. He will be going to rehab.
--- NOTE | 2019-07-25 16:55 | PDOC.HOSPP ---
- Subjective Encounter Date: 07/24/19 Encounter Time: 10:00 Subjective: pt up in bed oriented to self only - Objective Vital Signs & Weight: Vital Signs (12 hours) Temp Pulse Resp BP BP Pulse Ox 07/25/19 15:49 99.3 F 83 20 140/90 07/25/19 13:16 84 161/78 H 07/25/19 12:19 163/94 H 07/25/19 11:52 98.6 F 77 20 163/94 H 92 L 07/25/19 09:21 152/81 H 95 07/25/19 09:15 73 152/81 H 07/25/19 07:00 98.5 F 73 18 152/81 H 95 Weight Weight 249 lb 1.957 oz Most Recent Monitor Data Heart Rate from ECG 90 NIBP 117/88 NIBP BP-Mean 97 Respiration from ECG 18 SpO2 100 I&O: 07/24/19 07/25/19 07/26/19 06:59 06:59 06:59 Intake Total 602 Output Total 375 Balance -375 602 Result Diagrams: 07/24/19 10:48 07/25/19 04:18 Additional Labs: Accuchecks 07/25/19 07/25/19 07/24/19 10:48 06:04 20:07 POC Glucose 284 H 315 H 294 H Hospitalist ROS - Review of Systems Respiratory: denies: cough, dry, shortness of breath, hemoptysis, SOB with excertion, pleuritic pain, sputum, wheezing, other Cardiovascular: denies: chest pain, palpitations, orthopnea, paroxysmal noc. dyspnea, edema, light headedness, other Gastrointestinal: denies: nausea, vomiting, abdominal pain, diarrhea, constipation, melena, hematochezia, other - Medication Medications: Active Medications Generic Name Dose Route Start Last Admin Trade Name Freq PRN Reason Stop Dose Admin Acetaminophen 650 mg 07/20/19 18:16 07/25/19 02:24 Tylenol PO 650 mg Q4H PRN Administration Headache/Fever/Mild Pain (1-3) Amlodipine Besylate 10 mg 07/24/19 09:00 07/25/19 09:15 Norvasc PO 10 mg DAILY CHASE Administration Atorvastatin Calcium 20 mg 07/21/19 21:00 07/24/19 22:15 Lipitor PO 20 mg HS CHASE Administration Bupropion HCl 150 mg 10/13/19 09:00 07/25/19 09:19 Wellbutrin Xl PO 150 mg DAILY CHASE Administration Cyanocobalamin 1,000 mcg 07/22/19 09:00 07/25/19 09:15 Vitamin B-12 PO 1,000 mcg DAILY CHASE Administration Famotidine 20 mg 07/20/19 21:00 07/25/19 09:20 Pepcid PO 20 mg BID CHASE Administration Fluoxetine HCl 40 mg 07/22/19 09:00 07/25/19 09:20 Prozac PO 40 mg DAILY CHASE Administration Folic Acid 1 mg 07/22/19 09:00 07/25/19 09:13 Folvite PO 1 mg DAILY CHASE Administration Glyburide 5 mg 07/23/19 21:00 07/25/19 09:15 Diabeta PO 5 mg BID CHASE Administration Hydralazine HCl 10 mg 07/20/19 18:16 07/23/19 16:04 Apresoline SLOW IVP 10 mg Q4H PRN Administration SBP Greater Than 170 Insulin Glargine 20 units/ 0.2 mls @ 0 mls/hr 07/22/19 09:00 07/25/19 09:18 Miscellaneous Medication SC 0.2 mls QAM CHASE Administration Insulin Human Lispro 0 units 07/20/19 18:16 07/24/19 11:11 Humalog SC 4 unit .BEDTIME SLIDING SC PRN Administration Bedtime Correctional Scale Insulin Human Lispro 0 units 07/21/19 17:45 07/25/19 11:49 Humalog SC 9 units .AGGRESSIVE SLIDING PRN Administration AGGRESSIVE SLIDING SCALE Protocol Insulin Human Lispro 6 units 07/22/19 09:00 07/25/19 14:34 Humalog SC 6 unit TID CHASE Administration Labetalol HCl 10 mg 07/21/19 00:12 07/25/19 13:16 Normodyne SLOW IVP 10 mg Q4H PRN Administration TO KEEP SBP<160 Losartan Potassium 100 mg 07/24/19 09:00 07/25/19 09:12 Cozaar PO 100 mg DAILY CHASE Administration Metformin HCl 1,000 mg 07/23/19 17:00 07/25/19 09:10 Glucophage PO 1,000 mg BID-WM CHASE Administration Sodium Chloride 10 ml 07/21/19 09:00 07/25/19 09:16 Flush - Normal Saline IVF Not Given Q12HR CHASE Sodium Chloride 10 ml 07/21/19 07:37 07/23/19 05:51 Flush - Normal Saline IVF 10 ml PRN PRN Administration Saline Flush Tamsulosin HCl 0.4 mg 07/24/19 09:00 07/25/19 09:33 Flomax PO 0.4 mg DAILY CHASE Administration Thiamine HCl 100 mg 07/22/19 09:00 07/25/19 09:15 Thiamine PO 100 mg DAILY CHASE Administration Triamterene/HCTZ 1 tab 07/24/19 09:00 07/25/19 09:20 Maxzide-25 PO 1 tab QAM CHASE Administration - Exam Neck: negative: supple, symmetric, no JVD, no thyromegaly, no lymphadenopathy, no carotid bruit, JVD Heart: negative: RRR, no murmur, no gallops, no rubs, normal peripheral pulses, irregular, diminshed peripheral pulses, murmur present, II/IV, III/IV Respiratory: negative: CTAB, no wheezes, no rales, no ronchi, normal chest expansion, no tachypnea, normal percussion, rales, rhonchi, tachypneic, wheezes Gastrointestinal: negative: soft, non-tender, non-distended, normal bowel sounds , no palpable masses, no hepatomegaly, no splenomegaly, no bruit, no guarding, no rigidity, tender to palpation, distended, diminished bowl sounds, voluntary guarding Neurological: no weakness, no focal deficits Hosp A/P (1) Intraventricular hemorrhage Code(s): I61.5 - NONTRAUMATIC INTRACEREBRAL HEMORRHAGE, INTRAVENTRICULAR Status: Acute (2) AURELIANO (acute kidney injury) Code(s): N17.9 - ACUTE KIDNEY FAILURE, UNSPECIFIED Status: Acute (3) Acute metabolic encephalopathy Code(s): G93.41 - METABOLIC ENCEPHALOPATHY Status: Acute (4) Alcohol abuse Code(s): F10.10 - ALCOHOL ABUSE, UNCOMPLICATED Status: Acute (5) Dehydration Code(s): E86.0 - DEHYDRATION Status: Acute (6) DM2 (diabetes mellitus, type 2) Status: Chronic (7) Fall Code(s): W19.XXXA - UNSPECIFIED FALL, INITIAL ENCOUNTER Status: Acute (8) Hypokalemia Code(s): E87.6 - HYPOKALEMIA Status: Acute (9) Hypomagnesemia Code(s): E83.42 - HYPOMAGNESEMIA Status: Acute - Plan will put pt on ASE protocol, thiamine and folic acid. [facility] for eval. pt uses walker and has been having multiple falls. 07/22 pt up in bed eating, no new complains will monitor. continue current meds. will titrate his insulin for better blood sugar control. 07/23 pt up in bed no complains, will adjust bp meds and insulin. will get PT to see pt possible rehab. 07/24 will replace electrolytes, he will need rehab, per efren he can restart his plavix after he has followed up with neurosurgery in the office. 07/25 pt seemed more confused and was not answering his daughter last night. ct head did not show any new changes. pt at times will not answer question not sure if this is secondary to his underlying bleed vs ?cognitive impairment vs both. He did have a hx of alcohol use. Per daughter he has been taking care of his and has been driving. Ua negative, no elevated wbc no fever. will get a repeat cxr. I did speak with Neurosurgery PA who did not think. I did have a conversation with his daughter who was concerned about his mental status. I updated her on what we had done and will monitor him closely. He will be going to rehab.
--- NOTE | 2019-07-25 18:44 | RAD ---
PORTABLE UPRIGHT FRONTAL CHEST RADIOGRAPH: 07/25/19 COMPARISON: 07/20/19. HISTORY: Altered mental status. FINDINGS: There is stable prominence of the cardiac silhouette with no pneumothorax, pleural fluid, focal conso lidation or alveolar edema. Bilateral AC joint degenerative change. IMPRESSION: No focal consolidation or alveolar edema. POS: RENETTA
[2019-07-25] MEDS ORDERED: Insulin Glargine 10 UNITS in Pre-Filled Syringe SC SCH (21:00)
[2019-07-25] MEDS: Atorvastatin Calcium 20 MG TAB PO SCH (21:47)
[2019-07-26] MEDS: Acetaminophen 325 MG TAB PO PRN (03:43)
[2019-07-26 05:08] LABS: Anion Gap 15 mmol/L (10-20); BUN (Urea Nitrogen) 15 mg/dL (8.4-25.7); Calc. Creatinine Clearance 109 mL/min (70-130); Calcium 9.2 mg/dL (7.8-10.44); Carbon Dioxide 23 mmol/L (23-31); Chloride 99 mmol/L (98-107); Estimated GFR-MDRD 75; Glucose 311 mg/dL (83-110); Sodium 134 mmol/L (136-145)
[2019-07-26] MEDS: HumaLOG 300 UNITS/3 ML VIAL SC PRN (06:34)
[2019-07-26] MEDS ORDERED: hydrALAZINE 25 MG TAB PO SCH (09:00)
[2019-07-26] MEDS ORDERED: Metoprolol Tartrate 50 MG TAB PO SCH (09:00)
[2019-07-26] MEDS ORDERED: Potassium Chloride 10 MEQ in Premix Bag 1 BAG IVPB SCH (09:30)
[2019-07-26] MEDS ORDERED: Potassium Chloride 20 MEQ TAB PO SCH (09:30)
[2019-07-26] MEDS ORDERED: HumaLOG 300 UNITS/3 ML VIAL SC SCH (09:33)
[2019-07-26] MEDS ORDERED: Acetaminophen/Codeine 30-300mg Tablet PO PRN (09:59)
[2019-07-26] MEDS: Amlodipine 10 MG TAB PO SCH (10:36)
[2019-07-26] MEDS: metFORMIN 500 MG TAB PO SCH (10:37)
[2019-07-26] MEDS: Tamsulosin HCl 0.4 MG CAP PO SCH (10:37)
[2019-07-26] MEDS: Thiamine 100 MG TAB PO SCH (10:37)
[2019-07-26] MEDS: Losartan 25 MG TAB PO SCH (10:38)
[2019-07-26] MEDS: Famotidine 20 MG TAB PO SCH (10:38)
[2019-07-26] MEDS: Bupropion 150 MG XL TAB PO SCH (10:38)
[2019-07-26] MEDS: Cyanocobalamin (Vitamin B-12) 1,000 MCG TAB PO SCH (10:39)
[2019-07-26] MEDS: FLUoxetine HCl 20 MG CAP PO SCH (10:39)
[2019-07-26] MEDS: Folic Acid 1 MG TAB PO SCH (10:39)
[2019-07-26] MEDS: Insulin Glargine 20 UNITS in Pre-Filled Syringe 1 EACH SC SCH (10:46)
[2019-07-26] MEDS: HumaLOG 300 UNITS/3 ML VIAL SC SCH (10:48)
[2019-07-26] MEDS: glyBURIDE 5 MG TAB PO SCH (10:48)
[2019-07-26] MEDS: Triamterene/Hydrochlorothiazide 37.5 mg/25 mg Tablet PO SCH (10:51)
[2019-07-26] MEDS ORDERED: glyBURIDE 5 MG TAB PO SCH (11:30)
[2019-07-26 12:07] VITALS: BP 179/87; TEMP 98.2
[2019-07-27] MEDS ORDERED: glyBURIDE 5 MG TAB PO SCH (07:30)
--- NOTE | 2019-07-27 14:51 | DIS ---
DATE OF ADMISSION: 07/20/2019 DATE OF DISCHARGE: 07/26/2019 DISCHARGE DIAGNOSES: 1. Intraventricular bleed from fall. 2. Acute kidney injury. 3. Acute metabolic encephalopathy. 4. Alcohol abuse. 5. Dehydration. 6. Diabetes. 7. Hypokalemia. 8. Hypomagnesemia. 9. Low vitamin B12. 10. Fall. 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 The patient at this time underwent a CT scan, which indicated significant intraventricular hemorrhage. He was initially admitted in ICU and Neurosurgery was consulted. The patient was watched over a couple of days in the ICU and then was transitioned to Stroke Unit. He was on Plavix which was held and initially, he was given 6 units of platelets in the ER. The patient also was hydrated. Throughout the hospital stay, the patient's mentation would wax and wane. At this time multiple times, he has had brain CTs, which have been stable. There is a question of possible underlying cognitive impairment and also the alcohol use. The patient has been discharged to inpatient rehab where he will continue to get rehabilitation. His creatinine was back to baseline. His sugars have been significantly elevated and having multiple increasing of his insulin for better sugar control. His chest x-ray did not show any acute abnormalities and also, his urine did not show any new infection. PHYSICAL EXAMINATION: VITAL SIGNS: On discharge, temperature 98.2, pulse 80, respirations 16, 98% on room air, blood pressure 179/87. GENERAL: He was awake, alert, and oriented x2. At times, he does answers questions, at times he does not. CV: S1 and S2 present. No murmurs, rubs, or gallops. ABDOMEN: Soft, nontender. Bowel sounds are present x2. EXTREMITIES: No edema. HOME MEDICATIONS: 1. Metformin 1000 mg b.i.d. 2. Tamsulosin one capsule daily. 3. Benicar 1 tablet daily. 4. Simvastatin 1 tablet at bedtime. 5. Glyburide 10 mg daily. 6. Thiamine 100 mg daily. 7. Metoprolol 50 mg daily. 8. Insulin 10 units at night, 20 units in the morning. 9. Folic acid one p.o. daily. 10. Vitamin B12 of 1000 mcg daily. 11. Norvasc 10 mg daily. 12. Tylenol with codeine 1 tablet p.o. q.4 hours as needed. DISPOSITION: The patient's daughter was updated and she understands what has been going on with the patient. Again, the patient will be discharged to inpatient rehab for strengthening. Job ID: [id number]
--- NOTE | 2019-07-28 12:45 | EKG ---
Test Reason : Blood Pressure : / mmHG Vent. Rate : 068 BPM Atrial Rate : 068 BPM P-R Int : 182 ms QRS Dur : 098 ms QT Int : 446 ms P-R-T Axes : 003 -27 001 degrees QTc Int : 474 ms Sinus rhythm with Premature supraventricular complexes Moderate voltage criteria for LVH, may be normal variant Borderline ECG Confirmed by HIRO JOHNSON D.O. ([id number]), map editor ALEJANDRO ARREDONDO ([id number]) on 07/28/2019 12:44:36 PM Referred By: Confirmed By:HIRO JOHNSON D.O.
== END 2019-07-26 13:13 | DRG 64 ==
LOC: ERS 14:12 → CCU 17:59 → 2SE 07-22 12:44
PROVIDERS: ADMIT Internal Medicine; ATTEND Internal Medicine
DX: I61.5 Nontraumatic intracerebral hemorrhage, intraventricular (principal); G93.41 Metabolic encephalopathy; S06.340A Traumatic hemorrhage of right cerebrum without loss of consciousness, initial encounter; N17.9 Acute kidney failure, unspecified; R29.6 Repeated falls; I10 Essential (primary) hypertension; E86.9 Volume depletion, unspecified; F10.10 Alcohol abuse, uncomplicated; E87.6 Hypokalemia; E11.9 Type 2 diabetes mellitus without complications; E83.42 Hypomagnesemia; W01.0XXA Fall on same level from slipping, tripping and stumbling without subsequent striking against object, initial encounter; Y92.092 Bedroom in other non-institutional residence as the place of occurrence of the external cause; Z90.49 Acquired absence of other specified parts of digestive tract
CPT/HCPCS: 36415; 36416; 36430; 70450; 71045; 72125; 72170; 80048; 80053; 81001; 82306; 82550; 82607; 82746; 83036; 83605; 83735; 84100; 85025; 85610; 85730; 86850; 86900; 86901; 87324; 87449; 93005; J0360; J1815; J3420; J3475; J3480; J7050; P9035

== ENCOUNTER 2019-07-30 12:22 | Inpatient (IN) | payer MEDICARE, OTHER ==
[2019-07-30] MEDS ORDERED: PROPOFOL 200 MG/20 ML VIAL ONE (14:32)
[2019-07-30] MEDS ORDERED: PHENYLEPHRINE-NS 100 MCG/ML 10 ML SYRINGE ONE ×2 (14:32→15:54)
[2019-07-30] MEDS ORDERED: Phenylephrine HCL 10 MG/ML VIAL ONE (15:54)
[2019-07-30 16:09] LABS: Actual Bicarbonate (HCO3a) 18.6 mEq/L (22-28); Base Excess (BEa) -5.2 mEq/L (-2.0 to +3.0); CO2 Tension 31.7 mmHg (35.0-45.0); Calcium, Ionized 1.21 mmol/L (1.12-1.30); Carboxyhemoglobin (COHb) 1.7 gm% (0.0-3.0); Hemoglobin (Hb) 15.2 g/dL (14.0-18.0); O2 Tension (PaO2) 85.4 mmHg (> 70.0); Potassium - ABG Lab 3.33 mmol/L (3.70-5.30); pH, Arterial 7.39 (7.35-7.45)
[2019-07-30 16:10] LABS: Puncture Site P
[2019-07-30] MEDS ORDERED: Ondansetron PF 4 MG/2 ML Vial IVP PRN (19:03)
[2019-07-30] MEDS ORDERED: Ondansetron ODT 4 MG TAB PER TUBE PRN (19:03)
[2019-07-30] MEDS ORDERED: HumaLOG 300 UNITS/3 ML VIAL SC PRN (19:03)
[2019-07-30] MEDS ORDERED: Dextrose 50% Abboject 50 ML SYRINGE SLOW IVP PRN (19:03)
[2019-07-30] MEDS ORDERED: Dextrose 5% in Water 1,000 ML IV PRN (19:03)
[2019-07-30] MEDS ORDERED: Labetalol HCl 100 MG/20 ML VIAL SLOW IVP PRN (19:03)
[2019-07-30] MEDS: Sodium Chloride 0.9% 1,000 ML IV SCH (20:19)
[2019-07-30] MEDS: Diltiazem 125 MG in Sodium Chloride 0.9% 100 ML IVPB SCH (20:19)
--- NOTE | 2019-07-30 20:23 | RAD ---
EXAM: CHEST ONE VIEW HISTORY: Aspiration, respiratory failure. COMPARISON: 07/29/2019 and 07/25/2019 FINDINGS: Cardiac silhouette is magnified by projection and patient rotation. Thoracic aorta is ectatic but als o magnified by patient rotation. Pulmonary vasculature is within normal limits. Calcified granuloma overlies the left upper lung zone. Lungs otherwise appear clear. The osseous structures are intact. IMPRESSION: Given patient rotation, chest is overall unchanged when compared to the prior study. There is no acut e cardiopulmonary process identified.
--- NOTE | 2019-07-30 21:17 | CT ---
CT HEAD WITHOUT IV CONTRAST COMPARISON: 07/27/2019 HISTORY: Follow-up evaluation of intracranial bleed TECHNIQUE: This CT examination was performed helically secondary to patient being uncooperative due t o clinical condition. FINDINGS: The previously seen intraventricular hemorrhage has not significantly changed when compared to the pr ior exam. The intraventricular hemorrhage again predominantly involves the right lateral ventricle with dependent hemorrhage seen within the occipital horns of each lateral ventricle. Dilatation of th e ventricular system is again seen similar to prior study. Stable diminished attenuation in the periventricular white matter is again seen and probably related to chronic small vessel ischemic iniguez ges. No new intraparenchymal or extra-axial hemorrhage is identified. No acute cortical infarction is seen . Mucosal thickening is seen in each sphenoid sinus. No other interval change. IMPRESSION: Redemonstration of intraventricular hemorrhage and associated ventriculomegaly. There has been no sig nificant interval change when compared to the prior study on 07/27/2019.
[2019-07-30] MEDS: Cefepime 2 GM in Sodium Chloride 0.9% 100 ML IVPB SCH (22:14)
[2019-07-30] MEDS: Famotidine/PF 20 mg/2ml Vial SLOW IVP SCH (22:18)
[2019-07-30] MEDS: HumaLOG 300 UNITS/3 ML VIAL SC PRN (22:41)
[2019-07-30] MEDS: Vancomycin HCl 1 GM in Premix Bag 1 BAG IVPB SCH (22:50)
[2019-07-30 23:09] LABS: Actual Bicarbonate (HCO3a) 14.6 mEq/L (22-28); Base Excess (BEa) -8.8 mEq/L (-2.0 to +3.0); CO2 Tension 26.3 mmHg (35.0-45.0); Calcium, Ionized 1.21 mmol/L (1.12-1.30); Carboxyhemoglobin (COHb) 1.1 gm% (0.0-3.0); Hemoglobin (Hb) 15.7 g/dL (14.0-18.0); O2 Tension (PaO2) 110.3 mmHg (> 70.0); Potassium - ABG Lab 3.43 mmol/L (3.70-5.30); pH, Arterial 7.36 (7.35-7.45)
[2019-07-30 23:10] LABS: Puncture Site L RADIAL
[2019-07-30 23:11] LABS: ALV-art Gradient 270.365 (0-20)
--- NOTE | 2019-07-30 23:57 | HP ---
PRIMARY CARE PROVIDER: Gilberto Bell MD CHIEF COMPLAINT: Shortness of breath. HISTORY OF PRESENT ILLNESS: This is a 73-year-old male, who was brought to [facility] for PEG tube placement by the GI Service after recent intraventricular hemorrhage with discharge on 07/27/2019 to inpatient rehabilitation. The patient was admitted there for convalescence and inpatient rehabilitation; however, was noted with dysphagia that was progressive. The patient was evaluated by the GI Service and deemed appropriate to undergo a PEG tube placement, which was performed on 07/30/2019. Postoperatively, the patient had increased respiratory distress requiring BiPAP noninvasive mechanical ventilation to maintain O2 saturations. The patient was also noted with tachycardia on telemetry monitoring with concern for atrial fibrillation and rapid ventricular response. Initial ABG was performed showing a preserved pH of 7.39, pCO2 of 32 and PO2 of 85. The patient was placed on BiPAP noninvasive mechanical ventilation, maintaining O2 saturations in the 98% to 100% range on 30% FiO2. Initial concern for potential aspiration pneumonia as the patient was noted with increased secretions near the epiglottis at the time of endoscopy. The patient did receive copious suctioning and successful PEG tube placement. PAST MEDICAL HISTORY: 1. Intraventricular hemorrhage of the right lateral ventricle and frontal horn with associated ventriculomegaly. 2. Acute metabolic encephalopathy secondary to intraventricular hemorrhage, persistent. 3. Dysphagia, requiring PEG tube insertion. 4. History of alcohol abuse. 5. Diabetes mellitus, type 2. 6. B12 deficiency. 7. Folic acid deficiency. 8. Hypomagnesemia. 9. Left hemiparesis. 10. Aphasia secondary to intraventricular hemorrhage. 11. Hypertension. PAST SURGICAL HISTORY: 1. Status post cholecystectomy. 2. Status post ingrown toenail removal. 3. Status post PEG tube insertion, 07/30/2019. CURRENT MEDICATIONS: 1. Wellbutrin XL 150 mg p.o. daily. 2. Fluoxetine 40 mg p.o. daily. 3. Metformin 1000 mg p.o. b.i.d. 4. Olmesartan 40 mg p.o. daily. 5. Simvastatin 40 mg p.o. at bedtime. 6. Tamsulosin 0.4 mg p.o. daily. 7. Tylenol #3 300 mg/30 mg one tablet p.o. q.4 to 6 hours p.r.n. pain. 8. Norvasc 10 mg p.o. daily. 9. Vitamin B12 1000 mcg p.o. daily. 10. Folic acid 1 mg p.o. daily. 11. DiaBeta 10 mg p.o. daily. 12. Lantus 20 units subcutaneously q.a.m. and 10 units subcutaneously at bedtime. 13. Metoprolol tartrate 50 mg p.o. daily. 14. Thiamine 100 mg p.o. daily. ALLERGIES: NO KNOWN DRUG ALLERGIES. FAMILY HISTORY: No inheritable diseases. SOCIAL HISTORY: The patient is . No tobacco. Daily alcohol use. No illicit drug use. Resides at inpatient rehabilitation since discharge from [facility] on 07/27/2019. REVIEW OF SYSTEMS: Unobtainable as the patient is aphasic. PHYSICAL EXAMINATION: VITAL SIGNS: On admission, blood pressure 156/96, pulse 128, respiratory rate 28, temperature 98 degrees Fahrenheit, O2 saturation is 98% on 30% FiO2 by BiPAP noninvasive mechanical ventilation. GENERAL APPEARANCE: This is a 73-year-old male, on BiPAP noninvasive mechanical ventilation. Moves right upper and right lower extremity randomly. Left hemiparesis. HEENT: Pupils are equal, round, and reactive to light and accommodation. Extraocular muscles are intact. BiPAP noninvasive mechanical ventilation and mask in place. OP is clear. NECK: Supple. No cervical adenopathy. No thyromegaly. No carotid bruits. No JVD appreciated. Cervical spine with full active and passive range of motion. No meningeal signs noted. CHEST: Coarse breath sounds bilaterally with diminished breath sounds bilaterally. CARDIOVASCULAR: S1 and S2 with irregular rate and rhythm. No murmur appreciated. Tachycardic. ABDOMEN: Obese with tympanic sounds in all 4 quadrants. PEG tube site intact without discharge. Bowel sounds are positive in all 4 quadrants. Landmarks are difficult to palpate due to the patient's body habitus. EXTREMITIES: Warm and dry with fair turgor. No clubbing, cyanosis, or asymmetric edema appreciated. Pulses palpable distally at the dorsalis pedis, posterior tibial, and popliteal arteries bilaterally. Capillary refill less than 2 seconds. NEUROLOGIC: Aphasic, lethargic, randomly moves right upper and lower extremity. Left hemiparesis noted. Positive dysphagia. Does not follow commands. PERTINENT LABORATORY AND X-RAY FINDINGS: Sodium 145, potassium 3.5, chloride 111, CO2 of 17, BUN 35, creatinine 1.28, estimated GFR 55, glucose 467. Hemoglobin A1c 8.6 on 07/22/2019. Calcium 9.2. Total bilirubin 2.3, AST 28, ALT of 23, alkaline phosphatase 92. CBC showed a white blood cell count of 11.5, hemoglobin 16, hematocrit 47.5, MCV 104, platelet count 368 with 77% neutrophils. ABG dated 07/30/2019 with 21% FiO2 showed a pH of 7.39, pCO2 of 31.7, PO2 85.4, bicarb 18.6, O2 saturation 96%. EKG dated 07/30/2019, by my interpretation shows sinus tachycardia with heart rates in the 120s. Question of intermittent atrial fibrillation. Normal axis. No acute ST-T wave changes noted. ASSESSMENT AND PLAN: 1. Acute hypoxic respiratory failure. The patient will be admitted to the Critical Care Unit on BiPAP noninvasive mechanical ventilation. We will continue FiO2 of 30% and titrate to clinical response. Add DuoNebs q.4 hours scheduled. See #2 below. Consult Pulmonology Service for further recommendations. 2. Aspiration pneumonia. Suspected given the patient's clinical presentation of dysphagia and recent PEG tube insertion. Repeat portable chest x-ray now. Continue treatment as outlined above in #1. Continue vancomycin 1 g IV q.12 hours with additional cefepime 2 g IV q.12 hours. Blood cultures pending. 3. Atrial fibrillation with rapid ventricular response. We will initiate Cardizem 20 mg IV bolus x1 followed by Cardizem infusion at 10 mg/hour. Resume metoprolol 50 mg per PEG tube daily. Continue telemetry monitoring. Consider Cardiology consult if rate is not improved in the next 12 hours. Check TSH and magnesium level. 4. Intracranial hemorrhage with dysphagia. Status post PEG tube insertion due to dysphagia. Consult Dietitian Services for formula preparation and recommendations. N.p.o. status. 5. Chronic kidney disease, stage 3. Continue intravenous normal saline at 75 mL/h. Avoid nephrotoxic agents. Limit contrast exposure. Repeat creatinine in the a.m. 6. Diabetes mellitus type 2, insulin requiring. Insulin sliding scale for reflexive coverage. Serial Accu-Cheks before meals and at bedtime. Last hemoglobin A1c 8.6, 07/22/2019. 7. Prophylaxis. SCDs while in bed. Pepcid 20 mg IV q.12 hours. 8. PT, OT, and speech therapy evaluation in the a.m. 9. Code status is full. Surrogate medical decision maker is the patient's daughter. Total critical care time 40 minutes. Job ID: [id number]
[2019-07-31] MEDS ORDERED: Propofol 1,000 MG/100 ML VIAL IV ONE
[2019-07-31] MEDS ORDERED: Ventilator Sedation Protocol 1 EACH FS ONE (00:06)
[2019-07-31] MEDS ORDERED: fentaNYL Citrate/PF 2,000 MCG in Sodium Chloride 0.9% 60 ML IV SCH (00:09)
[2019-07-31] MEDS ORDERED: Propofol BOLUS 1,000 MG/100 ML VIAL IV PRN (00:09)
[2019-07-31] MEDS ORDERED: Propofol 1,000 MG/100 ML VIAL IV PRN (00:09)
[2019-07-31] MEDS ORDERED: DISCONTINUE PREVIOUS NARCOTIC PAIN MEDICATIONS AND BENZODIAZEPINES FS SCH (00:09)
[2019-07-31] MEDS ORDERED: Fentanyl BOLUS 250 ML IVPB PRN (00:09)
--- NOTE | 2019-07-31 00:56 | CON ---
DATE OF CONSULTATION: 07/30/2019 HISTORY OF PRESENT ILLNESS: Mr. Gray is a 73-year-old male, who had a ventricular hemorrhage. He was discharged to rehab and then sent back for a PEG. Apparently, he had copious secretions in the endoscopy suite today. He was transferred to the ICU for BiPAP. I am told he was more functional when he was discharged and was today when he returned. PAST MEDICAL HISTORY: Remarkable for; 1. History of diabetes. 2. History of alcohol use according to admission records. 3. History of hypertension. 4. History of cholecystectomy. 5. History of PEG inserted today. MEDICATIONS: Prior to admission, Wellbutrin, fluoxetine, metformin, olmesartan, simvastatin, tamsulosin, Norvasc, DiaBeta insulin, metoprolol, and thiamine. ALLERGIES: HE HAS NO REPORTED DRUG ALLERGIES. FAMILY HISTORY: Negative for lung disease in early age. SOCIAL HISTORY: Nonsmoker, nondrinker. REVIEW OF SYSTEMS: Not obtainable. PHYSICAL EXAMINATION: GENERAL: He is not awake. He had rhonchorous respirations in the 30s. Heart rates 120 to 130 when arrived. Oximetry is in the high 90s. Sclerae anicteric. NECK: Supple. LUNGS: Remarkable for rhonchi diffusely. HEART: Regular rhythm. ABDOMEN: Soft. EXTREMITIES: Without asymmetry. LABORATORY DATA: PH 7.36, PCO2 of 26, PO2 110. White count 11.5, hemoglobin 16, platelets 368,000 at 6 o'clock this morning. Sodium 145, potassium 3.5, chloride 111, bicarb 17, BUN 35, creatinine 1.28. IMPRESSION: Respiratory failure with inability to clear secretions. PLAN: Fiberoptic bronchoscopy with intubation. Critical care time is 35 minutes. Job ID: [id number] MTDD
--- NOTE | 2019-07-31 01:12 | OP ---
DATE OF PROCEDURE: 07/30/2019 The patient had bite block placed in his mouth. Bronchoscope was passed down to his vocal cords. He had copious retained salivary secretions above his cords, these were suctioned out. His trachea was entered. Copious thick white secretions were encountered all the way down to his main govind, his right mainstem bronchus, left mainstem bronchus. The endotracheal tube was advanced and secured above the main govind at 23 cm sheath. Scope was withdrawn, he was Ambu bagged, and the scope was reintroduced. Saline, approximately 15 to 20 mL, was used to irrigate those secretions in his proximal tracheobronchial tree. There were no endobronchial secretions at the completion of the procedure. He is connected to mechanical ventilation. He will be sedated with sedation protocol. Neurosurgery should be consulted given a change in his mental status tomorrow even though the CAT scan was interpreted as not showing any significant change. Given his age and some underlying cerebral atrophy, it is hard to know whether or not he is developing obstructive hydrocephalus explaining his decline in functional status. Apparently, the daughter relayed to the nursing staff that he is much more functional yesterday and at the end of last week. Critical care time independent of procedure, 30 minutes. The consult was a 07/30/2019 consult. Job ID: [id number]
[2019-07-31 04:04] LABS: Band 1 % (5-11); Hemoglobin 14.5 g/dL (14.0-18.0); Lymphocytes 12 % (21-51); MDiff Complete? YES; Mean Corpuscular HGB CONC 33.9 g/dL (32.0-36.0); Mean Corpuscular Hemoglobin 35.3 pg (27.0-31.0); Mean Platelet Volume 7.7 fL (7.4-10.4); Metamyelocyte 1 % (0-0); Monocytes 6 % (0-10); Neutrophil 79 % (42-75); Platelet Count 327 thou/uL (130-400); Platelet Morphology Comment Appears Adequate; RBC Distribution Width 12.4 % (11.5-14.5); Reactive Lymphocytes 1 % (0-10); Red Blood Cell (RBC) Count 4.11 mill/uL (4.70-6.10)
[2019-07-31 04:18] LABS: ALT (SGPT) 20 U/L (8-55); AST (SGOT) 15 U/L (5-34); Albumin 3.3 g/dL (3.4-4.8); Alkaline Phosphatase 78 U/L (40-110); Anion Gap 18 mmol/L (10-20); BUN (Urea Nitrogen) 41 mg/dL (8.4-25.7); Calc. Creatinine Clearance 59 mL/min (70-130); Calcium 8.8 mg/dL (7.8-10.44); Carbon Dioxide 17 mmol/L (23-31); Chloride 118 mmol/L (98-107); Estimated GFR-MDRD 42; Globulin 3.1 g/dL (2.4-3.5); Glucose 500 mg/dL (83-110); Potassium 3.1 mmol/L (3.5-5.1); Protein, Total 6.4 g/dL (5.8-8.1); Sodium 150 mmol/L (136-145)
[2019-07-31 04:32] LABS: Thyroid Stimulating Hormone 1.5687 uIU/mL (0.35-4.94)
[2019-07-31 04:38] LABS: Free T4 (Free Thyroxine) 1.21 ng/dL (0.70-1.48)
[2019-07-31] MEDS: HumaLOG 300 UNITS/3 ML VIAL SC PRN ×3 (04:59→15:12)
[2019-07-31] MEDS: Acetaminophen 500 MG TAB PER TUBE PRN (05:14)
[2019-07-31] MEDS: Sodium Chloride 0.9% 1,000 ML IV SCH ×2 (05:19→19:19)
--- NOTE | 2019-07-31 07:45 | CON ---
DATE OF CONSULTATION: REASON: Request for PEG from Dr. Salas at [facility]. HISTORY OF PRESENT ILLNESS: Mr. Gray has not been able to swallow anything by mouth. He had a stroke, was here at the hospital from 07/20/2019 through 2018 for intraventricular hemorrhage. [facility] but really he has become completely aphasic and not able to eat or drink anything. I have been asked to see him for PEG tube placement. [facility] has discussed the need for enteral feeding and PEG tube placement with the patient's and daughter. The patient is able to add no other history. I have reviewed the patient's chart from both [facility] and from his recent admission here. PAST MEDICAL HISTORY: 1. Diabetes, type 2. 2. Hypertension. 3. Intraventricular hemorrhage after a fall. 4. History of alcohol misuse. PAST SURGICAL HISTORY: 1. Cholecystectomy. 2. Ingrown toenail surgery in the past. ALLERGIES: NONE KNOWN. FAMILY HISTORY: Noncontributory. SOCIAL HISTORY: He is . Nonsmoker. Per his , he is disabled. He drinks alcohol reportedly occasionally. MEDICATIONS: 1. Amlodipine. 2. Atorvastatin. 3. Bupropion. 4. . 5. Pepcid. 6. Fluoxetine. 7. Folic acid. 8. Glipizide. 9. Hydralazine. 10. Insulin sliding scale. 11. Metformin. 12. Losartan. 13. Metoprolol. 14. Potassium. 15. Tamsulosin. 16. Thiamine. 17. Acetaminophen p.r.n. 18. Calcium carbonate p.r.n. 19. Questran p.r.n. 20. Simethicone p.r.n. PHYSICAL EXAMINATION: GENERAL: The patient is resting in bed. He is aphasic. He does not follow with his eyes. He is breathing a little bit quickly; however, rate looks about 18. VITAL SIGNS: Blood pressure 166/84, pulse 85, sat 95%. LUNGS: Clear. HEART: Regular rate and rhythm without clicks or murmurs. ABDOMEN: Soft. Scar in the left lower quadrant. There are no hernias. There is no rebound. There is no guarding. There is no palpable hepatosplenomegaly. EXTREMITIES: No clubbing, cyanosis, or edema. LABORATORY STUDIES: White count 11.5, hemoglobin 16, and platelet count 368. Sodium 145, potassium 3.5, BUN and creatinine 35 and 1.28. Liver function tests were normal on admission. ASSESSMENT: Cerebrovascular accident with fall and intracranial hemorrage. . Rehab is suggested percutaneous endoscopic gastrostomy tube feedings. The patient's family was in agreement. I think that is reasonable. Risks, benefits, possible complications of PEG tube placement including perforation, bleeding, reaction to medication aspiration, infection, and injury to the intraabdominal organs including intestines, spleen, liver, pancreas, and the colon were all discussed with the family over the phone and they wished to proceed. Job ID: [id number] MTDD
[2019-07-31 07:46] LABS: Actual Bicarbonate (HCO3a) 18.8 mEq/L (22-28); Base Excess (BEa) -3.7 mEq/L (-2.0 to +3.0); CO2 Tension 27.5 mmHg (35.0-45.0); Calcium, Ionized 1.21 mmol/L (1.12-1.30); Carboxyhemoglobin (COHb) 0.4 gm% (0.0-3.0); Hemoglobin (Hb) 13.8 g/dL (14.0-18.0); O2 Tension (PaO2) 118.1 mmHg (> 70.0); Potassium - ABG Lab 2.87 mmol/L (3.70-5.30); pH, Arterial 7.45 (7.35-7.45)
--- NOTE | 2019-07-31 07:47 | RAD ---
Frontal radiograph chest: 07/31/2019 COMPARISON: 07/30/2019 HISTORY: Respiratory failure, aspiration pneumonia FINDINGS: There is an endotracheal tube projecting over the tracheal air column in proper position. L ungs are clear. Heart and mediastinal contours appear grossly unremarkable. IMPRESSION: No acute findings.
[2019-07-31 07:53] LABS: ALV-art Gradient 204.025 (0-20); Puncture Site RR
[2019-07-31] MEDS: Diltiazem 125 MG in Sodium Chloride 0.9% 100 ML IVPB SCH (08:10)
[2019-07-31] MEDS: Lorazepam 2 MG/ML VIAL SLOW IVP PRN (08:10)
[2019-07-31] MEDS: Folic Acid 1 MG TAB PER TUBE SCH (08:11)
[2019-07-31] MEDS: Cefepime 2 GM in Sodium Chloride 0.9% 100 ML IVPB SCH ×2 (08:11→21:32)
[2019-07-31] MEDS: Tamsulosin HCl 0.4 MG CAP PO SCH (08:11)
[2019-07-31] MEDS: Thiamine 100 MG TAB PER TUBE SCH (08:11)
[2019-07-31] MEDS: Metoprolol Tartrate 50 MG TAB PER TUBE SCH (08:11)
[2019-07-31] MEDS: Losartan 25 MG TAB PER TUBE SCH ×2 (08:11→10:31)
[2019-07-31] MEDS: Famotidine/PF 20 mg/2ml Vial SLOW IVP SCH ×2 (08:11→21:38)
--- NOTE | 2019-07-31 08:40 | OP ---
DATE OF PROCEDURE: 07/30/2019 PREPROCEDURE DIAGNOSES: 1. Cerebrovascular accident, . 2. Concern for risk of aspiration. PROCEDURE PERFORMED: Esophagogastroduodenoscopy with percutaneous endoscopic gastrostomy tube placement. POSTPROCEDURE DIAGNOSES: 1. Gastritis with erosions. 2. Duodenitis with erosions and yellow based ulcers in the duodenal bulb to the 3rd portion, nonbleeding with eschar material, largest of 5-10 mm shallow based. 3. Percutaneous endoscopic gastrostomy tube placed by Ponsky pull technique, anterior abdominal wall. COMPLICATIONS: The patient developed some arrhythmias in the recovery room. EKG to see if he had gone into atrial fibrillation ANESTHESIA: TIVA with 2 g Ancef preoperatively. PROCEDURE IN DETAIL: The patient was informed of risks, benefits, and possible complications of endoscopy including perforation, bleeding, reaction to medication, and aspiration. Informed consent was obtained. The patient was brought to endoscopy suite, where he was sedated. Once he was comfortably sedated, a bite block was placed inside the orifice and this was advanced through the esophagus, stomach, and second and third portion. The scope was removed. The esophagus and stomach were normal except for erosions and small amount of coffee-ground emesis in the stomach and a hematin staining. The duodenal bulb was noted for shallow white based ulcer scattered in the duodenal bulb, 3rd, and 4th portion. The scope was removed. The PEG was placed in the anterior abdominal wall after transverse illumination and finger indentation. The scope was removed. The patient tolerated the procedure well. . Job ID: [id number]
[2019-07-31] MEDS ORDERED: Prevnar 13-Val Conj/PF 0.5 ML SYRINGE IM ONE (09:00)
[2019-07-31] MEDS ORDERED: FLU VACC TS2019-20(65YR UP)/PF 180 MCG/0.5 ML SYRINGE IM ONE (09:00)
[2019-07-31] MEDS ORDERED: OLMESARTAN MEDOXOMIL PER TUBE SCH (09:00)
[2019-07-31] MEDS ORDERED: Insulin Glargine 10 UNITS in Pre-Filled Syringe 1 EACH SC SCH ×3 (09:00→21:45)
[2019-07-31] MEDS: Vancomycin HCl 1 GM in Premix Bag 1 BAG IVPB SCH ×2 (09:42→22:13)
[2019-07-31] MEDS ORDERED: Potassium Chloride 40 MEQ in Sodium Chloride 0.9% 250 ML 250 ML IVPB SCH (12:30)
--- NOTE | 2019-07-31 12:37 | PDOC.HOSPP ---
- Subjective Subjective: Intubated and sedated. - Objective Vital Signs & Weight: Vital Signs (12 hours) Temp Pulse Resp BP Pulse Ox 07/31/19 12:00 99 F 24 H 07/31/19 10:52 68 94/52 L 07/31/19 10:00 99.9 F H 25 H 07/31/19 08:00 100.1 F H 25 H 100 07/31/19 07:33 82 94/63 07/31/19 07:00 100.1 F H 07/31/19 06:00 30 H 07/31/19 05:00 101.2 F H 07/31/19 04:00 101.1 F H 32 H 07/31/19 03:30 118 H 100 07/31/19 02:00 24 H Weight Admit Weight 222 lb 0.088 oz Weight 222 lb 0.088 oz Most Recent Monitor Data Heart Rate from ECG 68 NIBP 97/46 NIBP BP-Mean 63 Respiration from ECG 24 SpO2 96 I&O: 07/30/19 07/31/19 08/01/19 06:59 06:59 06:59 Intake Total 1567.3 120 Output Total 302 30 Balance 1265.3 90 Result Diagrams: 07/31/19 03:40 07/31/19 03:40 Additional Labs: Accuchecks 07/31/19 07/31/19 07/31/19 09:36 05:01 03:55 POC Glucose 382 H 445 H 441 H Hospitalist ROS - Medication Medications: Active Medications Generic Name Dose Route Start Last Admin Trade Name Freq PRN Reason Stop Dose Admin Acetaminophen 1,000 mg 07/30/19 19:03 07/31/19 05:14 Tylenol PER TUBE 1,000 mg Q6H PRN Administration Mild Pain (1-3) Albuterol/Ipratropium 3 ml 07/30/19 22:30 07/31/19 10:52 Duoneb NEB 3 ml [id number] CHASE Administration Famotidine 20 mg 07/30/19 21:00 07/31/19 08:11 Pepcid SLOW IVP 20 mg Q12HR CHASE Administration Folic Acid 1 mg 07/31/19 09:00 07/31/19 08:11 Folvite PER TUBE 1 mg DAILY CHASE Administration Cefepime HCl 2 gm/ Sodium 100 mls @ 200 mls/hr 07/30/19 21:00 07/31/19 08:11 Chloride IVPB 100 mls Q12HR CHASE Administration Sodium Chloride 1,000 mls @ 75 mls/hr 07/30/19 19:03 07/31/19 05:19 Normal Saline 0.9% IV 1,000 mls .[id number] CHASE Administration Vancomycin HCl 1 gm/ Device 200 mls @ 200 mls/hr 07/30/19 22:00 07/31/19 09: 42 IVPB 200 mls 1000,2200 CHASE Administration Diltiazem HCl 125 mg/ Sodium 125 mls @ 10 mls/hr 07/30/19 19:15 07/31/19 08: 10 Chloride IVPB 125 mls INF CHASE Administration Protocol 10 MG/HR Insulin Glargine 10 units/ 0.1 mls @ 0 mls/hr 07/31/19 11:00 07/31/19 11:33 Miscellaneous Medication SC 07/31/19 13:00 0.1 mls NOW CHASE Administration Insulin Human Lispro 0 units 07/30/19 19:03 07/30/19 22:41 Humalog SC 5 unit .BEDTIME SLIDING SC PRN Administration Bedtime Correctional Scale Insulin Human Lispro 0 units 07/31/19 04:39 07/31/19 09:41 Humalog SC 10 unit .MODERATE SLIDING SC PRN Administration MODERATE SLIDING SCALE Protocol Lorazepam 2 mg 07/31/19 00:09 07/31/19 08:10 Ativan SLOW IVP 08/30/19 00:09 2 mg Q1H PRN Administration Breakthrough agitation Losartan Potassium 100 mg 07/31/19 09:00 07/31/19 10:31 Cozaar PER TUBE Not Given DAILY CHASE Metoprolol Tartrate 50 mg 07/31/19 09:00 07/31/19 08:11 Lopressor PER TUBE 50 mg DAILY CHASE Administration Tamsulosin HCl 0.4 mg 07/31/19 09:00 07/31/19 08:11 Flomax PO 0.4 mg DAILY CHASE Administration Thiamine HCl 100 mg 07/31/19 09:00 07/31/19 08:11 Thiamine PER TUBE 100 mg DAILY CHASE Administration - Exam General - other findings: Intubated and sedated. Does move extremities. Heart: RRR, no murmur, no gallops, no rubs, normal peripheral pulses Respiratory - other findings: Mild scattered rales. Gastrointestinal: soft, non-distended, normal bowel sounds Skin: normal turgor Hosp A/P (1) Atrial fibrillation with rapid ventricular response Code(s): I48.91 - UNSPECIFIED ATRIAL FIBRILLATION Status: Acute (2) Hypernatremia Code(s): E87.0 - HYPEROSMOLALITY AND HYPERNATREMIA Status: Acute (3) Hyperglycemia Code(s): R73.9 - HYPERGLYCEMIA, UNSPECIFIED Status: Acute (4) Left hemiparesis Code(s): G81.94 - HEMIPLEGIA, UNSPECIFIED AFFECTING LEFT NONDOMINANT SIDE Status: Acute (5) Aspiration into airway Code(s): T17.908A - UNSP FB IN RESP TRACT, PART UNSP CAUSING OTH INJURY, INIT Status: Acute (6) Dysphagia Code(s): R13.10 - DYSPHAGIA, UNSPECIFIED Status: Acute (7) AURELIANO (acute kidney injury) Code(s): N17.9 - ACUTE KIDNEY FAILURE, UNSPECIFIED Status: Acute (8) Acute metabolic encephalopathy Code(s): G93.41 - METABOLIC ENCEPHALOPATHY Status: Acute (9) Hypokalemia Code(s): E87.6 - HYPOKALEMIA Status: Acute (10) Intraventricular hemorrhage Code(s): I61.5 - NONTRAUMATIC INTRACEREBRAL HEMORRHAGE, INTRAVENTRICULAR Status: Acute (11) DM2 (diabetes mellitus, type 2) Status: Chronic - Plan Patient had dysphagia and present from rehab for PEG. Had significant secretions and airway compromise. Intubated and sedated. Copious suctioning. BP dropped this morning. Became bradycardic. Cardizem gtt stopped. Fluid boluses given. Continuing NS as the hypernatremia may be due to volume depletion related to poor po intake. If it does not improve, may need 1/2 NS. Additional insulin given in light of hyperglycemia. IV potassium. Neurosurg consult as recommended for worsening mental status in setting of recent ventricular bleed. Concern for obstruction. Continue Vanc and Cefepime.
--- NOTE | 2019-07-31 12:49 | PDOC.PALCO ---
Palliative Care Consult - Consult Details Requesting Physician: Dr Eugene Reason for Consult: goals of care, advance directives assistance, complex decision-making Family Members Present: None - Pertinent HPI 73 year old male who previously was at inpatient rehab secondary to a recent intraventricular hemorrhage. Came to [facility] 07/30 for PEG placement as he continues to have progressive dysphagia. Post op from procedure he had respiratory distress and required bipap with subsequent intubation and mechanical ventilation. - Social History Smoking Status: Never smoker Smoking: no tobacco exposure Alcohol Use: daily Drug Use History: none Living Situation: (Patient is primary caregiver to his ) - Allergies Allergies/Adverse Reactions: Allergies Allergy/AdvReac Type Severity Reaction Status Date / Time No Known Allergies Allergy Verified 07/31/19 03:45 - Subjective Mechanical ventialtion, non responsive. ROS: unable to perform 10 point review secondary to patient non responsive. - Objective Vital Signs: Vital Signs - Most Recent Temp Pulse Resp BP Pulse Ox 99 F 68 24 H 94/52 L 100 07/31/19 12:00 07/31/19 10:52 07/31/19 12:00 07/31/19 10:52 07/31/19 08:00 Palliative Performance Scale: 20 - Physical Exam Deviation from normal: Mechanical ventialtion, non responsive, obese HEENT: moist MMs Deviation from normal: mechanical ventilation, adventicious lung sounds diminished to bases Cardiovascular: irregular Gastrointestinal: positive bowel sounds Deviation from normal: Obese, tympain on percussion, no guarding. PEG Musculoskeletal: edema present Deviation from normal: non purposeful movement to right lower ext Skin: no rash, cap refill <2 seconds - Problem List (1) Palliative care encounter Code(s): Z51.5 - ENCOUNTER FOR PALLIATIVE CARE Current Visit: Yes Status: Acute (2) Acute respiratory failure with hypoxia Code(s): J96.01 - ACUTE RESPIRATORY FAILURE WITH HYPOXIA Current Visit: Yes Status: Acute (3) Intraventricular hemorrhage Code(s): I61.5 - NONTRAUMATIC INTRACEREBRAL HEMORRHAGE, INTRAVENTRICULAR Current Visit: No Status: Acute - Plan/Recommendations Plan: Attemtping to contact patient adopted daughter who is 18 and , paitent is reported not able to come to hospital seconary to handicap. Biological Daughter Kelsie from [place] was coming Nov 2, encouraging to come sooner. Attempting to establish a family meeting to revisit resuscitation status as well as goals of care and possible need to place a trach on patient. Will communicate with providers when a meeting is established. *Attempting to establish a family meeting *Prakash Ahn RNserver software engineer to continue to work towards coordinating meeting to discuss Resuscitation status and goals of care related to recent decline [45] minutes spent on this encounter with >50% of the time in counseling and coordination of care. Thank you for this very appropriate consult.
[2019-07-31] MEDS ORDERED: VANCOMYCIN IVPB PRN (13:06)
--- NOTE | 2019-07-31 16:14 | CT ---
EXAM: CT brain without contrast HISTORY: Change in mental status. Unequal pupils. History of stroke and hemorrhage. COMPARISON: 07/30/2019 TECHNIQUE: Multiple contiguous axial images were obtained and a CT of the brain without contrast. FINDINGS: There are scattered hypodensities in the subcortical and periventricular white matter consi stent with small vessel ischemic disease. There is stable interventricular hemorrhage and slight prominence of the lateral ventricles. No downward herniation or significant midline shift is seen at this time. The calvarium and overlying soft tissues are unremarkable. The visualized paranasal sinuses and masto id air cells are well aerated. IMPRESSION: Stable exam
--- NOTE | 2019-07-31 16:50 | PRG ---
DATE OF SERVICE: 07/31/2019 SUBJECTIVE: Dillon Gray was evaluated this morning. His pupils were equal. He is in no distress. He would not follow commands. His sedation was held. Blood pressure is running a little low this morning, down in the 70s. His propofol was stopped and he was given 1 L of fluid bolus and his fluids were increased. This afternoon, he developed asymmetric pupils and was moving less with sedation held. OBJECTIVE: LUNGS: Coarse equal breath sounds. HEART: Regular rhythm. ABDOMEN: Soft. Neurosurgery is being consulted. LABORATORY DATA: White count 13, hemoglobin 14.5, and platelets 327. Sodium 150, potassium 3.1, chloride 118, bicarb 17, BUN 41, creatinine 1.64, creatinine was 1.28 yesterday. Intake and output, positive 1265. IMPRESSION: Altered mental status with inability to handle secretions ? secondary to obstructive hydrocephalus. I have asked Neurosurgery to see him . CT was repeated this afternoon, no herniation was seen. Given his cerebral atrophy, it is probably hard to determine whether or not he has increased intracranial pressure. Looking at this particular CT, I will defer to Neurosurgery's evaluation. has been consulted. Critical care time 30 minutes. Job ID: [id number]
[2019-08-01] MEDS: Sodium Chloride 0.9% 1,000 ML IV SCH (00:33)
--- NOTE | 2019-08-01 02:17 | PRG ---
DATE OF SERVICE: 07/31/2019 SUBJECTIVE: Mr. Gray is in the ICU, was intubated last night for respiratory failure. It was felt that he possibly has aspiration pneumonia. Since the deterioration in mental status with pupillary response to dilatation, Neurosurgery has been reconsulted. CAT scan performed yesterday evening, no change in ventricular hemorrhage, bilateral ventricle, occipital horns, dilation to the ventricular system was again seen with no change from previous studies from last week when he was here in the hospital. He was re-scanned again this evening at [address] Eugene, again change in mental status. There was felt to be no further change and no overt herniation. Slight prominence of lateral ventricles. OBJECTIVE: VITAL SIGNS: He is intubated. Pulse 75, blood pressure is 92/53, respirations 18. He is nonresponsive, intubated. LUNGS: Coarse rhonchi. HEART: Regular rhythm. ABDOMEN: Soft, nontender. PEG tube site is clean and dry. The PEG tube bumper was loosened. LABORATORY DATA: White count 13,000, hemoglobin 14.5, platelet count 327. PH this morning blood gas was 7.45, O2 118, pCO2 27. Glucose is running in the 400s, down to 279 in the afternoon. Sodium 150, potassium 3.1, BUN and creatinine are 41 and 1.6. Liver function tests normal except for bilirubin of 2. ASSESSMENT: 1. Intracranial hemorrhage suspected to be after a fall. Some mild intraventricular swelling, but no overt herniation. today with holding sedation and a liter of fluid bolus given. Cuney asymmetric pupils and neurosurgeon was reconsulted. 2. PEG tube site appears warm and dry. He is able to start using it. 3. Difficulty having secretions. Suspect chronic aspiration after stroke last week. Based on the findings at endoscopy with thick copious secretions noted in the vocal cords and throat, plan to start tube feeds when ICU staff feels it is appropriate start free water. 4. Await Neurosurgery consult. We will follow along with you. 5. We would stop Pepcid and start Protonix. In light of the duodenal erosions, ulceration noted at endoscopy, likely stress ulceration from intracranial bleeding. 6. Agree with empiric antibiotics for possible aspiration. Job ID: [id number]
[2019-08-01] MEDS: HumaLOG 300 UNITS/3 ML VIAL SC PRN ×4 (04:11→23:20)
[2019-08-01] MEDS: Acetaminophen 500 MG TAB PER TUBE PRN ×2 (04:13→21:18)
[2019-08-01 05:57] LABS: Band 2 % (5-11); Hemoglobin 12.7 g/dL (14.0-18.0); Hypochromia SLIGHT = 6-15 cells (100X) (0-5/hpf); Lymphocytes 8 % (21-51); MDiff Complete? YES; Mean Corpuscular HGB CONC 34.7 g/dL (32.0-36.0); Mean Corpuscular Hemoglobin 35.9 pg (27.0-31.0); Mean Platelet Volume 7.7 fL (7.4-10.4); Monocytes 2 % (0-10); Neutrophil 88 % (42-75); Platelet Count 195 thou/uL (130-400); Platelet Morphology Comment Appears Adequate; RBC Distribution Width 12.3 % (11.5-14.5); Red Blood Cell (RBC) Count 3.55 mill/uL (4.70-6.10); White Blood Cell (WBC) Count 12.7 thou/uL (4.8-10.8)
[2019-08-01 06:02] LABS: Anion Gap 15 mmol/L (10-20); BUN (Urea Nitrogen) 37 mg/dL (8.4-25.7); Calc. Creatinine Clearance 63 mL/min (70-130); Calcium 8.3 mg/dL (7.8-10.44); Carbon Dioxide 16 mmol/L (23-31); Chloride 123 mmol/L (98-107); Estimated GFR-MDRD 45; Glucose 287 mg/dL (83-110); Sodium 151 mmol/L (136-145)
[2019-08-01 06:11] LABS: Potassium 2.7 mmol/L (3.5-5.1)
[2019-08-01] MEDS ORDERED: Magnesium 2 GM/50 ML 2 GM in Premix Bag 1 BAG IVPB PRN (06:42)
[2019-08-01] MEDS ORDERED: CCU ELECTROLYTE REPLACEMENT PROTOCOL FS PRN (06:42)
[2019-08-01] MEDS ORDERED: PHOS-NAK 1 PKT PACK PO PRN ×2 (06:42)
[2019-08-01] MEDS ORDERED: Potassium Phosphate 15 MMOL in Sodium Chloride 0.9% 250 ML 250 ML IV PRN (06:42)
[2019-08-01] MEDS ORDERED: Potassium Phosphate 12 MMOL in Sodium Chloride 0.9% 250 ML 250 ML IV PRN (06:42)
[2019-08-01] MEDS ORDERED: Potassium Chloride 40 MEQ in Premix Bag 1 BAG IVPB PRN (06:42)
[2019-08-01] MEDS ORDERED: Potassium Phosphate 9 MMOL in Sodium Chloride 0.9% 100 ML IVPB PRN (06:42)
[2019-08-01] MEDS ORDERED: Potassium Chloride 20 MEQ TAB PO PRN (06:42)
[2019-08-01] MEDS ORDERED: Magnesium Oxide 400 MG TAB PO PRN ×2 (06:42)
[2019-08-01] MEDS ORDERED: Potassium Chloride 40 MEQ in Sodium Chloride 0.9% 250 ML 250 ML IVPB PRN (06:42)
[2019-08-01] MEDS ORDERED: Potassium Chloride 10 MEQ in Premix Bag 1 BAG IVPB SCH (06:45)
[2019-08-01 07:26] LABS: Actual Bicarbonate (HCO3a) 18.1 mEq/L (22-28); Base Excess (BEa) -4.5 mEq/L (-2.0 to +3.0); Calcium, Ionized 1.23 mmol/L (1.12-1.30); Carboxyhemoglobin (COHb) 0.1 gm% (0.0-3.0); Hemoglobin (Hb) 13.4 g/dL (14.0-18.0); O2 Tension (PaO2) 64.9 mmHg (> 70.0); Potassium - ABG Lab 3.67 mmol/L (3.70-5.30); pH, Arterial 7.44 (7.35-7.45)
[2019-08-01 07:27] LABS: Puncture Site RR
[2019-08-01] MEDS: Cefepime 2 GM in Sodium Chloride 0.9% 100 ML IVPB SCH ×2 (08:49→20:00)
[2019-08-01] MEDS: Losartan 25 MG TAB PER TUBE SCH (08:49)
[2019-08-01] MEDS: Folic Acid 1 MG TAB PER TUBE SCH (08:50)
[2019-08-01] MEDS: Pantoprazole 40 MG VIAL IVP SCH (08:50)
[2019-08-01] MEDS: Metoprolol Tartrate 50 MG TAB PER TUBE SCH (08:50)
[2019-08-01] MEDS: Tamsulosin HCl 0.4 MG CAP PO SCH (08:50)
[2019-08-01] MEDS: Insulin Glargine 20 UNITS in Pre-Filled Syringe 1 EACH SC SCH (08:51)
--- NOTE | 2019-08-01 08:52 | PRG ---
DATE OF SERVICE: 08/01/2019 Mr. Gray is a 73-year-old gentleman known to us for inpatient evaluation of approximately 12 days ago. He presented to the ER status post a fall, complaining of hip pain and had bruising on his head. He underwent a CT examination of the head at that time, which showed an intraventricular hemorrhage with casting of the ventricle. Throughout that hospitalization, he was for the most part asymptomatic with respect to his hemorrhage and was neurologically at baseline. He was discharged to inpatient rehab around the of this month. He was noted to have dysphagia, which seemed to be progressive, which required placement of a PEG tube on the . In the perioperative setting, he developed respiratory distress and essentially required intubation. He has had several repeat CT examinations performed since the initial head CT, which shows anticipated evolution of the underlying blood products without evidence for new hemorrhage. He does have degree of ventriculomegaly, which he has had since the beginning and it is unclear whether this represents age-related atrophic ventriculomegaly versus potential hydrocephalus. However, early on when his ventricles were this size, his neurologic exam was normal. I met with him in the ICU room today, where he is intubated, yet awake. He appears to track and look at me with his eyes, but he does not follow commands. He does make spontaneous movements with all 4 extremities and is actually quite strong. At this point in time, I do not believe he needs to have a ventriculostomy placed. We will continue to monitor his status. Job ID: [id number]
[2019-08-01] MEDS: Thiamine 100 MG TAB PER TUBE SCH (09:12)
[2019-08-01] MEDS ORDERED: Sodium Bicarbonate 50 MEQ in Dextrose 5% in Water 1,000 ML IV SCH (09:15)
[2019-08-01 09:27] LABS: Vancomycin, Trough 16.9 ug/mL
[2019-08-01] MEDS ORDERED: Sodium Bicarbonate 50 MEQ in Sterile Water Injection 1,000 ML IV SCH (09:30)
--- NOTE | 2019-08-01 10:06 | RAD ---
CHEST ONE VIEW: INDICATIONS: History of intubation. COMPARISON: 07/31/2019 FINDINGS: The patient remains intubated. The lungs are clear. No pleural effusion or pneumothorax is evident. IMPRESSION: No acute abnormality. POS: OFF
[2019-08-01] MEDS: Vancomycin HCl 1 GM in Premix Bag 1 BAG IVPB SCH ×2 (10:22→21:18)
[2019-08-01] MEDS: Sodium Chloride 0.45% 1,000 ML IV SCH ×2 (12:14→20:01)
[2019-08-01] MEDS ORDERED: Sodium Bicarbonate Tab 325 MG TAB PER TUBE PRN (12:59)
[2019-08-01] MEDS ORDERED: Pancrelipase DR 12000 1 CAP FS PRN (12:59)
--- NOTE | 2019-08-01 14:20 | PRG ---
DATE OF SERVICE: 08/01/2019 SUBJECTIVE: Mr. Gray remains intubated. Neurosurgery is currently seeing the patient and does not plan on intervening anyway at this time. He is started on tube feeds and is tolerating those. He is being treated for pneumonia. OBJECTIVE: VITAL SIGNS: Temperature max was 101.1 yesterday, pulse 99, and blood pressure 135/95. Off sedation, really not responsive. He does move at times with no overt meaning and then also to any kind of noxious stimuli. ABDOMEN: Soft. The PEG tube site is clean and dry. LABORATORY DATA: White count 12.7, hemoglobin 12.7, platelet count 195. Sodium 151, potassium is 2.7. BUN and creatinine are 37 and 1.53. ASSESSMENT: 1. Aspiration pneumonia. 2. Ventricular hemorrhage after fall. 3. Status post PEG tube. 4. Hypernatremia. RECOMMENDATIONS: We would increase free water intake. We will talk with ICU nurses. We will continue tube feeds. At this point, we will follow from a distance. If I can be of any further assistance in the patient's care, please do not hesitate to contact me. Job ID: [id number]
--- NOTE | 2019-08-01 15:07 | PRG ---
DATE OF SERVICE: 08/01/2019 SUBJECTIVE: Mr. Gray is sedated for mechanical ventilation; however, he is not sedated for mechanical ventilation, but is not awake. Neurosurgery does not feel that he has significant increase in intracranial pressure to justify placing an external drain. OBJECTIVE: VITAL SIGNS: Respiratory rate is in the high 20s to low 30s, heart rate is in the 90s, blood pressure is 157/101. LUNGS: Remarkable for rhonchi bilaterally. HEART: Regular rhythm. ABDOMEN: Soft. EXTREMITIES: Without asymmetry. Dr. Samuel dictated a note today, but the [employer] is not pulling up the file. IMPRESSION: 1. Retained secretions secondary to intraventricular hemorrhage. 2. Status post percutaneous endoscopic gastrostomy. 3. Respiratory failure secondary to retained secretions. He is not weanable without a tracheostomy in my opinion. It is unclear to me at this point whether or not, family wants to proceed down this path. He remains a full resuscitation patient. 4. Hyperchloremic acidosis. More free water. Job ID: [id number] MTDD
--- NOTE | 2019-08-01 17:07 | PDOC.HOSPP ---
- Subjective Encounter Date: 08/01/19 Encounter Time: 12:02 Subjective: 73 y/o male with DM, recent intraventricular hemorrhage associated with aphasia discharged to inpatient rehab readmitted by GI service for PEG tube placement for progressive dysphagia. Patient developed respiratory distress and atrial fib with RVR post PEG tube placement and was admitted to ICU. Later had bronchoscopy and suctioning out of secretion from the lungs and subsequent intubation.Still intubated, sedated and mechanically ventilated. - Objective Vital Signs & Weight: Vital Signs (12 hours) Temp Pulse Resp BP Pulse Ox 08/01/19 16:00 98.5 F 24 H 08/01/19 15:21 99 157/109 H 08/01/19 14:00 32 H 08/01/19 13:15 99 175/98 H 08/01/19 12:00 98.4 F 24 H 08/01/19 10:40 93 113/90 08/01/19 10:00 44 H 08/01/19 08:00 26 H 08/01/19 07:15 101 H 142/91 H 08/01/19 07:13 100 08/01/19 07:00 98.9 F 08/01/19 06:00 100 F H 24 H Weight Admit Weight 222 lb 0.088 oz Weight 222 lb 0.088 oz Most Recent Monitor Data Heart Rate from ECG 88 NIBP 128/71 NIBP BP-Mean 90 Respiration from ECG 22 SpO2 98 I&O: 07/31/19 08/01/19 08/02/19 06:59 06:59 06:59 Intake Total 1567.3 3659 60 Output Total 098 805 8555 Balance 1265.3 5333 -8251 Result Diagrams: 08/01/19 05:34 08/01/19 05:34 Additional Labs: Accuchecks 08/01/19 08/01/19 08/01/19 15:47 09:51 04:11 POC Glucose 224 H 267 H 268 H 07/31/19 21:31 POC Glucose 192 H Hospitalist ROS - Medication Medications: Active Medications Generic Name Dose Route Start Last Admin Trade Name Freq PRN Reason Stop Dose Admin Acetaminophen 1,000 mg 07/30/19 19:03 08/01/19 04:13 Tylenol PER TUBE 1,000 mg Q6H PRN Administration Mild Pain (1-3) Albuterol/Ipratropium 3 ml 07/30/19 22:30 08/01/19 14:16 Duoneb NEB 3 ml [id number] CHASE Administration Folic Acid 1 mg 07/31/19 09:00 08/01/19 08:50 Folvite PER TUBE 1 mg DAILY CHASE Administration Cefepime HCl 2 gm/ Sodium 100 mls @ 200 mls/hr 07/30/19 21:00 08/01/19 08:49 Chloride IVPB 100 mls Q12HR CHASE Administration Vancomycin HCl 1 gm/ Device 200 mls @ 200 mls/hr 07/30/19 22:00 08/01/19 10: 22 IVPB 200 mls 1000,2200 CHASE Administration Diltiazem HCl 125 mg/ Sodium 125 mls @ 10 mls/hr 07/30/19 19:15 07/31/19 08: 10 Chloride IVPB 125 mls INF CHASE Administration Protocol 10 MG/HR Insulin Glargine 20 units/ 0.2 mls @ 0 mls/hr 08/01/19 09:00 08/01/19 08:51 Miscellaneous Medication SC 0.2 mls QAM CHASE Administration Sodium Chloride 1,000 mls @ 100 mls/hr 08/01/19 11:00 08/01/19 12:14 1/2 Normal Saline IV 1,000 mls .Q10H CHASE Administration Insulin Human Lispro 0 units 07/30/19 19:03 08/01/19 15:53 Humalog SC 2 unit .BEDTIME SLIDING SC PRN Administration Bedtime Correctional Scale Insulin Human Lispro 0 units 07/31/19 04:39 07/31/19 15:12 Humalog SC 6 unit .MODERATE SLIDING SC PRN Administration MODERATE SLIDING SCALE Protocol Lorazepam 2 mg 07/31/19 00:09 07/31/19 08:10 Ativan SLOW IVP 08/30/19 00:09 2 mg Q1H PRN Administration Breakthrough agitation Losartan Potassium 100 mg 07/31/19 09:00 08/01/19 08:49 Cozaar PER TUBE 100 mg DAILY CHASE Administration Metoprolol Tartrate 50 mg 07/31/19 09:00 08/01/19 08:50 Lopressor PER TUBE 50 mg DAILY CHASE Administration Pantoprazole Sodium 40 mg 08/01/19 09:00 08/01/19 08:50 Protonix IVP 40 mg DAILY CHASE Administration Tamsulosin HCl 0.4 mg 07/31/19 09:00 08/01/19 08:50 Flomax PO 0.4 mg DAILY CHASE Administration Thiamine HCl 100 mg 07/31/19 09:00 08/01/19 09:12 Thiamine PER TUBE 100 mg DAILY CHASE Administration - Exam General - other findings: sedated. ENT: normocephalic atraumatic ENT - other findings: Et tube is in place Neck: symmetric Heart: irregular Respiratory - other findings: ventilator transmitted sound noted Gastrointestinal: soft, non-distended, normal bowel sounds, diminished bowl sounds Gastrointestinal - other findings: obese Extremities: no edema Neurological - other findings: Sedated. Moves limbs spontaneously Hosp A/P (1) Acute respiratory failure with hypoxia Code(s): J96.01 - ACUTE RESPIRATORY FAILURE WITH HYPOXIA Status: Acute (2) Aspiration pneumonia Code(s): J69.0 - PNEUMONITIS DUE TO INHALATION OF FOOD AND VOMIT Status: Acute (3) Oropharyngeal dysphagia Code(s): R13.12 - DYSPHAGIA, OROPHARYNGEAL PHASE Status: Acute (4) Metabolic acidosis Code(s): E87.2 - ACIDOSIS Status: Acute (5) Acute hypernatremia Code(s): E87.0 - HYPEROSMOLALITY AND HYPERNATREMIA Status: Acute (6) CKD (chronic kidney disease) Code(s): N18.9 - CHRONIC KIDNEY DISEASE, UNSPECIFIED Status: Acute (7) Folate deficiency Code(s): E53.8 - DEFICIENCY OF OTHER SPECIFIED B GROUP VITAMINS Status: Acute (8) B12 deficiency Code(s): E53.8 - DEFICIENCY OF OTHER SPECIFIED B GROUP VITAMINS Status: Acute (9) Aphasia Code(s): R47.01 - APHASIA Status: Acute (10) Atrial fibrillation with rapid ventricular response Code(s): I48.91 - UNSPECIFIED ATRIAL FIBRILLATION Status: Acute (11) Left hemiparesis Code(s): G81.94 - HEMIPLEGIA, UNSPECIFIED AFFECTING LEFT NONDOMINANT SIDE Status: Acute (12) AURELIANO (acute kidney injury) Code(s): N17.9 - ACUTE KIDNEY FAILURE, UNSPECIFIED Status: Acute (13) Acute metabolic encephalopathy Code(s): G93.41 - METABOLIC ENCEPHALOPATHY Status: Acute (14) Hypokalemia Code(s): E87.6 - HYPOKALEMIA Status: Acute (15) Hypomagnesemia Code(s): E83.42 - HYPOMAGNESEMIA Status: Acute (16) Intraventricular hemorrhage Code(s): I61.5 - NONTRAUMATIC INTRACEREBRAL HEMORRHAGE, INTRAVENTRICULAR Status: Acute (17) DM2 (diabetes mellitus, type 2) Status: Chronic (18) Staphylococcal pneumonia Status: Acute - Plan Provide free water via IV and Per tube Start tube feeding Continue antibiotics Replete serum potassium Continue rate control medication as per cardiology Monitor renal function and electrolytes
[2019-08-01 17:47] LABS: Anion Gap 11 mmol/L (10-20); BUN (Urea Nitrogen) 27 mg/dL (8.4-25.7); Calc. Creatinine Clearance 78 mL/min (70-130); Calcium 8.5 mg/dL (7.8-10.44); Carbon Dioxide 19 mmol/L (23-31); Chloride 121 mmol/L (98-107); Estimated GFR-MDRD 58; Glucose 253 mg/dL (83-110); Sodium 148 mmol/L (136-145)
[2019-08-01 17:51] LABS: Potassium 2.9 mmol/L (3.5-5.1)
[2019-08-01] MEDS ORDERED: Insulin Glargine 10 UNITS in Pre-Filled Syringe 1 EACH SC SCH (21:00)
[2019-08-01 22:35] LABS: Potassium 3.8 mmol/L (3.5-5.1)
[2019-08-02] MEDS: Lorazepam 2 MG/ML VIAL SLOW IVP PRN ×2 (00:34→02:33)
[2019-08-02 02:44] LABS: Actual Bicarbonate (HCO3a) 19.1 mEq/L (22-28); Base Excess (BEa) -3.7 mEq/L (-2.0 to +3.0); CO2 Tension 28.3 mmHg (35.0-45.0); Calcium, Ionized 1.17 mmol/L (1.12-1.30); Carboxyhemoglobin (COHb) 0.7 gm% (0.0-3.0); pH, Arterial 7.45 (7.35-7.45)
[2019-08-02 02:45] LABS: Puncture Site RRADIAL
[2019-08-02 02:47] LABS: ALV-art Gradient 102.525 (0-20)
[2019-08-02] MEDS: HumaLOG 300 UNITS/3 ML VIAL SC PRN ×3 (04:13→17:02)
[2019-08-02 06:15] LABS: Eosinophils 3 % (0-10); Hemoglobin 11.9 g/dL (14.0-18.0); Lymphocytes 15 % (21-51); MDiff Complete? YES; Macrocytosis SLIGHT = 6-15 cells (100X) (0-5/hpf); Mean Corpuscular HGB CONC 32.8 g/dL (32.0-36.0); Mean Corpuscular Hemoglobin 34.8 pg (27.0-31.0); Mean Platelet Volume 8.1 fL (7.4-10.4); Monocytes 5 % (0-10); Neutrophil 77 % (42-75); Platelet Count 187 thou/uL (130-400); Platelet Morphology Comment Appears Adequate; RBC Distribution Width 12.3 % (11.5-14.5); Red Blood Cell (RBC) Count 3.42 mill/uL (4.70-6.10); White Blood Cell (WBC) Count 10.9 thou/uL (4.8-10.8)
[2019-08-02 06:23] LABS: Anion Gap 12 mmol/L (10-20); BUN (Urea Nitrogen) 24 mg/dL (8.4-25.7); Calc. Creatinine Clearance 87 mL/min (70-130); Calcium 8.1 mg/dL (7.8-10.44); Carbon Dioxide 18 mmol/L (23-31); Chloride 122 mmol/L (98-107); Estimated GFR-MDRD 60; Glucose 288 mg/dL (83-110); Potassium 3.5 mmol/L (3.5-5.1); Sodium 148 mmol/L (136-145)
[2019-08-02 06:40] LABS: Actual Bicarbonate (HCO3a) 18.3 mEq/L (22-28); Base Excess (BEa) -3.7 mEq/L (-2.0 to +3.0); Calcium, Ionized 1.18 mmol/L (1.12-1.30); Carboxyhemoglobin (COHb) 0.9 gm% (0.0-3.0); Hemoglobin (Hb) 13.5 g/dL (14.0-18.0); O2 Tension (PaO2) 81.9 mmHg (> 70.0); Potassium - ABG Lab 3.42 mmol/L (3.70-5.30); pH, Arterial 7.47 (7.35-7.45)
[2019-08-02 06:43] LABS: CO2 Tension 25.8 mmHg (35.0-45.0)
[2019-08-02 06:44] LABS: Puncture Site RRA
[2019-08-02] MEDS: Sodium Chloride 0.45% 1,000 ML IV SCH (08:42)
[2019-08-02] MEDS: Cefepime 2 GM in Sodium Chloride 0.9% 100 ML IVPB SCH ×2 (08:43→21:54)
[2019-08-02] MEDS: Metoprolol Tartrate 50 MG TAB PER TUBE SCH (08:44)
[2019-08-02] MEDS: Tamsulosin HCl 0.4 MG CAP PO SCH (08:44)
[2019-08-02] MEDS: Losartan 25 MG TAB PER TUBE SCH (08:44)
[2019-08-02] MEDS: Thiamine 100 MG TAB PER TUBE SCH (08:44)
[2019-08-02] MEDS: Folic Acid 1 MG TAB PER TUBE SCH (08:45)
[2019-08-02] MEDS: Pantoprazole 40 MG VIAL IVP SCH (08:45)
[2019-08-02] MEDS ORDERED: Sodium Chloride 0.9% 15 ML NEB ONE (09:00)
--- NOTE | 2019-08-02 09:18 | RAD ---
PORTABLE SEMIUPRIGHT FRONTAL CHEST RADIOGRAPH: Date: 08/02/19 COMPARISON: 08/01/19. HISTORY: Ventilated patient. FINDINGS: Stable endotracheal tube. Stable hazy increased density in the perihilar regions suggest mild vascula r congestion. No lobar consolidation or alveolar edema. IMPRESSION: No significant interval change. POS: OFF
--- NOTE | 2019-08-02 09:52 | PDOC.PALFU ---
Palliative Care Follow-up Note Attempted to contact patient daughter Cammy [phone] (Not certain this is correct #) and @ [phone]. No success at either number. Will continue to attempt to connect with .
--- NOTE | 2019-08-02 09:57 | PRG ---
DATE OF SERVICE: 08/02/2019 SUBJECTIVE: Dillon Gray remains mechanically ventilated. Apparently, he became agitated, moving all his extremities last night. With this, he became tachypneic. He was started on propofol. We will switch him to Precedex today. OBJECTIVE: LUNGS: Remarkable for rhonchi. HEART: Regular rhythm. ABDOMEN: Soft. EXTREMITIES: Without edema. LABORATORY DATA: White count 10.9, hemoglobin 11.9, platelets 187. Sodium 148, potassium 3.5, chloride 122, bicarb 18, BUN 24, creatinine 1.19, glucose 288. IMPRESSION: 1. Ventricular hemorrhage with a poor functional status at this point, clinically stable. Per Neurosurgery, there is no indication for an external ventricular drain. 2. Respiratory failure secondary to retained secretions. 3. Status post PEG. 4. Status post intravascular volume depletion and hypotension, now hyperchloremic secondary to this. 5. Atrial fibrillation. 6. We will try to get by with just Precedex for sedation. We will stop the sedation protocol. He needs a trach if we are going to continue to be aggressive. 7. Hypertension. 8. We will actually switch him to D5W since he continues to be hyperchloremic in spite of half-normal saline. Cerebral edema is not a concern with changing his osmolality as long as we do it slowly. 9. Intake and output were reviewed and he was positive 1888 coming into today. Job ID: [id number]
[2019-08-02] MEDS: Dextrose 5% in Water 1,000 ML IV SCH ×2 (10:10→22:06)
[2019-08-02] MEDS: Insulin Glargine 20 UNITS in Pre-Filled Syringe 1 EACH SC SCH ×2 (10:11→21:55)
[2019-08-02] MEDS: Vancomycin HCl 1 GM in Premix Bag 1 BAG IVPB SCH ×2 (10:36→21:57)
--- NOTE | 2019-08-02 14:00 | PDOC.HOSPP ---
- Subjective Encounter Date: 08/02/19 Encounter Time: 09:58 Subjective: 73 y/o male with DM, recent intraventricular hemorrhage associated with aphasia discharged to inpatient rehab readmitted by GI service for PEG tube placement for progressive dysphagia. Patient developed respiratory distress and atrial fib with RVR post PEG tube placement and was admitted to ICU. Later had bronchoscopy and clearance of retained secretions and subsequent intubation. Still intubated, sedated and mechanically ventilated. - Objective Vital Signs & Weight: Vital Signs (12 hours) Temp Pulse Resp BP 08/02/19 13:00 100.2 F H 08/02/19 12:00 20 08/02/19 10:25 79 142/93 H 08/02/19 10:00 31 H 08/02/19 08:00 99.6 F 23 H 08/02/19 06:25 106 H 144/79 H 08/02/19 06:00 27 H 08/02/19 04:00 100.0 F H 26 H 08/02/19 02:17 100 96/73 08/02/19 02:00 27 H Weight Admit Weight 222 lb 0.088 oz Weight 238 lb 1.588 oz Most Recent Monitor Data Heart Rate from ECG 79 NIBP 129/78 NIBP BP-Mean 95 Respiration from ECG 40 SpO2 100 I&O: 08/01/19 08/02/19 08/03/19 06:59 06:59 06:59 Intake Total 3659 4304.1 488.0 Output Total 906 2415 625 Balance 2753 1889.1 -137.0 Result Diagrams: 08/02/19 05:46 08/02/19 05:46 Additional Labs: Accuchecks 08/02/19 08/02/19 08/01/19 10:54 04:15 23:20 POC Glucose 350 H 274 H 290 H 08/01/19 15:47 POC Glucose 224 H Hospitalist ROS - Medication Medications: Active Medications Generic Name Dose Route Start Last Admin Trade Name Freq PRN Reason Stop Dose Admin Acetaminophen 1,000 mg 07/30/19 19:03 08/01/19 21:18 Tylenol PER TUBE 1,000 mg Q6H PRN Administration Mild Pain (1-3) Albuterol/Ipratropium 3 ml 07/30/19 22:30 08/02/19 10:29 Duoneb NEB 3 ml [id number] CHASE Administration Folic Acid 1 mg 07/31/19 09:00 08/02/19 08:45 Folvite PER TUBE 1 mg DAILY CHASE Administration Cefepime HCl 2 gm/ Sodium 100 mls @ 200 mls/hr 07/30/19 21:00 08/02/19 08:43 Chloride IVPB 100 mls Q12HR CHASE Administration Vancomycin HCl 1 gm/ Device 200 mls @ 200 mls/hr 07/30/19 22:00 08/02/19 10: 36 IVPB 200 mls 1000,2200 CHASE Administration Diltiazem HCl 125 mg/ Sodium 125 mls @ 10 mls/hr 07/30/19 19:15 07/31/19 08: 10 Chloride IVPB 125 mls INF CHASE Administration Protocol 10 MG/HR Insulin Glargine 20 units/ 0.2 mls @ 0 mls/hr 08/01/19 09:00 08/02/19 10:11 Miscellaneous Medication SC 0.2 mls QAM CHASE Administration Dextrose/Water 1,000 mls @ 75 mls/hr 08/02/19 09:15 08/02/19 10:10 D5w IV 1,000 mls .[id number] CHASE Administration Dexmedetomidine HCl 400 mcg/ 100 mls @ 0 mls/hr 08/02/19 10:15 08/02/19 10:35 Sodium Chloride IVPB 100 mls INF CHASE Administration Per Protocol Insulin Human Lispro 0 units 07/30/19 19:03 08/01/19 15:53 Humalog SC 2 unit .BEDTIME SLIDING SC PRN Administration Bedtime Correctional Scale Lorazepam 2 mg 07/31/19 00:09 08/02/19 02:33 Ativan SLOW IVP 08/30/19 00:09 2 mg Q1H PRN Administration Breakthrough agitation Losartan Potassium 100 mg 07/31/19 09:00 08/02/19 08:44 Cozaar PER TUBE 100 mg DAILY CHASE Administration Metoprolol Tartrate 50 mg 07/31/19 09:00 08/02/19 08:44 Lopressor PER TUBE 50 mg DAILY CHASE Administration Pantoprazole Sodium 40 mg 08/01/19 09:00 08/02/19 08:45 Protonix IVP 40 mg DAILY CHASE Administration Potassium Chloride 40 meq 08/01/19 06:42 08/02/19 06:29 Klor-Con PER TUBE 40 meq ASDIR PRN Administration FOR SERUM K+ 2.5-3.5 Propofol 1,000 mg 07/31/19 00:09 08/01/19 19:29 Diprivan IV 08/30/19 00:09 1,000 mg INF PRN Administration TO ACHIEVE GOAL RASS Protocol Tamsulosin HCl 0.4 mg 07/31/19 09:00 08/02/19 08:44 Flomax PO 0.4 mg DAILY CHASE Administration Thiamine HCl 100 mg 07/31/19 09:00 08/02/19 08:44 Thiamine PER TUBE 100 mg DAILY CHASE Administration - Exam General - other findings: sedated ENT: normocephalic atraumatic ENT - other findings: ET tube is in place. Heart: RRR Respiratory - other findings: ventilator transmited breath sound noted Gastrointestinal: soft, non-distended, normal bowel sounds Gastrointestinal - other findings: PEG tube noted Extremities: 1+ LE edema Neurological - other findings: sedated Hosp A/P (1) Acute respiratory failure with hypoxia Code(s): J96.01 - ACUTE RESPIRATORY FAILURE WITH HYPOXIA Status: Acute (2) Aspiration pneumonia Code(s): J69.0 - PNEUMONITIS DUE TO INHALATION OF FOOD AND VOMIT Status: Acute (3) Oropharyngeal dysphagia Code(s): R13.12 - DYSPHAGIA, OROPHARYNGEAL PHASE Status: Acute (4) Metabolic acidosis Code(s): E87.2 - ACIDOSIS Status: Acute (5) Acute hypernatremia Code(s): E87.0 - HYPEROSMOLALITY AND HYPERNATREMIA Status: Acute (6) CKD (chronic kidney disease) Code(s): N18.9 - CHRONIC KIDNEY DISEASE, UNSPECIFIED Status: Acute (7) Folate deficiency Code(s): E53.8 - DEFICIENCY OF OTHER SPECIFIED B GROUP VITAMINS Status: Acute (8) B12 deficiency Code(s): E53.8 - DEFICIENCY OF OTHER SPECIFIED B GROUP VITAMINS Status: Acute (9) Aphasia Code(s): R47.01 - APHASIA Status: Acute (10) Atrial fibrillation with rapid ventricular response Code(s): I48.91 - UNSPECIFIED ATRIAL FIBRILLATION Status: Acute (11) Left hemiparesis Code(s): G81.94 - HEMIPLEGIA, UNSPECIFIED AFFECTING LEFT NONDOMINANT SIDE Status: Acute (12) AURELIANO (acute kidney injury) Code(s): N17.9 - ACUTE KIDNEY FAILURE, UNSPECIFIED Status: Acute (13) Acute metabolic encephalopathy Code(s): G93.41 - METABOLIC ENCEPHALOPATHY Status: Acute (14) Hypokalemia Code(s): E87.6 - HYPOKALEMIA Status: Acute (15) Hypomagnesemia Code(s): E83.42 - HYPOMAGNESEMIA Status: Acute (16) Intraventricular hemorrhage Code(s): I61.5 - NONTRAUMATIC INTRACEREBRAL HEMORRHAGE, INTRAVENTRICULAR Status: Acute (17) DM2 (diabetes mellitus, type 2) Status: Chronic (18) Staphylococcal pneumonia Status: Acute - Plan Increase lantus to 20 bid. Continue sliding scale insulin Continue tube feeding with free water flushes Continue antibiotics Replete serum potassium Continue rate control medication as per cardiology Monitor renal function and electrolytes and correct as indicated.
--- NOTE | 2019-08-02 16:49 | PDOC.PALF ---
Purpose of Conference: Discuss Goals of Care Care Providers Present: Prakash Ahn RNsocial media specialist Prakash Starks [facility] Palliative Care Communicated with Dr Eugene and Dr Montague of family meeting Family Members Present: Daughter of patient Kelsie, and daughter Cammy via phone conference Meeting Comments: Answered questions in relation to decline of patient. Kelsie provided a brief review of patient and role as caregiver for his . Discussed resuscitation status, and reviewed patient expressed wishes. In reviewing patient wishes he had stated that he wanted no extraordinary measures to sustain life. Kelsie expressed that her parents had become hoarders and her mother has had no personal care and Ms Gray is self conscious of this fact. Goals of Care: *Have visit patient *Other daughter of patient coming in from out of town 08/03 *Hope that three daughters and patient are able to visit Mr Gray as a family *Transition to DNAR when family is ready *Possible compassionate extubation in lieu of trach Prakash Ahn RNsocial media specialist to follow and support family and patient Summary: as stated above in Goals of care Total Time Spent with Family: 45 min
[2019-08-02 21:42] LABS: Vancomycin, Trough 18.7 ug/mL
[2019-08-03 06:04] LABS: Band 10 % (5-11); Eosinophils 2 % (0-10); Hemoglobin 11.8 g/dL (14.0-18.0); Lymphocytes 11 % (21-51); MDiff Complete? YES; Mean Corpuscular HGB CONC 34.1 g/dL (32.0-36.0); Mean Platelet Volume 8.7 fL (7.4-10.4); Monocytes 5 % (0-10); Neutrophil 72 % (42-75); Platelet Count 156 thou/uL (130-400); RBC Distribution Width 12.1 % (11.5-14.5); Red Blood Cell (RBC) Count 3.26 mill/uL (4.70-6.10); White Blood Cell (WBC) Count 9.1 thou/uL (4.8-10.8)
[2019-08-03 06:12] LABS: Anion Gap 13 mmol/L (10-20); BUN (Urea Nitrogen) 19 mg/dL (8.4-25.7); Calc. Creatinine Clearance 100 mL/min (70-130); Carbon Dioxide 18 mmol/L (23-31); Chloride 111 mmol/L (98-107); Estimated GFR-MDRD 70; Glucose 423 mg/dL (83-110); Magnesium 1.4 mg/dL (1.6-2.6); Potassium 3.3 mmol/L (3.5-5.1); Sodium 139 mmol/L (136-145)
[2019-08-03 06:43] LABS: Actual Bicarbonate (HCO3a) 19.1 mEq/L (22-28); CO2 Tension 26.6 mmHg (35.0-45.0); Calcium, Ionized 1.15 mmol/L (1.12-1.30); Carboxyhemoglobin (COHb) 1.2 gm% (0.0-3.0); Hemoglobin (Hb) 13.3 g/dL (14.0-18.0); Potassium - ABG Lab 3.26 mmol/L (3.70-5.30); pH, Arterial 7.47 (7.35-7.45)
[2019-08-03 06:45] LABS: Puncture Site LRA
[2019-08-03] MEDS: HumaLOG 300 UNITS/3 ML VIAL SC PRN ×4 (07:14→23:40)
--- NOTE | 2019-08-03 07:51 | RAD ---
EXAM: Single view of the chest HISTORY: Ventilated patient with respiratory failure COMPARISON: 08/02/2019 FINDINGS: Single view of the chest shows a normal sized cardiomediastinal silhouette. The endotrache al tube is unchanged in position. There is no evidence of consolidation, mass, or pleural effusion. The bones are unremarkable. IMPRESSION: No evidence of acute cardiopulmonary disease
[2019-08-03] MEDS ORDERED: Magnesium Sulfate 4 GM in Sodium Chloride 0.9% 250 ML 250 ML IVPB SCH (08:15)
[2019-08-03] MEDS: Cefepime 2 GM in Sodium Chloride 0.9% 100 ML IVPB SCH ×2 (09:33→21:30)
[2019-08-03] MEDS: Thiamine 100 MG TAB PER TUBE SCH (09:35)
[2019-08-03] MEDS: Losartan 25 MG TAB PER TUBE SCH (09:35)
[2019-08-03] MEDS: Metoprolol Tartrate 50 MG TAB PER TUBE SCH (09:35)
[2019-08-03] MEDS: Folic Acid 1 MG TAB PER TUBE SCH (09:36)
[2019-08-03] MEDS: Tamsulosin HCl 0.4 MG CAP PO SCH (09:36)
[2019-08-03] MEDS: Pantoprazole 40 MG VIAL IVP SCH (09:40)
[2019-08-03] MEDS: Sodium Chloride 0.9% (PF) 10 ML VIAL FS PRN (09:40)
--- NOTE | 2019-08-03 10:01 | EKG ---
Test Reason : Blood Pressure : / mmHG Vent. Rate : 112 BPM Atrial Rate : 112 BPM P-R Int : 000 ms QRS Dur : 086 ms QT Int : 382 ms P-R-T Axes : 059 -18 112 degrees QTc Int : 521 ms Sinus tachycardia with PAC's Nonspecific ST and T wave abnormality Prolonged QT Abnormal ECG Confirmed by JADA JONES MD ([id number]) on 08/03/2019 10:01:04 AM Referred By: STALIN Confirmed By:AJDA JONES MD
--- NOTE | 2019-08-03 10:04 | EKG ---
Test Reason : Blood Pressure : / mmHG Vent. Rate : 085 BPM Atrial Rate : 085 BPM P-R Int : 160 ms QRS Dur : 082 ms QT Int : 414 ms P-R-T Axes : 039 000 235 degrees QTc Int : 492 ms Sinus rhythm with Blocked Premature atrial complexes Prolonged QT Abnormal ECG Confirmed by JADA JONES MD ([id number]) on 08/03/2019 10:04:20 AM Referred By: REED Confirmed By:JADA JONES MD
[2019-08-03] MEDS: Acetaminophen 650 MG/20.3 ML UDCUP PER TUBE PRN (11:39)
[2019-08-03] MEDS: Insulin Glargine 20 UNITS in Pre-Filled Syringe 1 EACH SC SCH ×2 (11:56→21:31)
--- NOTE | 2019-08-03 13:38 | PDOC.HOSPP ---
- Subjective Encounter Date: 08/03/19 Encounter Time: 10:37 Subjective: 73 y/o male with DM, recent intraventricular hemorrhage associated with aphasia discharged to inpatient rehab readmitted by GI service for PEG tube placement for progressive dysphagia. Patient developed respiratory distress and atrial fib with RVR post PEG tube placement and was admitted to ICU. Later had bronchoscopy and clearance of retained secretions and subsequent intubation. Still intubated, sedated and mechanically ventilated. Still having intermittent fever. - Objective Vital Signs & Weight: Vital Signs (12 hours) Temp Pulse Resp Pulse Ox 08/03/19 12:00 23 H 08/03/19 10:48 84 24 H 99 08/03/19 10:00 101.3 F H 17 08/03/19 08:00 101.5 F H 08/03/19 06:25 94 24 H 95 08/03/19 03:23 83 30 H 96 Weight Admit Weight 222 lb 0.088 oz Weight 243 lb 2.718 oz Most Recent Monitor Data Heart Rate from ECG 67 NIBP 125/70 NIBP BP-Mean 88 Respiration from ECG 22 SpO2 93 I&O: 08/02/19 08/03/19 08/04/19 06:59 06:59 06:59 Intake Total 4304.1 4735.2 280 Output Total 2415 2675 970 Balance 1889.1 2060.2 -690 Result Diagrams: 08/03/19 05:25 08/03/19 05:25 Additional Labs: Accuchecks 08/02/19 08/02/19 21:56 16:09 POC Glucose 273 H 348 H Hospitalist ROS - Medication Medications: Active Medications Generic Name Dose Route Start Last Admin Trade Name Freq PRN Reason Stop Dose Admin Acetaminophen 1,000 mg 08/03/19 08:12 08/03/19 11:39 Tylenol Elixir PER TUBE 1,000 mg Q6H PRN Administration Headache/Fever or Pain Albuterol/Ipratropium 3 ml 07/30/19 22:30 08/03/19 10:48 Duoneb NEB 3 ml [id number] CHASE Administration Folic Acid 1 mg 07/31/19 09:00 08/03/19 09:36 Folvite PER TUBE 1 mg DAILY CHASE Administration Cefepime HCl 2 gm/ Sodium 100 mls @ 200 mls/hr 07/30/19 21:00 08/03/19 09:33 Chloride IVPB 100 mls Q12HR CHASE Administration Diltiazem HCl 125 mg/ Sodium 125 mls @ 10 mls/hr 07/30/19 19:15 07/31/19 08: 10 Chloride IVPB 125 mls INF CHASE Administration Protocol 10 MG/HR Insulin Glargine 20 units/ 0.2 mls @ 0 mls/hr 08/01/19 09:00 08/03/19 11:56 Miscellaneous Medication SC 0.2 mls QAM CHASE Administration Potassium Chloride 40 meq/ 270 mls @ 135 mls/hr 08/01/19 06:42 08/03/19 07:32 Sodium Chloride IVPB 270 mls ASDIR PRN Administration FOR SERUM K+ 2.5 - 3.5 Magnesium Sulfate 1 gm/ Sodium 102 mls @ 102 mls/hr 08/01/19 06:42 08/03/19 07:32 Chloride IV 102 mls PRN PRN Administration MAG LEVEL 1.4 - 2.0 Dextrose/Water 1,000 mls @ 75 mls/hr 08/02/19 09:15 08/02/19 22:06 D5w IV 1,000 mls .[id number] CHASE Administration Dexmedetomidine HCl 400 mcg/ 100 mls @ 0 mls/hr 08/02/19 10:15 08/02/19 22:53 Sodium Chloride IVPB 100 mls INF CHASE Administration Per Protocol Insulin Glargine 20 units/ 0.2 mls @ 1 mls/hr 08/02/19 21:00 08/02/19 21:55 Miscellaneous Medication SC 0.2 mls HS CHASE Administration Insulin Human Lispro 0 units 07/30/19 19:03 08/01/19 15:53 Humalog SC 2 unit .BEDTIME SLIDING SC PRN Administration Bedtime Correctional Scale Insulin Human Lispro 0 units 08/02/19 16:56 08/03/19 11:29 Humalog SC 11 unit .AGGRESSIVE SLIDING PRN Administration AGGRESSIVE SLIDING SCALE Protocol Losartan Potassium 100 mg 07/31/19 09:00 08/03/19 09:35 Cozaar PER TUBE 100 mg DAILY CHASE Administration Metoprolol Tartrate 50 mg 07/31/19 09:00 08/03/19 09:35 Lopressor PER TUBE 50 mg DAILY CHASE Administration Pantoprazole Sodium 40 mg 08/01/19 09:00 08/03/19 09:40 Protonix IVP 40 mg DAILY CHASE Administration Potassium Chloride 40 meq 08/01/19 06:42 08/02/19 06:29 Klor-Con PER TUBE 40 meq ASDIR PRN Administration FOR SERUM K+ 2.5-3.5 Sodium Chloride 10 ml 07/31/19 23:50 08/03/19 09:40 Normal Saline Pf FS 10 ml PRN PRN Administration RECONSTITUTION Tamsulosin HCl 0.4 mg 07/31/19 09:00 08/03/19 09:36 Flomax PO 0.4 mg DAILY CHASE Administration Thiamine HCl 100 mg 07/31/19 09:00 08/03/19 09:35 Thiamine PER TUBE 100 mg DAILY CHASE Administration - Exam General - other findings: sedated. ENT: normocephalic atraumatic ENT - other findings: ET tube in place Heart: irregular Respiratory - other findings: fair air entry with crackles/tranmitted sound Gastrointestinal: soft, non-distended Gastrointestinal - other findings: PEG tube in place Extremities: no cyanosis, 1+ LE edema Neurological - other findings: sedated Hosp A/P (1) Acute respiratory failure with hypoxia Code(s): J96.01 - ACUTE RESPIRATORY FAILURE WITH HYPOXIA Status: Acute (2) Aspiration pneumonia Code(s): J69.0 - PNEUMONITIS DUE TO INHALATION OF FOOD AND VOMIT Status: Acute (3) Oropharyngeal dysphagia Code(s): R13.12 - DYSPHAGIA, OROPHARYNGEAL PHASE Status: Acute (4) Metabolic acidosis Code(s): E87.2 - ACIDOSIS Status: Acute (5) Acute hypernatremia Code(s): E87.0 - HYPEROSMOLALITY AND HYPERNATREMIA Status: Acute (6) CKD (chronic kidney disease) Code(s): N18.9 - CHRONIC KIDNEY DISEASE, UNSPECIFIED Status: Acute (7) Folate deficiency Code(s): E53.8 - DEFICIENCY OF OTHER SPECIFIED B GROUP VITAMINS Status: Acute (8) B12 deficiency Code(s): E53.8 - DEFICIENCY OF OTHER SPECIFIED B GROUP VITAMINS Status: Acute (9) Aphasia Code(s): R47.01 - APHASIA Status: Acute (10) Atrial fibrillation with rapid ventricular response Code(s): I48.91 - UNSPECIFIED ATRIAL FIBRILLATION Status: Acute (11) Left hemiparesis Code(s): G81.94 - HEMIPLEGIA, UNSPECIFIED AFFECTING LEFT NONDOMINANT SIDE Status: Acute (12) AURELIANO (acute kidney injury) Code(s): N17.9 - ACUTE KIDNEY FAILURE, UNSPECIFIED Status: Acute (13) Acute metabolic encephalopathy Code(s): G93.41 - METABOLIC ENCEPHALOPATHY Status: Acute (14) Hypokalemia Code(s): E87.6 - HYPOKALEMIA Status: Acute (15) Hypomagnesemia Code(s): E83.42 - HYPOMAGNESEMIA Status: Acute (16) Intraventricular hemorrhage Code(s): I61.5 - NONTRAUMATIC INTRACEREBRAL HEMORRHAGE, INTRAVENTRICULAR Status: Acute (17) DM2 (diabetes mellitus, type 2) Status: Chronic (18) Staphylococcal pneumonia Status: Acute - Plan DC Dectrose infusion due to hyperglycemia and resolved hypernatremia Continue lantus to 20 bid and sliding scale insulin Continue tube feeding with free water flushes Continue broad spectrum antibiotics Replete serum potassium Continue rate control medication as per cardiology Monitor renal function and electrolytes and correct as indicated. Patient relatives are contemplating ternimal extubation. Palliative care following.
[2019-08-03] MEDS: Dextrose 5% in Water 1,000 ML IV SCH (17:03)
--- NOTE | 2019-08-03 19:41 | PRG ---
DATE OF SERVICE: 08/03/2019 SUBJECTIVE: Dillon Gray remains mechanically ventilated. Apparently, the family is contemplating withdrawal of care. OBJECTIVE: VITAL SIGNS: He is afebrile this afternoon, respiratory rate is 21 on FiO2 of 30%, blood pressure 143/76. LUNGS: Remarkable for rhonchi bilaterally. HEART: Regular rhythm. ABDOMEN: Soft. EXTREMITIES: Without asymmetry. NEUROLOGIC: Does follow commands. LABORATORY DATA: White count 9.1, hemoglobin 11.8, platelets 156. Sodium 139, potassium 3.3, chloride 111, bicarb 18, BUN 19, creatinine 1.04. He is on more aggressive sliding scale. Blood sugars have been in the 200 to 300 range. Grew staph out of his bronchoscopy. Chest x-ray has no infiltrates. IMPRESSION: Methicillin-resistant Staphylococcus aureus isolated from his tracheobronchial tree, possibly a colonizer. The majority of his secretions was below his vocal cords and were clear. He did have some purulent secretions in his proximal mainstem bronchi. He also had abundant secretions in his mouth that the bronchoscope had passed through with intubation. My opinion if he has bronchitis, it is probably not methicillin-resistant Staphylococcus aureus related. The bigger issue is inability to swallow. We are awaiting family decision about withdrawal of care. CRITICAL CARE TIME: 30 minutes. Job ID: [id number]
[2019-08-04] MEDS: Dextrose 5% in Water 1,000 ML IV SCH (01:14)
[2019-08-04 04:22] LABS: Anion Gap 14 mmol/L (10-20); BUN (Urea Nitrogen) 18 mg/dL (8.4-25.7); Calc. Creatinine Clearance 116 mL/min (70-130); Calcium 7.9 mg/dL (7.8-10.44); Carbon Dioxide 17 mmol/L (23-31); Chloride 113 mmol/L (98-107); Estimated GFR-MDRD 82; Glucose 265 mg/dL (83-110); Potassium 3.4 mmol/L (3.5-5.1); Sodium 141 mmol/L (136-145)
[2019-08-04 04:39] LABS: Band 1 % (5-11); Eosinophils 2 % (0-10); Hemoglobin 11.6 g/dL (14.0-18.0); Hypochromia SLIGHT = 6-15 cells (100X) (0-5/hpf); Lymphocytes 9 % (21-51); MDiff Complete? YES; Macrocytosis SLIGHT = 6-15 cells (100X) (0-5/hpf); Mean Corpuscular HGB CONC 34.2 g/dL (32.0-36.0); Mean Corpuscular Hemoglobin 36.5 pg (27.0-31.0); Mean Platelet Volume 9.2 fL (7.4-10.4); Monocytes 7 % (0-10); Neutrophil 81 % (42-75); Platelet Count 164 thou/uL (130-400); Platelet Morphology Comment Appears Adequate; RBC Distribution Width 12.2 % (11.5-14.5); Red Blood Cell (RBC) Count 3.18 mill/uL (4.70-6.10); White Blood Cell (WBC) Count 7.8 thou/uL (4.8-10.8)
[2019-08-04] MEDS: HumaLOG 300 UNITS/3 ML VIAL SC PRN ×4 (05:47→19:42)
[2019-08-04 07:49] LABS: Actual Bicarbonate (HCO3a) 22.4 mEq/L (22-28); CO2 Tension 29.6 mmHg (35.0-45.0); Calcium, Ionized 1.14 mmol/L (1.12-1.30); Carboxyhemoglobin (COHb) 0.3 gm% (0.0-3.0); Hemoglobin (Hb) 12.1 g/dL (14.0-18.0); O2 Tension (PaO2) 79.5 mmHg (> 70.0); Potassium - ABG Lab 3.31 mmol/L (3.70-5.30)
[2019-08-04 07:50] LABS: Puncture Site L.R.
[2019-08-04] MEDS: Losartan 25 MG TAB PER TUBE SCH (09:03)
[2019-08-04] MEDS: Folic Acid 1 MG TAB PER TUBE SCH (09:04)
[2019-08-04] MEDS: Metoprolol Tartrate 50 MG TAB PER TUBE SCH (09:04)
[2019-08-04] MEDS: Thiamine 100 MG TAB PER TUBE SCH (09:04)
[2019-08-04] MEDS: Tamsulosin HCl 0.4 MG CAP PO SCH (09:04)
[2019-08-04] MEDS: Cefepime 2 GM in Sodium Chloride 0.9% 100 ML IVPB SCH ×2 (09:04→19:41)
[2019-08-04] MEDS: Insulin Glargine 20 UNITS in Pre-Filled Syringe 1 EACH SC SCH (09:05)
[2019-08-04] MEDS: Pantoprazole 40 MG VIAL IVP SCH (09:05)
[2019-08-04] MEDS: Sodium Chloride 0.9% (PF) 10 ML VIAL FS PRN (09:05)
--- NOTE | 2019-08-04 11:30 | PRG ---
DATE OF SERVICE: 08/04/2019 SUBJECTIVE: Dillon Gray remains mechanically ventilated. He still has coarse rhonchi. It is my opinion that he will not last long once he is extubated. I am told the family has made a decision not to trach in, but they have not made a decision when to withdraw care. Apparently, patient's has been admitted to the hospital. She is in poor health. From what I can tell, the daughter is fairly overwhelmed because of apparently the is a hoarder. OBJECTIVE: VITAL SIGNS: Remained stable. LUNGS: Remarkable for diffuse rhonchi. HEART: Regular rhythm. ABDOMEN: Soft. IMPRESSION: 1. Status post ventricular hemorrhage with an inability to handle his secretions. 2. Status post percutaneous endoscopic gastrostomy. 3. Status post intubation for secretions. 4. Methicillin-resistant Staphylococcus aureus isolated from tracheobronchial secretions with no evidence of pneumonia. We are simply awaiting decision as to the timing of withdrawal of care. I do not anticipate that he will do well with withdrawal. Secretions will become an issue again and he will eventually succumb to this. In my opinion, there is no family at the bedside today. Critical care time is 35 minutes. Job ID: [id number] MTDD
[2019-08-04] MEDS ORDERED: Insulin Glargine 25 UNITS in Pre-Filled Syringe 1 EACH SC SCH (13:15)
--- NOTE | 2019-08-04 13:17 | PDOC.HOSPP ---
- Subjective Encounter Date: 08/04/19 Encounter Time: 10:16 Subjective: 73 y/o male with DM, recent intraventricular hemorrhage associated with aphasia discharged to inpatient rehab readmitted by GI service for PEG tube placement for progressive dysphagia. Patient developed respiratory distress and atrial fib with RVR post PEG tube placement and was admitted to ICU. Later had bronchoscopy and clearance of retained secretions and subsequent intubation. Still intubated, sedated and mechanically ventilated. No new problem. - Objective Vital Signs & Weight: Vital Signs (12 hours) Temp Pulse Resp BP Pulse Ox 08/04/19 12:00 98.8 F 18 08/04/19 11:32 60 157/77 H 08/04/19 11:31 63 19 97 08/04/19 10:00 23 H 08/04/19 08:00 99.6 F 27 H 94 L 08/04/19 07:38 68 156/73 H 08/04/19 07:36 67 26 H 95 08/04/19 05:53 18 08/04/19 04:00 18 08/04/19 03:00 98.9 F 08/04/19 02:40 71 33 H 97 08/04/19 02:00 19 Weight Admit Weight 222 lb 0.088 oz Weight 244 lb 14.937 oz Most Recent Monitor Data Heart Rate from ECG 74 NIBP 162/98 NIBP BP-Mean 119 Respiration from ECG 28 SpO2 96 I&O: 08/03/19 08/04/19 08/05/19 06:59 06:59 06:59 Intake Total 4735.2 2560.2 Output Total 2675 2380 705 Balance 2060.2 180.2 -705 Result Diagrams: 08/04/19 03:47 08/04/19 03:47 Additional Labs: Accuchecks 08/04/19 08/03/19 08/03/19 10:17 23:36 16:48 POC Glucose 289 H 268 H 341 H 08/03/19 11:26 POC Glucose 347 H Hospitalist ROS - Medication Medications: Active Medications Generic Name Dose Route Start Last Admin Trade Name Freq PRN Reason Stop Dose Admin Acetaminophen 1,000 mg 08/03/19 08:12 08/03/19 11:39 Tylenol Elixir PER TUBE 1,000 mg Q6H PRN Administration Headache/Fever or Pain Albuterol/Ipratropium 3 ml 07/30/19 22:30 08/04/19 11:31 Duoneb NEB 3 ml [id number] CHASE Administration Folic Acid 1 mg 07/31/19 09:00 08/04/19 09:04 Folvite PER TUBE 1 mg DAILY CHASE Administration Cefepime HCl 2 gm/ Sodium 100 mls @ 200 mls/hr 07/30/19 21:00 08/04/19 09:04 Chloride IVPB 100 mls Q12HR CHASE Administration Diltiazem HCl 125 mg/ Sodium 125 mls @ 10 mls/hr 07/30/19 19:15 07/31/19 08: 10 Chloride IVPB 125 mls INF CHASE Administration Protocol 10 MG/HR Potassium Chloride 40 meq/ 270 mls @ 135 mls/hr 08/01/19 06:42 08/03/19 07:32 Sodium Chloride IVPB 270 mls ASDIR PRN Administration FOR SERUM K+ 2.5 - 3.5 Magnesium Sulfate 1 gm/ Sodium 102 mls @ 102 mls/hr 08/01/19 06:42 08/03/19 07:32 Chloride IV 102 mls PRN PRN Administration MAG LEVEL 1.4 - 2.0 Dexmedetomidine HCl 400 mcg/ 100 mls @ 0 mls/hr 08/02/19 10:15 08/03/19 14:38 Sodium Chloride IVPB 100 mls INF CHASE Administration Per Protocol Insulin Human Lispro 0 units 07/30/19 19:03 08/04/19 10:16 Humalog SC 3 unit .BEDTIME SLIDING SC PRN Administration Bedtime Correctional Scale Insulin Human Lispro 0 units 08/02/19 16:56 08/04/19 05:47 Humalog SC 9 unit .AGGRESSIVE SLIDING PRN Administration AGGRESSIVE SLIDING SCALE Protocol Losartan Potassium 100 mg 07/31/19 09:00 08/04/19 09:03 Cozaar PER TUBE 100 mg DAILY CHASE Administration Metoprolol Tartrate 50 mg 07/31/19 09:00 08/04/19 09:04 Lopressor PER TUBE 50 mg DAILY CHASE Administration Pantoprazole Sodium 40 mg 08/01/19 09:00 08/04/19 09:05 Protonix IVP 40 mg DAILY CHASE Administration Potassium Chloride 40 meq 08/01/19 06:42 08/04/19 09:44 K-Dur PO 40 meq ASDIR PRN Administration FOR SERUM K+ 2.5 - 3.5 Potassium Chloride 40 meq 08/01/19 06:42 08/04/19 05:33 Klor-Con PER TUBE 40 meq ASDIR PRN Administration FOR SERUM K+ 2.5-3.5 Sodium Chloride 10 ml 07/31/19 23:50 08/04/19 09:05 Normal Saline Pf FS 10 ml PRN PRN Administration RECONSTITUTION Tamsulosin HCl 0.4 mg 07/31/19 09:00 08/04/19 09:04 Flomax PO 0.4 mg DAILY CHASE Administration Thiamine HCl 100 mg 07/31/19 09:00 08/04/19 09:04 Thiamine PER TUBE 100 mg DAILY CHASE Administration - Exam General Appearance: awake alert Eye: anicteric sclera ENT: normocephalic atraumatic ENT - other findings: ET tube in place Heart: RRR Respiratory: no ronchi Respiratory - other findings: fair air entry with transmitted sound Gastrointestinal: soft, non-distended, normal bowel sounds Extremities - other findings: trace edema of hands Neurological - other findings: sedated. Moving all limbs spontaneously Hosp A/P (1) Acute respiratory failure with hypoxia Code(s): J96.01 - ACUTE RESPIRATORY FAILURE WITH HYPOXIA Status: Acute (2) Aspiration pneumonia Code(s): J69.0 - PNEUMONITIS DUE TO INHALATION OF FOOD AND VOMIT Status: Acute (3) Oropharyngeal dysphagia Code(s): R13.12 - DYSPHAGIA, OROPHARYNGEAL PHASE Status: Acute (4) Metabolic acidosis Code(s): E87.2 - ACIDOSIS Status: Acute (5) Acute hypernatremia Code(s): E87.0 - HYPEROSMOLALITY AND HYPERNATREMIA Status: Acute (6) CKD (chronic kidney disease) Code(s): N18.9 - CHRONIC KIDNEY DISEASE, UNSPECIFIED Status: Acute (7) Folate deficiency Code(s): E53.8 - DEFICIENCY OF OTHER SPECIFIED B GROUP VITAMINS Status: Acute (8) B12 deficiency Code(s): E53.8 - DEFICIENCY OF OTHER SPECIFIED B GROUP VITAMINS Status: Acute (9) Aphasia Code(s): R47.01 - APHASIA Status: Acute (10) Atrial fibrillation with rapid ventricular response Code(s): I48.91 - UNSPECIFIED ATRIAL FIBRILLATION Status: Acute (11) Left hemiparesis Code(s): G81.94 - HEMIPLEGIA, UNSPECIFIED AFFECTING LEFT NONDOMINANT SIDE Status: Acute (12) AURELIANO (acute kidney injury) Code(s): N17.9 - ACUTE KIDNEY FAILURE, UNSPECIFIED Status: Acute (13) Acute metabolic encephalopathy Code(s): G93.41 - METABOLIC ENCEPHALOPATHY Status: Acute (14) Hypokalemia Code(s): E87.6 - HYPOKALEMIA Status: Acute (15) Hypomagnesemia Code(s): E83.42 - HYPOMAGNESEMIA Status: Acute (16) Intraventricular hemorrhage Code(s): I61.5 - NONTRAUMATIC INTRACEREBRAL HEMORRHAGE, INTRAVENTRICULAR Status: Acute (17) DM2 (diabetes mellitus, type 2) Status: Chronic (18) Staphylococcal pneumonia Status: Acute - Plan Increase lantus to 25 bid and continue sliding scale insulin Continue tube feeding with free water flushes Continue broad spectrum antibiotics Replete serum potassium Continue rate control medication as per cardiology Monitor renal function and electrolytes and correct as indicated. Patient relatives are contemplating terminal extubation. Palliative care following.
[2019-08-04] MEDS: Vancomycin HCl 1 GM in Premix Bag 1 BAG IVPB SCH (16:24)
[2019-08-04] MEDS: Acetaminophen 650 MG/20.3 ML UDCUP PER TUBE PRN (17:21)
--- NOTE | 2019-08-04 21:18 | PRG ---
DATE OF SERVICE: 08/04/2019 SUBJECTIVE: Dillon Gray was intermittently febrile. His hemodynamics remained stable. He remains mechanically ventilated. He is only on 30% FiO2. Blood pressure this evening is 159/72, heart rate 63. He is in sinus rhythm. Intake and output is positive 180. OBJECTIVE: LUNGS: Remarkable for rhonchi. HEART: Regular rhythm. ABDOMEN: Soft. He will not follow commands. I am told the family is adamantly opposed him having a tracheostomy. He already has a PEG in place this admission. Family is trying to talk to the about withdrawal support, but I am not sure the is competent to make any of these decisions. I do think it is commendable that they want her approval. She is apparently hospitalized and they were bringing her down to the ICU to see him today. IMPRESSION: 1. Ventricular hemorrhage with inability to handle secretions. 2. Status post PEG placement. 3. Status post emergent intubation for secretions. 4. Methicillin-resistant Staphylococcus aureus isolated from his tracheobronchial secretions with intubation. I do not feel he has pneumonia. He certainly could have fever from his bleeding and atelectasis. It really does not matter since family has clearly stated that they will not permit the trach placement. He will not survive without a trach placement and this has been relayed to family. We are awaiting a decision about withdrawal of care. ADDENDUM: CRITICAL CARE TIME: 30 minutes. Job ID: [id number]
[2019-08-05] MEDS: Acetaminophen 650 MG/20.3 ML UDCUP PER TUBE PRN (04:45)
[2019-08-05 04:53] LABS: Anion Gap 15 mmol/L (10-20); BUN (Urea Nitrogen) 19 mg/dL (8.4-25.7); Calc. Creatinine Clearance 124 mL/min (70-130); Calcium 8.2 mg/dL (7.8-10.44); Carbon Dioxide 20 mmol/L (23-31); Chloride 110 mmol/L (98-107); Estimated GFR-MDRD 88; Glucose 311 mg/dL (83-110); Potassium 3.2 mmol/L (3.5-5.1); Sodium 142 mmol/L (136-145)
[2019-08-05 04:58] LABS: Band 1 % (5-11); Eosinophils 2 % (0-10); Lymphocytes 15 % (21-51); MDiff Complete? YES; Macrocytosis SLIGHT = 6-15 cells (100X) (0-5/hpf); Mean Corpuscular HGB CONC 34.4 g/dL (32.0-36.0); Mean Corpuscular Hemoglobin 36.5 pg (27.0-31.0); Monocytes 8 % (0-10); Neutrophil 74 % (42-75); Platelet Count 162 thou/uL (130-400); Platelet Morphology Comment Appears Adequate; RBC Distribution Width 12.1 % (11.5-14.5); Red Blood Cell (RBC) Count 3.29 mill/uL (4.70-6.10); White Blood Cell (WBC) Count 8.3 thou/uL (4.8-10.8)
[2019-08-05] MEDS: HumaLOG 300 UNITS/3 ML VIAL SC PRN ×2 (05:14→10:46)
[2019-08-05 07:33] LABS: Actual Bicarbonate (HCO3a) 23.1 mEq/L (22-28); Base Excess (BEa) -0.5 mEq/L (-2.0 to +3.0); CO2 Tension 34.7 mmHg (35.0-45.0); Calcium, Ionized 1.15 mmol/L (1.12-1.30); Carboxyhemoglobin (COHb) 0.5 gm% (0.0-3.0); Hemoglobin (Hb) 12.3 g/dL (14.0-18.0); O2 Tension (PaO2) 100.1 mmHg (> 70.0); Potassium - ABG Lab 3.94 mmol/L (3.70-5.30); pH, Arterial 7.44 (7.35-7.45)
[2019-08-05 07:35] LABS: ALV-art Gradient 70.425 (0-20); Puncture Site L.R.
[2019-08-05] MEDS: Cefepime 2 GM in Sodium Chloride 0.9% 100 ML IVPB SCH (09:39)
[2019-08-05] MEDS: Pantoprazole 40 MG VIAL IVP SCH (09:39)
[2019-08-05] MEDS: Losartan 25 MG TAB PER TUBE SCH (09:40)
[2019-08-05] MEDS: Folic Acid 1 MG TAB PER TUBE SCH (09:41)
[2019-08-05] MEDS: Metoprolol Tartrate 50 MG TAB PER TUBE SCH (09:41)
[2019-08-05] MEDS: Tamsulosin HCl 0.4 MG CAP PO SCH (09:41)
[2019-08-05] MEDS: Thiamine 100 MG TAB PER TUBE SCH (09:41)
--- NOTE | 2019-08-05 10:43 | PDOC.HOSPP ---
- Subjective Encounter Date: 08/05/19 Encounter Time: 10:41 Subjective: Waning started , the patient insubated, awake. - Objective Vital Signs & Weight: Vital Signs (12 hours) Temp Pulse Resp BP Pulse Ox 08/05/19 10:00 15 08/05/19 08:00 16 95 08/05/19 07:10 53 L 138/88 08/05/19 07:08 57 L 14 97 08/05/19 07:00 99.9 F H 08/05/19 06:00 22 H 08/05/19 04:00 99.5 F 20 08/05/19 02:20 60 08/05/19 02:19 70 20 94 L 08/05/19 02:00 21 H 08/05/19 00:00 17 08/04/19 23:00 99.6 F Weight Admit Weight 222 lb 0.088 oz Weight 244 lb 4.355 oz Most Recent Monitor Data Heart Rate from ECG 60 NIBP 149/87 NIBP BP-Mean 107 Respiration from ECG 23 SpO2 95 I&O: 08/04/19 08/05/19 08/06/19 06:59 06:59 06:59 Intake Total 2560.2 1760.5 100 Output Total 2380 2420 260 Balance 180.2 -659.5 -160 Result Diagrams: 08/05/19 04:13 08/05/19 04:13 Additional Labs: Accuchecks 08/04/19 08/04/19 19:44 15:50 POC Glucose 328 H 315 H Hospitalist ROS - Medication Medications: Active Medications Generic Name Dose Route Start Last Admin Trade Name Freq PRN Reason Stop Dose Admin Acetaminophen 1,000 mg 08/03/19 08:12 08/05/19 04:45 Tylenol Elixir PER TUBE 1,000 mg Q6H PRN Administration Headache/Fever or Pain Albuterol/Ipratropium 3 ml 07/30/19 22:30 08/05/19 07:08 Duoneb NEB 3 ml [id number] CHASE Administration Folic Acid 1 mg 07/31/19 09:00 08/05/19 09:41 Folvite PER TUBE 1 mg DAILY CHASE Administration Cefepime HCl 2 gm/ Sodium 100 mls @ 200 mls/hr 07/30/19 21:00 08/05/19 09:39 Chloride IVPB 100 mls Q12HR CHASE Administration Diltiazem HCl 125 mg/ Sodium 125 mls @ 10 mls/hr 07/30/19 19:15 07/31/19 08: 10 Chloride IVPB 125 mls INF CHASE Administration Protocol 10 MG/HR Potassium Chloride 40 meq/ 270 mls @ 135 mls/hr 08/01/19 06:42 08/03/19 07:32 Sodium Chloride IVPB 270 mls ASDIR PRN Administration FOR SERUM K+ 2.5 - 3.5 Magnesium Sulfate 1 gm/ Sodium 102 mls @ 102 mls/hr 08/01/19 06:42 08/03/19 07:32 Chloride IV 102 mls PRN PRN Administration MAG LEVEL 1.4 - 2.0 Dexmedetomidine HCl 400 mcg/ 100 mls @ 0 mls/hr 08/02/19 10:15 08/05/19 05:35 Sodium Chloride IVPB 100 mls INF CHASE Administration Per Protocol Insulin Glargine 25 units/ 0.25 mls @ 0 mls/hr 08/04/19 13:15 08/05/19 09:38 Miscellaneous Medication SC 0.25 mls QAM CHASE Administration Insulin Glargine 25 units/ 0.25 mls @ 0 mls/hr 08/04/19 13:15 08/04/19 19:42 Miscellaneous Medication SC 0.25 mls HS CHASE Administration Insulin Human Lispro 0 units 07/30/19 19:03 08/04/19 19:42 Humalog SC 4 unit .BEDTIME SLIDING SC PRN Administration Bedtime Correctional Scale Insulin Human Lispro 0 units 08/02/19 16:56 08/05/19 05:14 Humalog SC 11 unit .AGGRESSIVE SLIDING PRN Administration AGGRESSIVE SLIDING SCALE Protocol Losartan Potassium 100 mg 07/31/19 09:00 08/05/19 09:40 Cozaar PER TUBE 100 mg DAILY CHASE Administration Metoprolol Tartrate 50 mg 07/31/19 09:00 08/05/19 09:41 Lopressor PER TUBE 50 mg DAILY CHASE Administration Pantoprazole Sodium 40 mg 08/01/19 09:00 08/05/19 09:39 Protonix IVP 40 mg DAILY CHASE Administration Potassium Chloride 40 meq 08/01/19 06:42 08/04/19 09:44 K-Dur PO 40 meq ASDIR PRN Administration FOR SERUM K+ 2.5 - 3.5 Potassium Chloride 40 meq 08/01/19 06:42 08/05/19 05:13 Klor-Con PER TUBE 40 meq ASDIR PRN Administration FOR SERUM K+ 2.5-3.5 Sodium Chloride 10 ml 07/31/19 23:50 08/04/19 09:05 Normal Saline Pf FS 10 ml PRN PRN Administration RECONSTITUTION Tamsulosin HCl 0.4 mg 07/31/19 09:00 08/05/19 09:41 Flomax PO 0.4 mg DAILY CHASE Administration Thiamine HCl 100 mg 07/31/19 09:00 08/05/19 09:41 Thiamine PER TUBE 100 mg DAILY CHASE Administration - Exam Eye: PERRL, anicteric sclera, scleral icterus ENT: normocephalic atraumatic, no oropharyngeal lesions, moist mucosa, dry oral mucosa Neck: supple, symmetric, no JVD, no thyromegaly, no lymphadenopathy, no carotid bruit, JVD Heart: RRR, no murmur, no gallops, no rubs, normal peripheral pulses, irregular , diminshed peripheral pulses, murmur present, II/IV, III/IV Respiratory: CTAB, no wheezes, no rales, no ronchi, normal chest expansion, no tachypnea, normal percussion, rales, rhonchi, tachypneic, wheezes Gastrointestinal: soft, non-tender, non-distended, normal bowel sounds, no palpable masses, no hepatomegaly, no splenomegaly, no bruit, no guarding, no rigidity, tender to palpation, distended, diminished bowl sounds, voluntary guarding Extremities: no cyanosis, no clubbing, no edema, 1+ LE edema, 2+ LE edema, clubbing Hosp A/P (1) Acute respiratory failure with hypoxia Code(s): J96.01 - ACUTE RESPIRATORY FAILURE WITH HYPOXIA Status: Acute (2) Aspiration pneumonia Code(s): J69.0 - PNEUMONITIS DUE TO INHALATION OF FOOD AND VOMIT Status: Acute - Plan wean the vent as per pulmonary, continue care, the has been confused and unable to understand the clinical situation of the patient.
[2019-08-05] MEDS: Morphine 2 MG/ML SYRINGE SLOW IVP PRN ×2 (13:34→20:24)
--- NOTE | 2019-08-05 16:57 | PRG ---
DATE OF SERVICE: 08/05/2019 SUBJECTIVE: Mr. Gray did well overnight. OBJECTIVE: VITAL SIGNS: Heart rate is 80, blood pressure is 140s to 150s, respiratory rate is in the 20s. LUNGS: He still has rhonchi diffusely. HEART: Regular rhythm. ABDOMEN: Soft. LABORATORY DATA: White count 8.3, hemoglobin 12, platelets 162. Electrolytes are unremarkable. Blood gas showed pH of 7.44, CO2 of 34, pO2 of 100. IMPRESSION: Status post intubation for retained secretions after an intraventricular hemorrhage. Neurosurgery recommended no further surgeries. He has been extubated this afternoon per family wishes for comfort care. He will be transferred out of the Critical Care Unit. Job ID: [id number]
[2019-08-05] MEDS: Morphine 4 MG/ML VIAL SLOW IVP PRN (21:43)
[2019-08-06] MEDS: Morphine 4 MG/ML VIAL SLOW IVP PRN ×5 (01:26→20:59)
[2019-08-06] MEDS: Lorazepam 2 MG/ML VIAL SLOW IVP PRN ×2 (10:42→17:46)
--- NOTE | 2019-08-06 14:41 | PDOC.HOSPP ---
- Subjective Encounter Date: 08/06/19 Encounter Time: 14:40 Subjective: the patient has been placed on hospice - Objective Vital Signs & Weight: Vital Signs (12 hours) Temp Pulse Resp BP Pulse Ox 08/06/19 08:57 95 08/06/19 08:25 97.5 F L 76 20 154/89 H 95 Weight Admit Weight 222 lb 0.088 oz Weight 244 lb 4.355 oz Most Recent Monitor Data Heart Rate from ECG 80 NIBP 140/92 NIBP BP-Mean 108 Respiration from ECG 28 SpO2 93 I&O: 08/05/19 08/06/19 08/07/19 06:59 06:59 06:59 Intake Total 1760.5 190 Output Total 2420 3217 Balance -659.5 -3027 Result Diagrams: 08/05/19 04:13 08/05/19 04:13 Additional Labs: Accuchecks 08/05/19 16:30 POC Glucose 303 H Hospitalist ROS - Medication Medications: Active Medications Generic Name Dose Route Start Last Admin Trade Name Memoq PRN Reason Stop Dose Admin Acetaminophen 1,000 mg 08/03/19 08:12 08/05/19 04:45 Tylenol Elixir PER TUBE 1,000 mg Q6H PRN Administration Headache/Fever or Pain Lorazepam 0.5 mg 08/06/19 10:19 08/06/19 10:42 Ativan SLOW IVP 0.5 mg Q6H PRN Administration Anxiety/Agitation Morphine Sulfate 2 mg 07/31/19 00:09 08/05/19 20:24 Morphine SLOW IVP 08/30/19 00:09 2 mg Q1H PRN Administration BREAKTHROUGH PAIN/Agitation Morphine Sulfate 4 mg 08/05/19 13:58 08/06/19 09:47 Morphine SLOW IVP 4 mg Q1H PRN Administration Pain Sodium Chloride 10 ml 07/31/19 23:50 08/04/19 09:05 Normal Saline Pf FS 10 ml PRN PRN Administration RECONSTITUTION - Exam ENT: normocephalic atraumatic, no oropharyngeal lesions, moist mucosa, dry oral mucosa Neck: supple, symmetric, no JVD, no thyromegaly, no lymphadenopathy, no carotid bruit, JVD Heart: RRR, no murmur, no gallops, no rubs, normal peripheral pulses, irregular , diminshed peripheral pulses, murmur present, II/IV, III/IV Respiratory: CTAB, no wheezes, no rales, no ronchi, normal chest expansion, no tachypnea, normal percussion, rales, rhonchi, tachypneic, wheezes Gastrointestinal: soft, non-tender, non-distended, normal bowel sounds, no palpable masses, no hepatomegaly, no splenomegaly, no bruit, no guarding, no rigidity, tender to palpation, distended, diminished bowl sounds, voluntary guarding Hosp A/P (1) Acute respiratory failure with hypoxia Code(s): J96.01 - ACUTE RESPIRATORY FAILURE WITH HYPOXIA Status: Acute (2) Aspiration pneumonia Code(s): J69.0 - PNEUMONITIS DUE TO INHALATION OF FOOD AND VOMIT Status: Acute - Plan wean the vent as per pulmonary, continue care, the has been confused and unable to understand the clinical situation of the patient.The patient been placed on Hospice, contine comfort care as per the hospice team
[2019-08-07] MEDS: Lorazepam 2 MG/ML VIAL SLOW IVP PRN (01:05)
[2019-08-07] MEDS: Morphine 4 MG/ML VIAL SLOW IVP PRN ×6 (04:38→13:11)
[2019-08-07 08:11] VITALS: BP 104/65; TEMP 103.1
[2019-08-07] MEDS: Acetaminophen 650 MG/20.3 ML UDCUP PER TUBE PRN (10:51)
[2019-08-07 11:04] VITALS: BMI 33.1
--- NOTE | 2019-08-08 01:59 | DIS ---
DATE OF ADMISSION: 07/30/2019 DATE OF DISCHARGE: 08/07/2019 FINAL DIAGNOSIS: Acute respiratory failure, on hospice. HOSPITAL COURSE: The patient was admitted with pneumonitis and was placed on ICU services, subsequently transferred to medical floor. As the patient's condition is advanced, it has been concluded to place the patient on medical services. Family requested hospice service and it has been consulted and recommended inpatient hospice. As a result, the patient has been transferred back to inpatient hospice. DISCHARGE INSTRUCTIONS: Discharge the patient to inpatient hospice. Orders as per recommendations of hospice care. Job ID: [id number]
== END 2019-08-07 15:48 | disposition hospice, home (50) | DRG 207 ==
LOC: SDC 12:22 → CCU 19:41 → T4-A 08-05 15:34
PROVIDERS: ADMIT Internal Medicine Gastroenterology; ATTEND Internal Medicine Gastroenterology
PROC: 5A1955Z Respiratory Ventilation, Greater than 96 Consecutive Hours (ICD-10-PCS; principal; 2019-07-30)
PROC: 0BH18EZ Insertion of Endotracheal Airway into Trachea, Via Natural or Artificial Opening Endoscopic (ICD-10-PCS; 2019-07-30)
PROC: 5A09357 Assistance with Respiratory Ventilation, Less than 24 Consecutive Hours, Continuous Positive Airway Pressure (ICD-10-PCS; 2019-07-30)
PROC: 0DH63UZ Insertion of Feeding Device into Stomach, Percutaneous Approach (ICD-10-PCS; 2019-07-30)
PROC: 3E02340 Introduction of Influenza Vaccine into Muscle, Percutaneous Approach (ICD-10-PCS; 2019-07-31)
PROC: 3E0234Z Introduction of Serum, Toxoid and Vaccine into Muscle, Percutaneous Approach (ICD-10-PCS; 2019-07-31)
DX: J69.0 Pneumonitis due to inhalation of food and vomit (principal); J96.01 Acute respiratory failure with hypoxia; G93.41 Metabolic encephalopathy; I69.154 Hemiplegia and hemiparesis following nontraumatic intracerebral hemorrhage affecting left non-dominant side; E87.0 Hyperosmolality and hypernatremia; N17.9 Acute kidney failure, unspecified; E87.2 Acidosis; Z51.5 Encounter for palliative care; Z66 Do not resuscitate; Z23 Encounter for immunization; F10.10 Alcohol abuse, uncomplicated; E53.8 Deficiency of other specified B group vitamins; I48.91 Unspecified atrial fibrillation; N18.3 Chronic kidney disease, stage 3 (moderate); E11.22 Type 2 diabetes mellitus with diabetic chronic kidney disease; I12.9 Hypertensive chronic kidney disease with stage 1 through stage 4 chronic kidney disease, or unspecified chronic kidney disease; K29.60 Other gastritis without bleeding; K29.80 Duodenitis without bleeding; E87.6 Hypokalemia; I69.191 Dysphagia following nontraumatic intracerebral hemorrhage; I69.120 Aphasia following nontraumatic intracerebral hemorrhage; Z90.49 Acquired absence of other specified parts of digestive tract; Z79.899 Other long term (current) drug therapy; Z79.4 Long term (current) use of insulin; E87.8 Other disorders of electrolyte and fluid balance, not elsewhere classified; R13.12 Dysphagia, oropharyngeal phase; E83.42 Hypomagnesemia; E11.65 Type 2 diabetes mellitus with hyperglycemia
CPT/HCPCS: 36415; 36416; 70450; 71045; 80048; 80053; 80202; 82805; 83735; 84439; 84443; 85007; 85027; 87070; 87077; 87186; 87205; 93005; 93010; 94002; 94003; 94640; 94660; A4217; A4218; C9113; J0690; J0692; J1815; J2060; J2270; J2370; J2704; J3370; J3475; J3480; J3490; J7050; J7620; S0028